=== PATIENT | male | born 1985 | race Caucasian/White ===

== ENCOUNTER 2016-06-29 20:44 | Emergency (ER) | payer OTHER ==
--- NOTE | 2016-06-29 20:53 | ER Document Report ---
ED Medical Screen (RME) - General Stated Complaint: URINARY ISSUE Time seen by provider: 20:50 Mode of Arrival: Wheelchair Information source: Patient Notes: 31-year-old male presents to ED for urinary retention since last night with severe pain to the left flank and suprapubic area. States that he feels like his his genitals are getting pulled out. He has a history of kidney stones but never pain like this. States has nausea cannot vomit due to a Minal. I have greeted and performed a rapid initial assessment of this patient. A comprehensive ED assessment and evaluation of the patient, analysis of test results and completion of medical decision making process will be conducted by an additional ED providers. TRAVEL OUTSIDE OF THE [place] IN LAST 30 DAYS: No - Related Data Allergies/Adverse Reactions: ciprofloxacin [From Cipro] Allergy (Severe, Verified 03/15/16 17:30) Shortness of Breath gadoteridol [From Prohance] Allergy (Severe, Verified 04/06/16 12:57) Shortness of Breath hyoscyamine sulfate [From Levsin] Allergy (Severe, Verified 03/15/16 17:30) Shortness of Breath metoclopramide HCl [From Reglan] Allergy (Severe, Verified 03/15/16 17:30) Shortness of Breath promethazine HCl [From Phenergan] Allergy (Severe, Verified 03/15/16 17:30) Shortness of Breath Past Medical History - Past Medical History Cardiac Medical History: Reports: Hx Coronary Artery Disease - CARDIAC CATH/ LOOP RECORDER/ ABLATION X 2, Hx Heart Attack - X 3 Pulmonary Medical History: Reports: Hx Pneumonia Neurological Medical History: Reports: Hx Seizures - 2012- COMA FOR ONE WEEK- MEDICATION INDUCED Renal/ Medical History: Reports: Hx Kidney Stones - 23 stones GI Medical History: Reports: Hx Hiatal Hernia Musculoskeltal Medical History: Reports Hx Arthritis, Reports Hx Musculoskeletal Deformity, Reports Hx Musculoskeletal Trauma Psychiatric Medical History: Reports: Hx Anxiety, Hx Post Traumatic Stress Disorder Past Surgical History: Reports: Hx Abdominal Surgery - hernia repair, Minal Fundoplication, Hx Appendectomy, Hx Cardiac Surgery - 2X ablation, Hx Inguinal Hernia - 2, Hx Orthopedic Surgery - R shoulder - Immunizations Immunizations up to date: Yes Hx Diphtheria, Pertussis, Tetanus Vaccination: Yes - 09/24/2015
[2016-06-29] MEDS ORDERED: IBUPROFEN 600 MG TABLET PO ONE (20:57)
[2016-06-29] MEDS ORDERED: ONDANSETRON ODT 4 MG TAB (6 TAB/DSPK) PO PRN (20:57)
[2016-06-29] MEDS ORDERED: MORPHINE SULFATE 10 MG/ML INJ IV ONE (22:58)
[2016-06-29] MEDS ORDERED: NORMAL SALINE 1000 ML 1,000 ML IV ONE (22:59)
--- NOTE | 2016-06-29 23:01 | ER Document Report ---
ED GI/ - General Chief Complaint: Urinary Problem Stated Complaint: URINARY ISSUE Time seen by provider: 22:55 Mode of Arrival: Wheelchair Notes: Patient is a 31-year-old male that comes emergency department for chief complaint of inability to urinate today, states that he felt nauseated, felt sharp pain in his left lower abdomen and sharp pain in his flank worse on the left side. Patient states he felt like he was getting chills earlier. Patient has a known history of kidney stones and a left-sided hemorrhagic cyst, states he is seen [facility] urology and they are pending a scan for monitoring. TRAVEL OUTSIDE OF THE [place] IN LAST 30 DAYS: No - Related Data Allergies/Adverse Reactions: ciprofloxacin [From Cipro] Allergy (Severe, Verified 03/15/16 17:30) Shortness of Breath gadoteridol [From Prohance] Allergy (Severe, Verified 04/06/16 12:57) Shortness of Breath hyoscyamine sulfate [From Levsin] Allergy (Severe, Verified 03/15/16 17:30) Shortness of Breath metoclopramide HCl [From Reglan] Allergy (Severe, Verified 03/15/16 17:30) Shortness of Breath promethazine HCl [From Phenergan] Allergy (Severe, Verified 03/15/16 17:30) Shortness of Breath Past Medical History - General Information source: Patient - Social History Smoking Status: Never Smoker Chew tobacco use (# tins/day): Yes Frequency of alcohol use: Rare Drug Abuse: None Lives with: Family Family History: Reviewed & Not Pertinent, Arthritis, CAD, CVA, DM, Hyperlipidemia, Hypertension, Malignancy, Thyroid Disfunction Patient has suicidal ideation: No Patient has homicidal ideation: No - Past Medical History Cardiac Medical History: Reports: Hx Coronary Artery Disease - CARDIAC CATH/ LOOP RECORDER/ ABLATION X 2, Hx Heart Attack - X 3 Pulmonary Medical History: Reports: Hx Pneumonia Neurological Medical History: Reports: Hx Seizures - 2012- COMA FOR ONE WEEK- MEDICATION INDUCED Renal/ Medical History: Reports: Hx Kidney Stones - 23 stones. Denies: Hx Peritoneal Dialysis GI Medical History: Reports: Hx Hiatal Hernia Musculoskeltal Medical History: Reports Hx Arthritis, Reports Hx Musculoskeletal Deformity, Reports Hx Musculoskeletal Trauma Psychiatric Medical History: Reports: Hx Anxiety, Hx Post Traumatic Stress Disorder Past Surgical History: Reports: Hx Abdominal Surgery - hernia repair, Minal Fundoplication, Hx Appendectomy, Hx Cardiac Surgery - 2X ablation, Hx Inguinal Hernia - 2, Hx Orthopedic Surgery - R shoulder - Immunizations Immunizations up to date: Yes Hx Diphtheria, Pertussis, Tetanus Vaccination: Yes - 09/24/2015 Hx Pneumococcal Vaccination: 06/03/13 Review of Systems - Review of Systems Constitutional: No symptoms reported EENT: No symptoms reported Cardiovascular: No symptoms reported Respiratory: No symptoms reported Gastrointestinal: No symptoms reported Genitourinary: See HPI Male Genitourinary: No symptoms reported Musculoskeletal: No symptoms reported Skin: No symptoms reported Hematologic/Lymphatic: No symptoms reported Neurological/Psychological: No symptoms reported Physical Exam - Vital signs Vitals: Temp Pulse Resp BP Pulse Ox 98 F 118 H 20 129/86 H 100 06/29/16 20:50 06/29/16 20:50 06/29/16 20:50 06/29/16 20:50 06/29/16 20:50 Interpretation: Normal - General General appearance: Anxious In distress: Moderate - Patient appears to be in pain, pacing - HEENT Head: Normocephalic, Atraumatic Eyes: Normal Conjunctiva: Normal Extraocular movements intact: Yes Eyelashes: Normal Pupils: PERRL Sinus: Normal Nasal: Normal Mouth/Lips: Normal Mucous membranes: Normal Pharynx: Normal Neck: Normal - Respiratory Respiratory status: No respiratory distress Chest status: Nontender Breath sounds: Normal. No: Decreased air movement, Wheezing Chest palpation: Normal - Cardiovascular Rhythm: Regular Heart sounds: Normal auscultation Murmur: No - Abdominal Inspection: Normal Distension: No distension Bowel sounds: Normal Tenderness: Tender - Tender generally in the left lower abdomen Organomegaly: No organomegaly - Genitourinary Inspection: Normal Tenderness: Nontender Cremasteric reflex: Normal. No: Right reflex absent, Left reflex absent Scrotum: Normal - Back Back: Normal, Nontender. No: Tender, CVA tenderness - Extremities General upper extremity: Normal inspection, Nontender, Normal strength, Normal temperature General lower extremity: Normal inspection, Nontender, Normal strength, Normal temperature - Neurological Neuro grossly intact: Yes Cognition: Normal Orientation: AAOx4 [place] Coma Scale Eye Opening: Spontaneous [place] Coma Scale Verbal: Oriented [place] Coma Scale Motor: Obeys Commands [place] Coma Scale Total: 15 Speech: Normal Motor strength normal: LUE, RUE, LLE, RLE Sensory: Normal - Psychological Associated symptoms: Anxious - Skin Skin Temperature: Warm Skin Moisture: Dry Skin Color: Normal Course - Re-evaluation Re-evalutation: Patient had a Ramirez catheter placed before I saw the patient, he states that he felt somewhat better afterwards, less than 400 mL of urine output, abdomen is gig tender on the left side. Unremarkable genital exam, nonspecific back exam. Afebrile, not hypotensive. Tachycardia initially. Ultrasound shows no abnormality, laboratory workup was unremarkable, patient needed additional rounds of medication but afterwards became asymptomatic. Ramirez catheter was removed. After this patient states he feels much better, prepared to follow-up with his urologist for likely passing a kidney stone, requesting to leave. Discussed return precautions including fever, severe pain , etc. Patient states understanding and agreement. - Vital Signs Vital signs: Temp Pulse Resp BP Pulse Ox 97.5 F 88 20 92/66 L 95 06/30/16 03:32 06/30/16 03:32 06/30/16 03:32 06/30/16 03:32 06/30/16 03:32 - Laboratory Result Diagrams: 06/30/16 00:08 06/30/16 00:08 Laboratory results interpreted by me: 06/29/16 06/30/16 06/30/16 21:46 00:08 00:08 RBC 4.34 L Hgb 12.6 L Hct 36.3 L RDW 14.5 H Potassium 3.2 L Glucose 148 H Urine Glucose (UA) 50 H Urine Ketones TRACE H Discharge - Discharge Clinical Impression: Flank pain Abdominal pain Qualifiers: Abdominal location: lower abdomen, unspecified Qualified Code(s): R10.30 - Lower abdominal pain, unspecified Condition: Stable Disposition: HOME, SELF-CARE Additional Instructions: Your ultrasound does not show infection or swelling, your lab and urine workup is unremarkable. It is likely you are passing a stone. Take pain medication as prescribed, take nausea medicine if needed, follow-up with your urologist for additional management. Return to the emergency department for any concerning worsening symptoms including fever, severe pain, etc. Prescriptions: Ondansetron [Zofran Odt 4 mg Tablet] 1 - 2 tab PO Q4H PRN #15 tab.rapdis PRN Reason: For Nausea/Vomiting Oxycodone HCl/Acetaminophen [Percocet 5-325 mg Tablet] 1 - 2 tab PO Q4H PRN #20 tablet PRN Reason: Referrals: ARNIE MORENO PA-C [Primary Care Provider] - Follow up as needed
[2016-06-30] MEDS ORDERED: DIPHENHYDRAMINE HCL 50 MG/ML VIAL IV ONE ×2 (00:10→02:05)
[2016-06-30 00:17] LABS: ABSOLUTE BASOPHILS # (AUTO) 0.1 10^3/uL (0.0-0.2); ABSOLUTE EOSINOPHILS # (AUTO) 0.1 10^3/uL (0.0-0.6); ABSOLUTE LYMPHOCYTES (AUTO) 2.3 10^3/uL (0.5-4.7); ABSOLUTE MONOCYTES (AUTO) 0.5 10^3/uL (0.1-1.4); ABSOLUTE NEUT (AUTO) 5.3 10^3/uL (1.7-8.2); BASOPHILS % (AUTO) 0.9 % (0-2); EOSINOPHILS % (AUTO) 0.8 % (0-6); HEMATOCRIT 36.3 % (37.9-51.0); HEMOGLOBIN 12.6 g/dL (13.5-17.0); HGB HCT DIFFERENCE 1.5; LYMPHOCYTES % (AUTO) 28.4 % (13-45); MEAN CORPUSCULAR HGB CONC 34.6 g/dL (32.0-36.0); MEAN CORPUSCULAR VOLUME 84 fl (80-97); MONOCYTES % (AUTO) 5.9 % (3-13); RED BLOOD COUNT 4.34 10^6/uL (4.35-5.55); RED CELL DISTRIBUTION WIDTH 14.5 % (11.5-14.0); WHITE BLOOD COUNT 8.3 10^3/uL (4.0-10.5)
[2016-06-30] MEDS ORDERED: HYDROMORPHONE HCL INJ/PF 2 MG/ML AMPULE IV ONE ×2 (00:28→01:50)
[2016-06-30 01:09] LABS: ANION GAP 16 (5-19)
[2016-06-30 01:18] LABS: BLOOD UREA NITROGEN 12 mg/dL (7-20); CARBON DIOXIDE 24 mmol/L (22-30); CHLORIDE 103 mmol/L (98-107); GLUCOSE 148 mg/dL (75-110); POTASSIUM 3.2 mmol/L (3.6-5.0); SODIUM 142.6 mmol/L (137-145)
[2016-06-30] MEDS ORDERED: KETOROLAC TROMETHAMINE INJ/PF 30 MG/1 ML SDV IV ONE (01:50)
[2016-06-30 01:51] LABS: AMORPHOUS SEDIMENT,URINE TRACE /HPF; APPEARANCE,URINE TURBID; BILIRUBIN,URINE NEGATIVE (NEGATIVE); CALCIUM OXALATE CRYSTALS,URINE FEW /HPF; GLUCOSE, URINE 50 mg/dL (NEGATIVE); KETONES,URINE TRACE mg/dL (NEGATIVE); LEUKOCYTE ESTERASE,URINE NEGATIVE (NEGATIVE); NITRITE,URINE NEGATIVE (NEGATIVE); PROTEIN,URINE NEGATIVE (NEGATIVE); URINE SPECIFIC GRAVITY 1.024; UROBILINOGEN,URINE NEGATIVE mg/dL (<2.0)
[2016-06-30 04:55] VITALS: BP 92/66
== END 2016-06-30 03:32 | disposition home or self-care (01) ==
LOC: ER 20:44
DX: R10.30 Lower abdominal pain, unspecified (principal); R33.9 Retention of urine, unspecified; R11.0 Nausea; I25.10 Atherosclerotic heart disease of native coronary artery without angina pectoris; Z88.3 Allergy status to other anti-infective agents; Z87.442 Personal history of urinary calculi; I25.2 Old myocardial infarction
CPT/HCPCS: 96376; 99284; 96361; 51702; 96374; 96375; 36415; 85025; 80048; 81001; 76775; J1200; J1885; J2270; J1170; J7030

== ENCOUNTER 2016-07-03 19:16 | Emergency (ER) | payer OTHER ==
[2016-07-03] MEDS ORDERED: ASPIRIN 81 MG TABLET, CHEWABLE PO ONE (20:06)
--- NOTE | 2016-07-03 20:06 | ER Document Report ---
ED Medical Screen (RME) - General Stated Complaint: URINARY PROBLEM Time seen by provider: 20:04 Mode of Arrival: Ambulatory Information source: Patient TRAVEL OUTSIDE OF THE [place] IN LAST 30 DAYS: No - HPI Patient complains to provider of: CAN'T PEE, HEART RACING, HEADACHE Onset: Other - URINE PROB 1 1/2 WEEKS, HEART RACING TODAY. Onset/Duration: Sudden Context: SEEN SATURDAY FOR SAME ON URINE Quality of pain: Pressure Severity: Severe Pain Level: 5 Associated Symptoms: Chest pain, Dysuria, Headache. denies: Fever, Nausea, Vomiting Exacerbated by: Denies Relieved by: Denies Similar symptoms previously: Yes - SATURDAY IN ER Recently seen / treated by doctor: No - Related Data Smoking: Non-smoker Frequency of alcohol use: None Drug Abuse: None Pertinent History: I have greeted and performed a rapid initial assessment of this patient. A comprehensive ED assessment and evaluation of the patient, analysis of test results and completion of the medical decision making process will be conducted by additional ED providers. Allergies/Adverse Reactions: ciprofloxacin [From Cipro] Allergy (Severe, Verified 07/03/16 20:00) Shortness of Breath gadoteridol [From Prohance] Allergy (Severe, Verified 07/03/16 20:00) Shortness of Breath hyoscyamine sulfate [From Levsin] Allergy (Severe, Verified 07/03/16 20:00) Shortness of Breath metoclopramide HCl [From Reglan] Allergy (Severe, Verified 07/03/16 20:00) Shortness of Breath promethazine HCl [From Phenergan] Allergy (Severe, Verified 07/03/16 20:00) Shortness of Breath Past Medical History - Past Medical History Cardiac Medical History: Reports: Hx Coronary Artery Disease - CARDIAC CATH/ LOOP RECORDER/ ABLATION X 2, Hx Heart Attack - X 3 Pulmonary Medical History: Reports: Hx Pneumonia Neurological Medical History: Reports: Hx Seizures - 2012- COMA FOR ONE WEEK- MEDICATION INDUCED Renal/ Medical History: Reports: Hx Kidney Stones - 23 stones. Denies: Hx Peritoneal Dialysis GI Medical History: Reports: Hx Hiatal Hernia Musculoskeltal Medical History: Reports Hx Arthritis, Reports Hx Musculoskeletal Deformity, Reports Hx Musculoskeletal Trauma Psychiatric Medical History: Reports: Hx Anxiety, Hx Post Traumatic Stress Disorder Past Surgical History: Reports: Hx Abdominal Surgery - hernia repair, Minal Fundoplication, Hx Appendectomy, Hx Cardiac Surgery - 2X ablation, Hx Inguinal Hernia - 2, Hx Orthopedic Surgery - R shoulder - Immunizations Immunizations up to date: Yes Hx Diphtheria, Pertussis, Tetanus Vaccination: Yes - 09/24/2015 Physical Exam - Vital signs Vitals: Temp Pulse Resp BP Pulse Ox 98.7 F 132 H 20 143/99 H 98 07/03/16 19:26 07/03/16 19:26 07/03/16 19:26 07/03/16 19:26 07/03/16 19:26 Course - Vital Signs Vital signs: Temp Pulse Resp BP Pulse Ox 98.4 F 94 16 138/92 H 99 07/03/16 22:20 07/03/16 22:20 07/03/16 22:20 07/03/16 22:20 07/03/16 22:20 - Laboratory Result Diagrams: 07/03/16 20:10 07/03/16 20:10 Laboratory results interpreted by me: 07/03/16 07/03/16 20:10 20:10 Hgb 13.3 L RDW 14.6 H Sodium 146.0 H Potassium 3.4 L Glucose 72 L Creatine Kinase 196 H Doctor's Discharge - Discharge Clinical Impression: Pain with urination, Urinary hesitancy, Impetigo Condition: Good Disposition: HOME, SELF-CARE Additional Instructions: Please follow-up with your urologist as scheduled. Take the oxybutynin as prescribed. Return if you develop fever greater than 101F, persistent vomiting , pass out or have any other symptoms that are concerning to you. Please treat the area of rash on your face with the mupirocin as prescribed for the next 10 days. Return if you develop worsening of the rash, increased pain, fever greater than 1F, pus draining from the area, or have any other symptoms that are concerning to you. Prescriptions: Mupirocin 22 gm TP TID #22 oint..gm. Oxybutynin Chloride 5 mg PO TID PRN #30 tablet PRN Reason: Referrals: ARNIE MORENO PA-C [Primary Care Provider] - Follow up as needed
[2016-07-03 20:22] LABS: ABSOLUTE EOSINOPHILS # (AUTO) 0.1 10^3/uL (0.0-0.6); ABSOLUTE LYMPHOCYTES (AUTO) 1.9 10^3/uL (0.5-4.7); ABSOLUTE MONOCYTES (AUTO) 0.8 10^3/uL (0.1-1.4); ABSOLUTE NEUT (AUTO) 5.5 10^3/uL (1.7-8.2); BASOPHILS % (AUTO) 0.5 % (0-2); EOSINOPHILS % (AUTO) 1.6 % (0-6); HEMATOCRIT 38.7 % (37.9-51.0); HEMOGLOBIN 13.3 g/dL (13.5-17.0); HGB HCT DIFFERENCE 1.2; LYMPHOCYTES % (AUTO) 22.8 % (13-45); MEAN CORPUSCULAR HEMOGLOBIN 29.2 pg (27.0-33.4); MEAN CORPUSCULAR HGB CONC 34.4 g/dL (32.0-36.0); MEAN CORPUSCULAR VOLUME 85 fl (80-97); MONOCYTES % (AUTO) 9.4 % (3-13); RED BLOOD COUNT 4.56 10^6/uL (4.35-5.55); RED CELL DISTRIBUTION WIDTH 14.6 % (11.5-14.0); SEGMENTED NEUTROPHILS % (AUTO) 65.7 % (42-78); WHITE BLOOD COUNT 8.4 10^3/uL (4.0-10.5)
[2016-07-03 20:41] LABS: ALANINE AMINOTRANSFERASE 23 U/L (21-72); ALBUMIN 4.4 g/dL (3.5-5.0); ALKALINE PHOSPHATASE 56 U/L (38-126); ANION GAP 15 (5-19); ASPARTATE AMINO TRANSFERASE 19 U/L (17-59); BILIRUBIN,TOTAL 0.5 mg/dL (0.2-1.3); BLOOD UREA NITROGEN 10 mg/dL (7-20); CALCIUM 10.1 mg/dL (8.4-10.2); CARBON DIOXIDE 30 mmol/L (22-30); CHLORIDE 101 mmol/L (98-107); CREATINE KINASE 196 U/L (55-170); GLUCOSE 72 mg/dL (75-110); POTASSIUM 3.4 mmol/L (3.6-5.0); TOTAL PROTEIN 7.9 g/dL (6.3-8.2)
[2016-07-03 20:53] LABS: CREATINE KINASE MB 0.51 ng/mL (<4.55)
[2016-07-03 20:54] LABS: TROPONIN I < 0.012 ng/mL
--- NOTE | 2016-07-03 22:16 | ER Document Report ---
ED General - General Chief Complaint: Urinary Problem Stated Complaint: URINARY PROBLEM Mode of Arrival: Ambulatory Notes: Patient is a 31-year-old male with past medical history of SVT and frequent nephrolithiasis who presents for the second time in several days with concerns of incomplete urination. At time of assessment, patient is extremely anxious, tremulous and admits to being highly anxious about his ability to urinate and start a stream. States that he has been trying to get all of his urologist unsuccessfully. He has not tried anything to relieve his symptoms. Nothing worsens the symptoms. Admits to history of similar symptoms in the past. On chart review, patient had a normal renal and bladder ultrasound several days ago as well as a normal laboratory assessment. Patient is also complaining of self-inflicted abrasions over the lip when he was "tried to pick as it". He describes these areas is being moderately painful, constant in no discomfort, and burning in nature. Nothing improves or worsens this discomfort. He has not had any associated constitutional symptoms. TRAVEL OUTSIDE OF THE [place] IN LAST 30 DAYS: No - Related Data Allergies/Adverse Reactions: ciprofloxacin [From Cipro] Allergy (Severe, Verified 07/03/16 20:00) Shortness of Breath gadoteridol [From Prohance] Allergy (Severe, Verified 07/03/16 20:00) Shortness of Breath hyoscyamine sulfate [From Levsin] Allergy (Severe, Verified 07/03/16 20:00) Shortness of Breath metoclopramide HCl [From Reglan] Allergy (Severe, Verified 07/03/16 20:00) Shortness of Breath promethazine HCl [From Phenergan] Allergy (Severe, Verified 07/03/16 20:00) Shortness of Breath Past Medical History - General Information source: Patient - Social History Smoking Status: Never Smoker Chew tobacco use (# tins/day): Yes Frequency of alcohol use: None Drug Abuse: None Lives with: Spouse/Significant other Family History: Reviewed & Not Pertinent, Arthritis, CAD, CVA, DM, Hyperlipidemia, Hypertension, Malignancy, Thyroid Disfunction Patient has suicidal ideation: No Patient has homicidal ideation: No - Past Medical History Cardiac Medical History: Reports: Hx Coronary Artery Disease - CARDIAC CATH/ LOOP RECORDER/ ABLATION X 2, Hx Heart Attack - X 3 Pulmonary Medical History: Reports: Hx Pneumonia Neurological Medical History: Reports: Hx Seizures - [facility] 2013- COMA FOR ONE WEEK- MEDICATION INDUCED Renal/ Medical History: Reports: Hx Kidney Stones - 23 stones. Denies: Hx Peritoneal Dialysis GI Medical History: Reports: Hx Hiatal Hernia Musculoskeltal Medical History: Reports Hx Arthritis, Reports Hx Musculoskeletal Deformity, Reports Hx Musculoskeletal Trauma Psychiatric Medical History: Reports: Hx Anxiety, Hx Post Traumatic Stress Disorder Past Surgical History: Reports: Hx Abdominal Surgery - hernia repair, Minal Fundoplication, Hx Appendectomy, Hx Cardiac Surgery - 2X ablation, Hx Inguinal Hernia - 2, Hx Orthopedic Surgery - R shoulder - Immunizations Immunizations up to date: Yes Hx Diphtheria, Pertussis, Tetanus Vaccination: Yes - 09/24/2015 Hx Pneumococcal Vaccination: 06/03/13 Review of Systems - Review of Systems Notes: Constitutional: Negative for fever. HENT: Negative for sore throat. Eyes: Negative for visual changes. Cardiovascular: Negative for chest pain. Positive for palpitations Respiratory: Negative for shortness of breath. Gastrointestinal: Negative for abdominal pain, vomiting or diarrhea. Genitourinary: Positive for urinary hesitancy and dysuria Musculoskeletal: Negative for back pain. Skin: Positive for rash. Neurological: Negative for headaches, weakness or numbness. 10 point ROS negative except as marked above and in HPI. Physical Exam - Vital signs Vitals: Temp Pulse Resp BP Pulse Ox 98.7 F 132 H 20 143/99 H 98 07/03/16 19:26 07/03/16 19:26 07/03/16 19:26 07/03/16 19:26 07/03/16 19:26 Interpretation: Tachycardic Notes: PHYSICAL EXAMINATION: GENERAL: Anxious and tremulous but in no acute distress HEAD: Atraumatic, normocephalic. EYES: Pupils equal round and reactive to light, extraocular movements intact, sclera anicteric, conjunctiva are normal. ENT: nares patent, oropharynx clear without exudates. Moist mucous membranes. NECK: Normal range of motion, supple without lymphadenopathy LUNGS: Breath sounds clear to auscultation bilaterally and equal. No wheezes rales or rhonchi. HEART: Regular rate and rhythm without murmurs ABDOMEN: Soft, nontender, normoactive bowel sounds. No guarding, no rebound. No masses appreciated. EXTREMITIES: Normal range of motion, no pitting or edema. No cyanosis. NEUROLOGICAL: No focal neurological deficits. Moves all extremities spontaneously and on command. PSYCH: Normal mood, normal affect. SKIN: Warm, Dry, normal turgor, no rashes or lesions noted. Course - Re-evaluation Re-evalutation: 07/04/16 03:08 Patient presents with concerns of urinary retention although there is no evidence of this on history or exam is patient is able to urinate here in the emergency department without any difficulty. Bedside ultrasound shows relatively empty bladder and no evidence of hydronephrosis. Likewise patient's creatinine and Bielen a completely normal. Patient did arrive severely tachycardic and I suspect that this is related to his anxiety as of the time of my assessment patient's heart rate has normalized and he admits to feeling much more calm at this time. His EKG shows sinus tachycardia but is otherwise unremarkable and unchanged from prior. Will start on oxybutynin for consideration of possible bladder spasms and recommend outpatient urology follow -up. Regarding the rash on his lip: Consistent with impetigo. He'll be started on mupirocin. No constitutional or systemic symptoms to suggest bacteremia or need for admission.At this time will discharge with return precautions and follow-up recommendations. Verbal discharge instructions given a the bedside and opportunity for questions given. Medication warnings reviewed. Patient is in agreement with this plan and has verbalized understanding of return precautions and the need for primary care follow-up in the next 24-72 hours. - Vital Signs Vital signs: Temp Pulse Resp BP Pulse Ox 98.4 F 94 16 138/92 H 99 07/03/16 22:20 07/03/16 22:20 07/03/16 22:20 07/03/16 22:20 07/03/16 22:20 - Laboratory Result Diagrams: 07/03/16 20:10 07/03/16 20:10 Laboratory results interpreted by me: 07/03/16 07/03/16 20:10 20:10 Hgb 13.3 L RDW 14.6 H Sodium 146.0 H Potassium 3.4 L Glucose 72 L Creatine Kinase 196 H Discharge - Discharge Clinical Impression: Pain with urination, Urinary hesitancy, Impetigo Condition: Good Disposition: HOME, SELF-CARE Additional Instructions: Please follow-up with your urologist as scheduled. Take the oxybutynin as prescribed. Return if you develop fever greater than 101F, persistent vomiting , pass out or have any other symptoms that are concerning to you. Please treat the area of rash on your face with the mupirocin as prescribed for the next 10 days. Return if you develop worsening of the rash, increased pain, fever greater than 1F, pus draining from the area, or have any other symptoms that are concerning to you. Prescriptions: Mupirocin 22 gm TP TID #22 oint..gm. Oxybutynin Chloride 5 mg PO TID PRN #30 tablet PRN Reason: Referrals: ARNIE MORENO PA-C [Primary Care Provider] - Follow up as needed
[2016-07-03 22:39] VITALS: BP 138/92
--- NOTE | 2016-07-04 09:24 | EKG REPORT ---
SEVERITY:- ABNORMAL ECG - SINUS TACHYCARDIA PROBABLE LEFT ATRIAL ABNORMALITY LVH WITH SECONDARY REPOLARIZATION ABNORMALITY BORDERLINE PROLONGED QT INTERVAL : Confirmed by: Tommy Thomas 04-Jul-2016 09:23:01
== END 2016-07-03 22:25 | disposition home or self-care (01) ==
LOC: ER 19:16
DX: R39.11 Hesitancy of micturition (principal); R30.0 Dysuria; L01.00 Impetigo, unspecified; F41.9 Anxiety disorder, unspecified; R00.2 Palpitations; R00.0 Tachycardia, unspecified; R25.1 Tremor, unspecified; I25.10 Atherosclerotic heart disease of native coronary artery without angina pectoris; I25.2 Old myocardial infarction; Z87.442 Personal history of urinary calculi; Z88.1 Allergy status to other antibiotic agents; Z88.8 Allergy status to other drugs, medicaments and biological substances
CPT/HCPCS: 36415; 71010; 80053; 82550; 82553; 84484; 85025; 93005; 93010; 99284

== ENCOUNTER 2016-09-27 18:41 | Emergency (ER) | payer OTHER ==
[2016-09-27] MEDS ORDERED: ASPIRIN 81 MG TABLET, CHEWABLE PO ONE (19:25)
--- NOTE | 2016-09-27 19:29 | ER Document Report ---
ED Cardiac - General Stated Complaint: CHEST PAIN Time seen by provider: 19:20 Notes: Patient is a 31-year-old male with a history of SVT that comes emergency department for chief complaint of 3 days of intermittent symptoms of left-sided chest discomfort, sensation of heart racing, and intermittent shortness of breath. 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 He denies injury, fever, cough, but he does admit to continuous long distance travel for his job, just got back from [facility]. He denies lower extremity swelling, history of blood clot, he does not smoke but he dips. He reports current chest pain over the left side, denies current shortness of breath or sensation of rapid heart rate. TRAVEL OUTSIDE OF THE [place] IN LAST 30 DAYS: No - Related Data Allergies/Adverse Reactions: ciprofloxacin [From Cipro] Allergy (Severe, Verified 07/03/16 20:00) Shortness of Breath gadoteridol [From Prohance] Allergy (Severe, Verified 07/03/16 20:00) Shortness of Breath hyoscyamine sulfate [From Levsin] Allergy (Severe, Verified 07/03/16 20:00) Shortness of Breath metoclopramide HCl [From Reglan] Allergy (Severe, Verified 07/03/16 20:00) Shortness of Breath promethazine HCl [From Phenergan] Allergy (Severe, Verified 07/03/16 20:00) Shortness of Breath Past Medical History - General Information source: Patient - Social History Smoking Status: Never Smoker Frequency of alcohol use: None Drug Abuse: None Lives with: Family Family History: Reviewed & Not Pertinent, Arthritis, CAD, CVA, DM, Hyperlipidemia, Hypertension, Malignancy, Thyroid Disfunction - Past Medical History Cardiac Medical History: Reports: Hx Coronary Artery Disease - CARDIAC CATH/ LOOP RECORDER/ ABLATION X 2 Pulmonary Medical History: Reports: Hx Pneumonia Neurological Medical History: Reports: Hx Seizures - 2012- COMA FOR ONE WEEK- MEDICATION INDUCED Renal/ Medical History: Reports: Hx Kidney Stones - 23 stones. Denies: Hx Peritoneal Dialysis GI Medical History: Reports: Hx Hiatal Hernia Musculoskeltal Medical History: Reports Hx Arthritis, Reports Hx Musculoskeletal Deformity, Reports Hx Musculoskeletal Trauma Psychiatric Medical History: Reports: Hx Anxiety, Hx Post Traumatic Stress Disorder Past Surgical History: Reports: Hx Abdominal Surgery - hernia repair, Minal Fundoplication, Hx Appendectomy, Hx Cardiac Surgery - 2X ablation, Hx Inguinal Hernia - 2, Hx Orthopedic Surgery - R shoulder - Immunizations Immunizations up to date: Yes Hx Diphtheria, Pertussis, Tetanus Vaccination: Yes - 09/24/2015 Hx Pneumococcal Vaccination: 06/03/13 Review of Systems - Review of Systems Constitutional: No symptoms reported EENT: No symptoms reported Cardiovascular: See HPI Respiratory: No symptoms reported Gastrointestinal: No symptoms reported Genitourinary: No symptoms reported Male Genitourinary: No symptoms reported Musculoskeletal: No symptoms reported Skin: No symptoms reported Hematologic/Lymphatic: No symptoms reported Neurological/Psychological: No symptoms reported Physical Exam - Vital signs Vitals: Resp Pulse Ox 12 98 09/27/16 19:37 09/27/16 19:37 Interpretation: Normal - General General appearance: Appears well, Alert In distress: None - HEENT Head: Normocephalic, Atraumatic Eyes: Normal Conjunctiva: Normal Extraocular movements intact: Yes Eyelashes: Normal Pupils: PERRL Sinus: Normal Nasal: Normal Mouth/Lips: Normal Mucous membranes: Normal Pharynx: Normal Neck: Normal - Respiratory Respiratory status: No respiratory distress Chest status: Tender - There is some tenderness over the left chest wall extending from the fifth intercostal space already up to the clavicle, no ecchymosis, erythema, or abnormalities noted visually palpation Breath sounds: Normal. No: Decreased air movement, Wheezing Chest palpation: Normal - Cardiovascular Rhythm: Regular. No: Tachycardia Heart sounds: Normal auscultation, S1 appreciated, S2 appreciated Murmur: No - Abdominal Inspection: Normal Distension: No distension Bowel sounds: Normal Tenderness: Nontender. No: Tender - Back Back: Normal, Nontender. No: Tender - Extremities General upper extremity: Normal inspection, Nontender, Normal ROM, Normal strength General lower extremity: Normal inspection, Nontender, Normal ROM, Normal strength - Neurological Neuro grossly intact: Yes Cognition: Normal Orientation: AAOx4 Shena Coma Scale Eye Opening: Spontaneous Shena Coma Scale Verbal: Oriented Shena Coma Scale Motor: Obeys Commands Shena Coma Scale Total: 15 Speech: Normal Motor strength normal: LUE, RUE, LLE, RLE Sensory: Normal - Psychological Associated symptoms: Normal affect, Normal mood - Skin Skin Temperature: Warm Skin Moisture: Dry Skin Color: Normal Course - Re-evaluation Re-evalutation: During patient's monitoring his heart rate and rhythm were normal, no other abnormal vital signs noted. EKG shows some artifact, sinus rhythm, no T-wave or ST segment acute findings, no other abnormality noted. Chest x-ray unremarkable. D-dimer is negative. Chemistry shows mild hypokalemia, normal magnesium. Patient given potassium supplement. On reevaluation patient is calm, smiling, relaxed, states he feels great and he wants to go home. This is unchanged from patient initially appearing nervous. No evidence of concerning life-threatening abnormality, ACS, PE, patient asymptomatic, compliant with Cardizem reportedly, has close cardiac follow-up. Patient has some chest wall tenderness on examination, slightly elevated CK, this was discussed with patient as well. Discussed return precautions, patient will be discharged with these, patient states understanding and agreement. - Vital Signs Vital signs: Temp Pulse Resp BP Pulse Ox 98.1 F 74 16 130/76 H 98 09/27/16 21:00 09/27/16 21:00 09/27/16 21:00 09/27/16 21:00 09/27/16 21:00 - Laboratory Result Diagrams: 09/27/16 19:42 09/27/16 19:42 Laboratory results interpreted by me: 09/27/16 09/27/16 19:42 19:42 RBC 4.30 L Hgb 12.6 L Hct 36.5 L Sodium 146.8 H Potassium 3.4 L Creatine Kinase 304 H Discharge - Discharge Clinical Impression: Rapid heart rate Condition: Stable Disposition: HOME, SELF-CARE Additional Instructions: Your potassium is low, however the workup otherwise shows no acute abnormalities. Increase potassium in diet or take occasional supplement, follow-up with cardiology as planned. Return to the emergency department for any concerning or worsening symptoms - fast heart rate that will not resolve, passing out, chest pain, or any other concerning symptoms.
[2016-09-27 20:09] LABS: ABSOLUTE BASOPHILS # (AUTO) 0.1 10^3/uL (0.0-0.2); ABSOLUTE EOSINOPHILS # (AUTO) 0.1 10^3/uL (0.0-0.6); ABSOLUTE LYMPHOCYTES (AUTO) 2.1 10^3/uL (0.5-4.7); ABSOLUTE MONOCYTES (AUTO) 0.6 10^3/uL (0.1-1.4); ABSOLUTE NEUT (AUTO) 4.7 10^3/uL (1.7-8.2); BASOPHILS % (AUTO) 0.7 % (0-2); EOSINOPHILS % (AUTO) 1.3 % (0-6); HEMATOCRIT 36.5 % (37.9-51.0); HEMOGLOBIN 12.6 g/dL (13.5-17.0); HGB HCT DIFFERENCE 1.3; LYMPHOCYTES % (AUTO) 27.8 % (13-45); MEAN CORPUSCULAR HEMOGLOBIN 29.4 pg (27.0-33.4); MEAN CORPUSCULAR HGB CONC 34.6 g/dL (32.0-36.0); MEAN CORPUSCULAR VOLUME 85 fl (80-97); MONOCYTES % (AUTO) 7.9 % (3-13); RED CELL DISTRIBUTION WIDTH 13.4 % (11.5-14.0); SEGMENTED NEUTROPHILS % (AUTO) 62.3 % (42-78); WHITE BLOOD COUNT 7.6 10^3/uL (4.0-10.5)
[2016-09-27 20:29] LABS: ALANINE AMINOTRANSFERASE 22 U/L (21-72); ALBUMIN 4.4 g/dL (3.5-5.0); ALKALINE PHOSPHATASE 51 U/L (38-126); ANION GAP 17 (5-19); ASPARTATE AMINO TRANSFERASE 17 U/L (17-59); BILIRUBIN,DIRECT 0.3 mg/dL (0.0-0.4); BILIRUBIN,TOTAL 0.9 mg/dL (0.2-1.3); BLOOD UREA NITROGEN 12 mg/dL (7-20); CARBON DIOXIDE 26 mmol/L (22-30); CHLORIDE 104 mmol/L (98-107); CREATINE KINASE 304 U/L (55-170); CREATININE RESULT 1.11 mg/dL (0.52-1.25); GLUCOSE 88 mg/dL (75-110); POTASSIUM 3.4 mmol/L (3.6-5.0); SODIUM 146.8 mmol/L (137-145); TOTAL PROTEIN 7.4 g/dL (6.3-8.2)
[2016-09-27 20:38] LABS: CREATINE KINASE MB 0.74 ng/mL (<4.55)
[2016-09-27 20:39] LABS: TROPONIN I < 0.012 ng/mL
[2016-09-27] MEDS ORDERED: POTASSIUM CHLORIDE 10 MEQ TABLET.SA PO ONE (20:55)
[2016-09-27 21:26] VITALS: BP 130/76
--- NOTE | 2016-09-28 09:40 | EKG REPORT ---
SEVERITY:- BORDERLINE ECG - SINUS RHYTHM BORDERLINE T ABNORMALITIES, INFERIOR LEADS : Confirmed by: Tommy Thomas 28-Sep-2016 09:39:10
== END 2016-09-27 21:00 | disposition home or self-care (01) ==
LOC: ER 18:41
DX: R00.2 Palpitations (principal); R07.9 Chest pain, unspecified
CPT/HCPCS: 36415; 71010; 80053; 82550; 82553; 83735; 84484; 85025; 85379; 93005; 93010; 99285

== ENCOUNTER 2016-11-22 21:24 | Emergency (ER) | payer OTHER ==
[2016-11-22] MEDS ORDERED: SULFAMETHOXAZOLE/TRIMETHOPRIM 800-160 MG TABLET PO ONE (23:25)
[2016-11-22] MEDS ORDERED: CEPHALEXIN 500 MG CAPSULE PO ONE (23:25)
[2016-11-22] MEDS ORDERED: OXYCODONE-ACETAMINOPHEN 5-325 MG TABLET PO ONE (23:26)
--- NOTE | 2016-11-22 23:28 | ER Document Report ---
HPI - HPI Patient complains to provider of: skin abnormality Pain Level: 3 Context: Patient is a 31-year-old male who comes emergency department for chief complaint of a red area in his left lower back where he had a spinal stimulator taken out last year, he states that the area had an infection once before, he states the area has become more tender and warm for the past couple of days. He denies vomiting, fever, diabetes. - REPRODUCTIVE Reproductive: DENIES: : - DERM Skin Color: Normal Past Medical History - General Information source: Patient - Social History Smoking Status: Never Smoker Drug Abuse: None Lives with: Family Family History: Reviewed & Not Pertinent, Arthritis, CAD, CVA, DM, Hyperlipidemia, Hypertension, Malignancy, Thyroid Disfunction Patient has suicidal ideation: No Patient has homicidal ideation: No - Past Medical History Cardiac Medical History: Reports: Other - SVT: CARDIAC CATH/ LOOP RECORDER/ ABLATION X 2 Pulmonary Medical History: Reports: Hx Pneumonia Neurological Medical History: Reports: Hx Seizures - 2012- COMA FOR ONE WEEK- MEDICATION INDUCED Renal/ Medical History: Reports: Hx Kidney Stones - 23 stones. Denies: Hx Peritoneal Dialysis GI Medical History: Reports: Hx Hiatal Hernia Musculoskeltal Medical History: Reports Hx Arthritis, Reports Hx Musculoskeletal Deformity, Reports Hx Musculoskeletal Trauma Psychiatric Medical History: Reports: Hx Anxiety, Hx Post Traumatic Stress Disorder Past Surgical History: Reports: Hx Abdominal Surgery - hernia repair, Minal Fundoplication, Hx Appendectomy, Hx Cardiac Surgery - 2X ablation, Hx Inguinal Hernia - 2, Hx Orthopedic Surgery - R shoulder - Immunizations Immunizations up to date: Yes Hx Diphtheria, Pertussis, Tetanus Vaccination: Yes - 09/24/2015 Hx Pneumococcal Vaccination: 06/03/13 Vertical Provider Document - CONSTITUTIONAL General Appearance: No Apparent Distress, Thin - INFECTION CONTROL TRAVEL OUTSIDE OF THE [place] IN LAST 30 DAYS: No - HEENT HEENT: Atraumatic, Normocephalic - NECK Neck: Normal Inspection - RESPIRATORY Respiratory: Breath Sounds Normal, No Respiratory Distress O2 Sat by Pulse Oximetry: 100 - CARDIOVASCULAR Cardiovascular: Regular Rate, Regular Rhythm - GI/ABDOMEN Gastrointestinal: Abdomen Soft, Abdomen Non-Tender - MUSCULOSKELETAL/EXTREMETIES Musculoskeletal/Extremeties: MAEW, FROM, Non-Tender - NEURO Level of Consciousness: Awake, Alert, Appropriate - DERM Integumentary: Warm, Dry, No Rash Adult Front & Back Diagram: 1 - There is an abrasion over the lateral aspect of a linear horizontal surgical scar, surrounding this abrasion there is warmth, erythema, and mild tenderness. No induration, fluctuance, abnormal discharge, streaking away from the area, lymphadenopathy near the area, or other abnormality noted Course - Re-evaluation Re-evalutation: Area has a small skin abrasion over the site, appears to be from his belt, has surrounding erythema and warmth with some tenderness, no induration or fluctuance, no evidence of abscess, appears to be cellulitis. Patient will be covered for staph and strep with Bactrim and Keflex, discussed care of the abrasion, discussed monitoring, discussed follow-up, I commended follow-up within the next 1-2 days for recheck, recommended he return immediately if this worsens in any way. Patient states understanding and agreement. - Vital Signs Vital signs: Temp Pulse Resp BP Pulse Ox 98.2 F 101 H 18 115/92 H 100 11/22/16 21:47 11/22/16 21:47 11/22/16 21:47 11/22/16 21:47 11/22/16 21:47 Discharge - Discharge Clinical Impression: Skin infection Condition: Stable Disposition: HOME, SELF-CARE Additional Instructions: There is a skin abrasion over the site and exam is also consistent with cellulitis infection. Take the antibiotics as directed, keep clean dressing over the site, clean gently with soap/water, observe for any worsening symptoms. Return immediately for any worsening symptoms - spreading redness, discolored discharge, swelling of the area, fever, etc. Prescriptions: Cephalexin Monohydrate [Keflex 500 mg Capsule] 500 mg PO QID #28 capsule Sulfamethoxazole/Trimethoprim [Bactrim Ds Tablet] 1 each PO BID #14 tablet Forms: Return to Work
[2016-11-22 23:43] VITALS: BP 118/90
== END 2016-11-22 23:30 | disposition home or self-care (01) ==
LOC: ER 21:24
DX: S30.810A Abrasion of lower back and pelvis, initial encounter (principal); L08.9 Local infection of the skin and subcutaneous tissue, unspecified; X58.XXXA Exposure to other specified factors, initial encounter; Z98.890 Other specified postprocedural states
CPT/HCPCS: 99283

== ENCOUNTER 2016-11-28 13:58 | Emergency (ER) | payer OTHER ==
[2016-11-28] MEDS ORDERED: HYDROCODONE/ACETAMINOPHEN 5-325 MG TABLET PO ONE (14:58)
[2016-11-28] MEDS ORDERED: ONDANSETRON 4 MG TAB.RAPDIS PO ONE (14:58)
--- NOTE | 2016-11-28 15:03 | ER Document Report ---
ED Medical Screen (RME) - General Chief Complaint: Groin Pain Stated Complaint: GROIN PAIN Time Seen by Provider: 11/28/16 14:54 Notes: Patient is a 31-year-old male, past medical history left inguinal hernia repair ~5 years ago, presents with increasing left inguinal pain after he lifted heavy furniture yesterday. He felt a pop and bulge. He is having pain when he bears down when he presses on the area. He had a bowel movement earlier today. Also having nausea. Denies testicular pain, penile discharge, dysuria, vomiting or rash. PE: Left inguinal hernia, unable to reduce in Triage, no penile discharge I have greeted and performed a rapid initial assessment of this patient. A comprehensive ED assessment and evaluation of the patient, analysis of test results and completion of the medical decision making process will be conducted by additional ED providers. TRAVEL OUTSIDE OF THE [place] IN LAST 30 DAYS: No - Related Data Allergies/Adverse Reactions: ciprofloxacin [From Cipro] Allergy (Severe, Verified 11/28/16 14:50) Shortness of Breath gadoteridol [From Prohance] Allergy (Severe, Verified 11/28/16 14:50) Shortness of Breath hyoscyamine sulfate [From Levsin] Allergy (Severe, Verified 11/28/16 14:50) Shortness of Breath metoclopramide HCl [From Reglan] Allergy (Severe, Verified 11/28/16 14:50) Shortness of Breath promethazine HCl [From Phenergan] Allergy (Severe, Verified 11/28/16 14:50) Shortness of Breath Past Medical History - Past Medical History Cardiac Medical History: Reports: Hx Coronary Artery Disease - CARDIAC CATH/ LOOP RECORDER/ ABLATION X 2, Hx Heart Attack - X 3 Pulmonary Medical History: Reports: Hx Pneumonia Neurological Medical History: Reports: Hx Seizures - 2012- COMA FOR ONE WEEK- MEDICATION INDUCED Renal/ Medical History: Reports: Hx Kidney Stones - 23 stones. Denies: Hx Peritoneal Dialysis GI Medical History: Reports: Hx Hiatal Hernia Musculoskeltal Medical History: Reports Hx Arthritis, Reports Hx Musculoskeletal Deformity, Reports Hx Musculoskeletal Trauma Psychiatric Medical History: Reports: Hx Anxiety, Hx Post Traumatic Stress Disorder Past Surgical History: Reports: Hx Abdominal Surgery - hernia repair, Minal Fundoplication, Hx Appendectomy, Hx Cardiac Surgery - 2X ablation, Hx Inguinal Hernia - 2, Hx Orthopedic Surgery - R shoulder - Immunizations Immunizations up to date: Yes Hx Diphtheria, Pertussis, Tetanus Vaccination: Yes - 09/24/2015 Physical Exam - Vital signs Vitals: Temp Pulse Resp BP Pulse Ox 98.2 F 112 H 20 114/90 H 100 11/28/16 14:10 11/28/16 14:10 11/28/16 14:10 11/28/16 14:10 11/28/16 14:10 Course - Vital Signs Vital signs: Temp Pulse Resp BP Pulse Ox 98.2 F 112 H 20 114/90 H 100 11/28/16 14:10 11/28/16 14:10 11/28/16 14:10 11/28/16 14:10 11/28/16 14:10
[2016-11-28 15:17] LABS: APPEARANCE,URINE CLEAR; BILIRUBIN,URINE NEGATIVE (NEGATIVE); GLUCOSE, URINE NEGATIVE (NEGATIVE); KETONES,URINE NEGATIVE (NEGATIVE); LEUKOCYTE ESTERASE,URINE NEGATIVE (NEGATIVE); NITRITE,URINE NEGATIVE (NEGATIVE); PROTEIN,URINE NEGATIVE (NEGATIVE); URINE SPECIFIC GRAVITY 1.014; UROBILINOGEN,URINE NEGATIVE mg/dL (<2.0)
--- NOTE | 2016-11-28 15:18 | ER Document Report ---
ED GI/ - General Chief Complaint: Groin Pain Stated Complaint: GROIN PAIN Time Seen by Provider: 11/28/16 14:54 Mode of Arrival: Ambulatory Information source: Patient Notes: Patient is a 31-year-old male who presents to the ER today for left lower groin pain that began yesterday after he lifted a heavy piece of furniture at approximately 4 PM. Patient states that he has a significant history of inguinal hernias including left and right open repairs. He states that he felt a pop when he lifted the piece of furniture yesterday. He states he has been in constant pain since. He admits to some swelling in the groin as well. he admits to some nausea. Denies any dysuria, hematuria, Vomiting, diarrhea. TRAVEL OUTSIDE OF THE [place] IN LAST 30 DAYS: No - Related Data Allergies/Adverse Reactions: ciprofloxacin [From Cipro] Allergy (Severe, Verified 11/28/16 14:50) Shortness of Breath gadoteridol [From Prohance] Allergy (Severe, Verified 11/28/16 14:50) Shortness of Breath hyoscyamine sulfate [From Levsin] Allergy (Severe, Verified 11/28/16 14:50) Shortness of Breath Iodinated Contrast- Oral and IV Dye Allergy (Severe, Verified 11/28/16 15:47) metoclopramide HCl [From Reglan] Allergy (Severe, Verified 11/28/16 14:50) Shortness of Breath promethazine HCl [From Phenergan] Allergy (Severe, Verified 11/28/16 14:50) Shortness of Breath Past Medical History - General Information source: Patient - Social History Smoking Status: Current Every Day Smoker Family History: Reviewed & Not Pertinent, Arthritis, CAD, CVA, DM, Hyperlipidemia, Hypertension, Malignancy, Thyroid Disfunction Patient has suicidal ideation: No Patient has homicidal ideation: No - Past Medical History Cardiac Medical History: Reports: Hx Coronary Artery Disease - CARDIAC CATH/ LOOP RECORDER/ ABLATION X 2, Hx Heart Attack - X 3 Pulmonary Medical History: Reports: Hx Pneumonia Neurological Medical History: Reports: Hx Seizures - [place]2012- COMA FOR ONE WEEK- MEDICATION INDUCED Renal/ Medical History: Reports: Hx Kidney Stones - 23 stones. Denies: Hx Peritoneal Dialysis GI Medical History: Reports: Hx Hiatal Hernia Musculoskeltal Medical History: Reports Hx Arthritis, Reports Hx Musculoskeletal Deformity, Reports Hx Musculoskeletal Trauma Psychiatric Medical History: Reports: Hx Anxiety, Hx Post Traumatic Stress Disorder Past Surgical History: Reports: Hx Abdominal Surgery - hernia repair, Minal Fundoplication, Hx Appendectomy, Hx Cardiac Surgery - 2X ablation, Hx Inguinal Hernia - 2, Hx Orthopedic Surgery - R shoulder - Immunizations Immunizations up to date: Yes Hx Diphtheria, Pertussis, Tetanus Vaccination: Yes - 09/24/2015 Hx Pneumococcal Vaccination: 06/03/13 Review of Systems - Review of Systems Constitutional: No symptoms reported EENT: No symptoms reported Cardiovascular: No symptoms reported Respiratory: No symptoms reported Gastrointestinal: See HPI Genitourinary: No symptoms reported Male Genitourinary: See HPI Musculoskeletal: No symptoms reported Skin: No symptoms reported Hematologic/Lymphatic: No symptoms reported Neurological/Psychological: No symptoms reported Physical Exam - Vital signs Vitals: Temp Pulse Resp BP Pulse Ox 98.2 F 112 H 20 114/90 H 100 11/28/16 14:10 11/28/16 14:10 11/28/16 14:10 11/28/16 14:10 11/28/16 14:10 - Notes Notes: PHYSICAL EXAMINATION: GENERAL: uncomfortable, but in no acute distress. HEAD: Atraumatic, normocephalic. EYES: Pupils equal round and reactive to light, extraocular movements intact, sclera anicteric, conjunctiva are normal. NECK: Normal range of motion, supple without lymphadenopathy LUNGS: CTAB and equal. No wheezes rales or rhonchi. HEART: Regular rate and rhythm without murmurs ABDOMEN: Soft, left lower quadrant tenderness in inguinal area, no obvious hernia noted. No guarding, no rebound BACK: no vertebral tenderness, normal ROM GI/: no obvious hernia noted to inguinal canal, no CVA tenderness EXTREMITIES: Normal range of motion, no pitting edema. No cyanosis. NEUROLOGICAL: Cranial nerves grossly intact. Normal sensory/motor exams. PSYCH: Normal mood, normal affect. SKIN: Warm, Dry, normal turgor, no rashes or lesions noted Course - Re-evaluation Re-evalutation: 11/28/16 17:41 Dr. Scott did evaluate the patient with me, he advised CT scan. CT reports no hernia, incarcerated or not. Pt still complaining of pain. At this point it may be skeletal or nerve related. I will send patient home with some muscle relaxers and something for pain and have him follow-up with general surgeon as he feels his hernia gets worse. There is no evidence to prove that he did not come in with a hernia that was reduced by 2 providers exams today before CAT scan. - Vital Signs Vital signs: Temp Pulse Resp BP Pulse Ox 98.2 F 112 H 20 114/90 H 100 11/28/16 14:10 11/28/16 14:10 11/28/16 14:10 11/28/16 14:10 11/28/16 14:10 Discharge - Discharge Clinical Impression: Left groin pain Condition: Stable Disposition: HOME, SELF-CARE Additional Instructions: Please take muscle relaxers and pain medication and if groin still hurts or gets worse make appt with Dr. Grande to have evaluated. Return immediately for any new or worsening symptoms. Follow up with primary care provider, call tomorrow to make followup appointment. Prescriptions: Cyclobenzaprine HCl [Flexeril 10 mg Tablet] 10 mg PO TIDP PRN #15 tab PRN Reason: Tramadol HCl 50 mg PO Q8 PRN #15 tablet PRN Reason: Referrals: ARNIE MORENO PA-C [Primary Care Provider] - Follow up as needed CARMEN GRANDE MD [ACTIVE STAFF] - Follow up as needed
[2016-11-28] MEDS ORDERED: NORMAL SALINE 1000 ML 1,000 ML IV ONE (15:32)
[2016-11-28] MEDS ORDERED: MORPHINE SULFATE 10 MG/ML INJ IV ONE ×2 (15:33→17:36)
[2016-11-28] MEDS ORDERED: FAMOTIDINE INJ/PF 20 MG/2 ML SDV IV ONE (15:56)
[2016-11-28] MEDS ORDERED: DIPHENHYDRAMINE HCL 50 MG/ML VIAL IV ONE (15:56)
--- NOTE | 2016-11-28 16:58 | RADIOLOGY REPORT (SQ) ---
EXAM DESCRIPTION: CT ABD/PELVIS WITH IV ONLY COMPLETED DATE/TIME: 11/28/2016 4:40 pm REASON FOR STUDY: poss incarcerated inguinal hernia left COMPARISON: None. TECHNIQUE: CT scan of the abdomen and pelvis performed using helical scanning technique with dynamic intravenous contrast injection. No oral contrast. Images reviewed with lung, soft tissue, and bone windows. Reconstructed coronal and sagittal MPR images reviewed. Delayed images for evaluation of the urinary system also acquired. All images stored on PACS. All CT scanners at this facility use dose modulation, iterative reconstruction, and/or weight based d osing when appropriate to reduce radiation dose to as low as reasonably achievable (ALARA). [facility]: Dose Right [facility]: CareDose [facility]: Dose Right [facility]: Teradose 4D [facility]: Cardo Medical CONTRAST TYPE AND DOSE: contrast/concentration: Isovue 370.00 mg/ml; Total Contrast Delivered: 70.0 ml; Total Saline Delivered: 66.0 ml RENAL FUNCTION: None required. The patient is less than 50 years old. RADIATION DOSE: Up-to-date CT equipment and radiation dose reduction techniques were employed. CTDIv ol: 5.2 - 6.4 mGy. DLP: 664 mGy-cm.. LIMITATIONS: None. FINDINGS: LOWER CHEST: No significant findings. No nodules or infiltrates. LIVER: Normal size. No masses. No dilated ducts. SPLEEN: Normal size. No focal lesions. PANCREAS: No masses. No significant calcifications. No adjacent inflammation or peripancreatic fluid collections. Pancreatic duct not dilated. GALLBLADDER: No identified stones by CT criteria. No inflammatory changes to suggest cholecystitis. ADRENAL GLANDS: No significant masses or asymmetry. RIGHT KIDNEY AND URETER: No solid masses. No significant calcifications. No hydronephrosis or hyd roureter. LEFT KIDNEY AND URETER: No solid masses. Small cortical cysts. No significant calcifications. No hydronephrosis or hydroureter. AORTA AND VESSELS: No aneurysm. No dissection. Renal arteries, SMA, celiac without stenosis. RETROPERITONEUM: No retroperitoneal adenopathy, hemorrhage or masses. BOWEL AND PERITONEAL CAVITY: There is focal area of soft tissue thickening seen in the region of the left inguinal canal measuring 1.8 x 2.8 cm. Could represent an area of postoperative fluid/scar tiss ue. This does not appear to be loop of bowel. There is no evidence of inguinal hernia. No bowel ob struction. No bowel mass lesions. No adenopathy. APPENDIX: Surgically absent. PELVIS: No mass or free fluid. Normal bladder. Clips noted adjacent the testicles. ABDOMINAL WALL: Postsurgical changes from left inguinal hernia repair. No mass lesions. No other he rnias identified. BONES: No significant or acute findings. OTHER: No other significant finding. IMPRESSION: There is some soft tissue seen in the anterior abdominal wall of the sided left T inguin al canal which does not demonstrate enhancement. This could represent an area of scar tissue in her postoperative fluid from the hernia repair. There is no evidence of incarcerated or recurrent left i nguinal hernia. No evidence of bowel obstruction. No other hernias identified. No other significan t or acute abnormality identified in the abdomen pelvis. TECHNICAL DOCUMENTATION: JOB ID: [id number] Quality ID # [id number]: Final reports with documentation of one or more dose reduction techniques (e.g., Au tomated exposure control, adjustment of the mA and/or kV according to patient size, use of iterative reconstruction technique) 2010 [employer]- All Rights Reserved
[2016-11-28 18:13] VITALS: BP 123/78
== END 2016-11-28 18:12 | disposition home or self-care (01) ==
LOC: ER 13:58
DX: R10.32 Left lower quadrant pain (principal); R11.0 Nausea; F17.200 Nicotine dependence, unspecified, uncomplicated
CPT/HCPCS: 96376; 99284; 96374; 96375; 81001; 74177; J1200; S0119; J2270; J7030; S0028

== ENCOUNTER 2016-12-02 21:53 | Emergency (ER) | payer OTHER ==
[2016-12-03] MEDS ORDERED: MAGNESIUM CITRATE 296 ML BOTTLE PO ONE (01:54)
[2016-12-03] MEDS ORDERED: HYDROCODONE/ACETAMINOPHEN 5-325 MG 6 TAB/DSPK PO PRN (01:54)
--- NOTE | 2016-12-03 02:00 | ER Document Report ---
ED General - General Chief Complaint: Groin Pain Stated Complaint: ANAL PAIN Time Seen by Provider: 12/03/16 01:14 Mode of Arrival: Ambulatory Information source: Patient, Relative TRAVEL OUTSIDE OF THE [place] IN LAST 30 DAYS: No - HPI Notes: Patient is a 31-year-old male presents emergency department with report of pain to the left groin that he has had for the last 5 days that he has had since he lifted some heavy furniture and felt like something ripped in the area where his previous hernia repair occurred. The patient had a CT scan of the abdomen and pelvis on 11/28/16 which was negative for hernia recurrence, but there was a small amount of fluid noted versus postsurgical scarring in the left inguinal region. The patient reports that since then he has been taking tramadol and Flexeril, and now he has not had a bowel movement for 4 days, whereas he normally has a bowel movement twice per day. Patient reports no fever or chills but now states he has some pain to the left Lower quadrant notes intermittent. Patient had a negative urinalysis on 11/28/16. No numbness or paresthesia. No fever or chills. No testicular pain. - Related Data Allergies/Adverse Reactions: ciprofloxacin [From Cipro] Allergy (Severe, Verified 11/28/16 14:50) Shortness of Breath gadoteridol [From Prohance] Allergy (Severe, Verified 11/28/16 14:50) Shortness of Breath hyoscyamine sulfate [From Levsin] Allergy (Severe, Verified 11/28/16 14:50) Shortness of Breath Iodinated Contrast- Oral and IV Dye Allergy (Severe, Verified 11/28/16 15:47) metoclopramide HCl [From Reglan] Allergy (Severe, Verified 11/28/16 14:50) Shortness of Breath promethazine HCl [From Phenergan] Allergy (Severe, Verified 11/28/16 14:50) Shortness of Breath Past Medical History - General Information source: Patient - Social History Smoking Status: Never Smoker Frequency of alcohol use: None Drug Abuse: None Lives with: Family Family History: Reviewed & Not Pertinent, Arthritis, CAD, CVA, DM, Hyperlipidemia, Hypertension, Malignancy, Thyroid Disfunction Patient has suicidal ideation: No Patient has homicidal ideation: No - Past Medical History Cardiac Medical History: Reports: Hx Coronary Artery Disease - CARDIAC CATH/ LOOP RECORDER/ ABLATION X 2, Hx Heart Attack - X 3 Pulmonary Medical History: Reports: Hx Pneumonia Neurological Medical History: Reports: Hx Seizures - 2012- COMA FOR ONE WEEK- MEDICATION INDUCED Renal/ Medical History: Reports: Hx Kidney Stones - 23 stones. Denies: Hx Peritoneal Dialysis GI Medical History: Reports: Hx Hiatal Hernia Musculoskeltal Medical History: Reports Hx Arthritis, Reports Hx Musculoskeletal Deformity, Reports Hx Musculoskeletal Trauma Psychiatric Medical History: Reports: Hx Anxiety, Hx Post Traumatic Stress Disorder Past Surgical History: Reports: Hx Abdominal Surgery - hernia repair, Minal Fundoplication, Hx Appendectomy, Hx Cardiac Surgery - 2X ablation, Hx Inguinal Hernia - 2, Hx Orthopedic Surgery - R shoulder - Immunizations Immunizations up to date: Yes Hx Diphtheria, Pertussis, Tetanus Vaccination: Yes - 09/24/2015 Hx Pneumococcal Vaccination: 06/03/13 Review of Systems - Review of Systems Notes: REVIEW OF SYSTEMS: CONSTITUTIONAL : Denies fever, chills, or sweats. EENT: Denies eye, ear, throat, or mouth pain or symptoms. Denies nasal or sinus congestion or discharge. Denies throat, tongue, or mouth swelling or difficulty swallowing. CARDIOVASCULAR: Denies chest pain. Denies palpitations or racing or irregular heart beat. Denies ankle edema. RESPIRATORY: Denies cough, cold, or chest congestion. Denies shortness of breath, difficulty breathing, or wheezing. GASTROINTESTINAL: Denies nausea, vomiting, or diarrhea. Denies blood in vomitus, stools, or per rectum. Denies black, tarry stools. GENITOURINARY: Denies difficulty urinating, painful urination, burning, frequency, blood in urine, or discharge. MUSCULOSKELETAL: Denies back or neck pain or stiffness. Denies joint pain or swelling. SKIN: Denies rash, lesions or sores. HEMATOLOGIC : Denies easy bruising or bleeding. LYMPHATIC: Denies swollen, enlarged glands. NEUROLOGICAL: Denies confusion or altered mental status. Denies passing out or loss of consciousness. Denies dizziness or lightheadedness. Denies headache. Denies weakness or paralysis or loss of use of either side. Denies problems with gait or speech. Denies sensory loss, numbness, or tingling. Denies seizures. PSYCHIATRIC: Denies anxiety or stress. Denies depression, suicidal ideation, or homicidal ideation. ALL OTHER SYSTEMS REVIEWED AND NEGATIVE. Dictation was performed using [employer] voice recognition software Physical Exam - Vital signs Vitals: Temp Pulse Resp BP Pulse Ox 98 F 124 H 18 110/76 97 12/02/16 22:48 12/02/16 22:48 12/02/16 22:48 12/02/16 22:48 12/02/16 22:48 - Notes Notes: PHYSICAL EXAMINATION: GENERAL: Well-appearing, well-nourished and in no acute distress. HEAD: Atraumatic, normocephalic. EYES: Pupils equal round and reactive to light, extraocular movements intact, sclera anicteric, conjunctiva are normal. ENT: Nares patent, oropharynx clear without exudates. Moist mucous membranes. NECK: Normal range of motion, supple without lymphadenopathy LUNGS: Breath sounds clear to auscultation bilaterally and equal. No wheezes rales or rhonchi. HEART: Regular rate and rhythm without murmurs. Heart rate was 84 at the bedside. ABDOMEN: Soft, nondistended abdomen. No guarding, no rebound. No masses appreciated. Patient is mildly tender to the left lower quadrant region. No rebound or guarding. No pulsatile mass. Surgical scar from bilateral hernia repairs well-healed. Genitourinary exam: No evidence for inguinal hernia or epididymal pain or testicular torsion or mass on the testicle. Patient describes his pain as being above the inguinal ligament on the left. There is no evidence for femoral hernia. No penile discharge. Circumsized. Rectal exam. Heme-negative. No significant stool in the vault. No prostate tenderness or other abnormality noted. Musculoskeletal: Normal range of motion, no pitting or edema. No cyanosis. NEUROLOGICAL: Cranial nerves grossly intact. Normal speech, normal gait. Normal sensory, motor exams PSYCH: Normal mood, normal affect. SKIN: Warm, Dry, normal turgor, no rashes or lesions noted. Course - Re-evaluation Re-evalutation: 12/03/16 02:06 Old records will reviewed on the patient which showed multiple visits for various pain conditions. Patient has not yet followed up with surgery as he was previously instructed. Repeat pulse rate was 84. No clinical suggestion for bowel obstruction, and there was no diverticulitis or kidney stone or other abnormality noted on previous CT scan 5 days ago. I question if the pain is related to some scarring from previous hernia repair. - Vital Signs Vital signs: Temp Pulse Resp BP Pulse Ox 98 F 124 H 18 110/76 97 12/02/16 22:48 12/02/16 22:48 12/02/16 22:48 12/02/16 22:48 12/02/16 22:48 Discharge - Discharge Clinical Impression: Constipation by delayed colonic transit Abdominal pain Qualifiers: Abdominal location: left lower quadrant Qualified Code(s): R10.32 - Left lower quadrant pain Condition: Stable Disposition: HOME, SELF-CARE Instructions: Abdominal Pain ([facility]), Constipation ([facility]) Additional Instructions: Liquid diet until pain is resolved. No heavy lifting until pain is resolved. Drink plenty of fluids. Followup with Dr. Grande for continued pain. Prescriptions: Diclofenac Sodium [Voltaren 50 mg Tablet.] 50 mg PO Q8HP PRN #30 tablet.dr PRN Reason: Polyethylene Glycol 3350 [Miralax] 1 cap PO DAILY #527 powder
[2016-12-03 02:31] VITALS: BP 118/82
== END 2016-12-03 02:30 | disposition home or self-care (01) ==
LOC: ER 21:53
DX: K59.01 Slow transit constipation (principal); R10.32 Left lower quadrant pain; I25.10 Atherosclerotic heart disease of native coronary artery without angina pectoris; I25.2 Old myocardial infarction; Z87.442 Personal history of urinary calculi; Z98.890 Other specified postprocedural states; Z88.1 Allergy status to other antibiotic agents; Z88.8 Allergy status to other drugs, medicaments and biological substances; Z91.041 Radiographic dye allergy status; Z90.49 Acquired absence of other specified parts of digestive tract
CPT/HCPCS: 99283; J3490

== ENCOUNTER 2017-01-17 16:45 | Emergency (ER) | payer OTHER ==
[2017-01-17] MEDS ORDERED: ACETAMINOPHEN 325 MG TABLET PO ONE (19:32)
[2017-01-17 19:33] VITALS: BP 107/71
--- NOTE | 2017-01-17 21:24 | ER Document Report ---
ED Extremity Problem, Lower - General Chief Complaint: Foot Injury Stated Complaint: RIGHT FOOR INJURY Time Seen by Provider: 01/17/17 19:13 TRAVEL OUTSIDE OF THE [place] IN LAST 30 DAYS: No - HPI Patient complains to provider of: Injury - had a 5th wheel hitch fall on his right foot earlier today, has been able to walk with limp, no bruising, swelling Where: Home Context: Crush Recent injury: Yes Exacerbated by: Movement, Walking Relieved by: Elevation, Ice, Rest - Related Data Allergies/Adverse Reactions: ciprofloxacin [From Cipro] Allergy (Severe, Verified 01/17/17 16:50) Shortness of Breath gadoteridol [From Prohance] Allergy (Severe, Verified 01/17/17 16:50) Shortness of Breath hyoscyamine sulfate [From Levsin] Allergy (Severe, Verified 01/17/17 16:50) Shortness of Breath Iodinated Contrast- Oral and IV Dye Allergy (Severe, Verified 01/17/17 16:50) metoclopramide HCl [From Reglan] Allergy (Severe, Verified 01/17/17 16:50) Shortness of Breath promethazine HCl [From Phenergan] Allergy (Severe, Verified 01/17/17 16:50) Shortness of Breath Past Medical History - Social History Smoking Status: Never Smoker Chew tobacco use (# tins/day): No Frequency of alcohol use: Occasional Drug Abuse: None Family History: Reviewed & Not Pertinent, Arthritis, CAD, CVA, DM, Hyperlipidemia, Hypertension, Malignancy, Thyroid Disfunction Patient has suicidal ideation: No Patient has homicidal ideation: No - Past Medical History Cardiac Medical History: Reports: Hx Coronary Artery Disease - CARDIAC CATH/ LOOP RECORDER/ ABLATION X 2, Hx Heart Attack - X 3 Pulmonary Medical History: Reports: Hx Pneumonia Neurological Medical History: Reports: Hx Seizures - [place]2012- COMA FOR ONE WEEK- MEDICATION INDUCED Renal/ Medical History: Reports: Hx Kidney Stones - 23 stones. Denies: Hx Peritoneal Dialysis GI Medical History: Reports: Hx Hiatal Hernia Musculoskeltal Medical History: Reports Hx Arthritis, Reports Hx Musculoskeletal Deformity, Reports Hx Musculoskeletal Trauma Psychiatric Medical History: Reports: Hx Anxiety, Hx Post Traumatic Stress Disorder Past Surgical History: Reports: Hx Abdominal Surgery - hernia repair, Minal Fundoplication, Hx Appendectomy, Hx Cardiac Surgery - 2X ablation, Hx Inguinal Hernia - 2, Hx Orthopedic Surgery - R shoulder - Immunizations Immunizations up to date: Yes Hx Diphtheria, Pertussis, Tetanus Vaccination: Yes - 09/24/2015 Hx Pneumococcal Vaccination: 06/03/13 Review of Systems - Review of Systems Constitutional: No symptoms reported Musculoskeletal: See HPI Skin: No symptoms reported -: Yes All other systems reviewed and negative Physical Exam - Vital signs Vitals: Temp Pulse Resp BP Pulse Ox 98.4 F 106 H 16 137/87 H 100 01/17/17 16:49 01/17/17 16:49 01/17/17 16:49 01/17/17 16:49 01/17/17 16:49 - General General appearance: Appears well, Alert In distress: None - Cardiovascular Pulses: Normal: Dorsalis pedis Normal capillary refill: Yes - Extremities Knee: Normal, Nontender Ankle: Normal, Nontender Foot: Normal, Tender - over 1st metatarsal, Metatarsal compress. pain. No: Abrasion, Deformity, Ecchymosis, Edema, Laceration, Unable to bear weight - Skin Skin Temperature: Warm Skin Moisture: Dry Skin Color: Normal Skin Turgor: Elastic Course - Re-evaluation Re-evalutation: 01/17/17 22:46 Patient is a 31-year-old male presents with crush injury to right foot. No evidence of fracture dislocation noted on x-ray. Patient able to bear weight. Foot neurovascularly intact. Discharge home with crutches and pain medication and to follow-up with primary care as needed - Vital Signs Vital signs: Temp Pulse Resp BP Pulse Ox 98.9 F 74 16 107/71 100 01/17/17 19:32 01/17/17 19:32 01/17/17 19:32 01/17/17 19:32 01/17/17 19:32 Discharge - Discharge Clinical Impression: Foot injury Qualifiers: Encounter type: initial encounter Laterality: right Qualified Code(s): S99.921A - Unspecified injury of right foot, initial encounter Condition: Good Disposition: HOME, SELF-CARE Instructions: Contusion ([facility]), Use of Crutches ([facility]), Ice & Elevation ([facility]) Prescriptions: Ibuprofen [Motrin 800 mg Tablet] 800 mg PO Q8H PRN #30 tab PRN Reason: Forms: Special Work Note, Return to Work Referrals: ARNIE MORENO PA-C [Primary Care Provider] - Follow up as needed
[2017-01-17] MEDS ORDERED: HYDROCODONE/ACETAMINOPHEN 5-325 MG 6 TAB/DSPK PO PRN (21:25)
[2017-01-17] MEDS: OXYCODONE HCL IR 5 MG TABLET PO ONE (21:25)
--- NOTE | 2017-01-18 15:06 | RADIOLOGY REPORT (SQ) ---
EXAM DESCRIPTION: FOOT RIGHT COMPLETE COMPLETED DATE/TIME: 01/17/2017 7:55 pm REASON FOR STUDY: right foot pain COMPARISON: none NUMBER OF VIEWS: 3 TECHNIQUE: AP lateral and oblique views of the right foot LIMITATIONS: None FINDINGS: MINERALIZATION: Normal. BONES: No acute fracture. No dislocation. No worrisome bone lesion. SOFT TISSUES: No swelling. No radiopaque foreign bodies. OTHER: No other significant finding. IMPRESSION: No fracture. TECHNICAL DOCUMENTATION: JOB ID: [id number]
== END 2017-01-17 22:05 | disposition home or self-care (01) ==
LOC: ER 16:45
DX: S97.81XA Crushing injury of right foot, initial encounter (principal); W20.8XXA Other cause of strike by thrown, projected or falling object, initial encounter; Y92.009 Unspecified place in unspecified non-institutional (private) residence as the place of occurrence of the external cause; I25.10 Atherosclerotic heart disease of native coronary artery without angina pectoris; I25.2 Old myocardial infarction; Z88.1 Allergy status to other antibiotic agents; Z91.041 Radiographic dye allergy status; Z88.8 Allergy status to other drugs, medicaments and biological substances
CPT/HCPCS: 99283

== ENCOUNTER 2017-03-03 21:20 | Emergency (ER) | payer OTHER ==
[2017-03-03 21:36] VITALS: BP 126/79
[2017-03-03] MEDS ORDERED: HYDROCODONE/ACETAMINOPHEN 5-325 MG 6 TAB/DSPK PO PRN (22:02)
--- NOTE | 2017-03-03 22:05 | ER Document Report ---
HPI - HPI Patient complains to provider of: Wound recheck Onset: This evening Onset/Duration: Sudden Quality of pain: Achy Pain Level: 4 Context: Patient states that he had a laceration to his left thumb after getting cut with a snuff box finisher a week ago. Patient states he removed his sutures himself yesterday. Patient states he was walking and accidentally struck his hand on the counter and caused his laceration to open up. Patient concerned that wound needs to be reclosed. Associated Symptoms: Other - Open wound to left thumb Exacerbated by: Movement Relieved by: Denies Similar symptoms previously: Yes Recently seen / treated by doctor: Yes - ROS ROS below otherwise negative: Yes Systems Reviewed and Negative: Yes All other systems reviewed and negative - CONSTITUTIONAL Constitutional: DENIES: Fever - NEURO Neurology: DENIES: Weakness - CARDIOVASCULAR Cardiovascular: DENIES: Chest pain - REPRODUCTIVE Reproductive: DENIES: : - DERM Skin Color: Normal Skin Problems: Laceration Past Medical History - General Information source: Patient - Social History Smoking Status: Never Smoker Chew tobacco use (# tins/day): Yes Frequency of alcohol use: Occasional Drug Abuse: None Occupation: [employer] Lives with: Family Family History: Reviewed & Not Pertinent, Arthritis, CAD, CVA, DM, Hyperlipidemia, Hypertension, Malignancy, Thyroid Disfunction Patient has suicidal ideation: No Patient has homicidal ideation: No - Past Medical History Cardiac Medical History: Reports: Hx Coronary Artery Disease - CARDIAC CATH/ LOOP RECORDER/ ABLATION X 2, Hx Heart Attack - X 3 Pulmonary Medical History: Reports: Hx Pneumonia Neurological Medical History: Reports: Hx Seizures - 2012- COMA FOR ONE WEEK- MEDICATION INDUCED Renal/ Medical History: Reports: Hx Kidney Stones - 23 stones. Denies: Hx Peritoneal Dialysis GI Medical History: Reports: Hx Hiatal Hernia Musculoskeltal Medical History: Reports Hx Arthritis, Reports Hx Musculoskeletal Deformity, Reports Hx Musculoskeletal Trauma Psychiatric Medical History: Reports: Hx Anxiety, Hx Post Traumatic Stress Disorder Past Surgical History: Reports: Hx Abdominal Surgery - hernia repair, Minal Fundoplication, Hx Appendectomy, Hx Cardiac Surgery - 2X ablation, Hx Inguinal Hernia - 2, Hx Orthopedic Surgery - R shoulder - Immunizations Immunizations up to date: Yes Hx Diphtheria, Pertussis, Tetanus Vaccination: Yes - 09/24/2015 Hx Pneumococcal Vaccination: 06/03/13 Vertical Provider Document - CONSTITUTIONAL Agree With Documented VS: Yes Exam Limitations: No Limitations General Appearance: WD/WN, No Apparent Distress - INFECTION CONTROL TRAVEL OUTSIDE OF THE [place] IN LAST 30 DAYS: Yes - HEENT HEENT: Atraumatic - NECK Neck: Normal Inspection - RESPIRATORY Respiratory: No Respiratory Distress O2 Sat by Pulse Oximetry: 100 - CARDIOVASCULAR Pulses: Normal: Radial - MUSCULOSKELETAL/EXTREMETIES Musculoskeletal/Extremeties: MAEW, Tender - Tenderness over CMC joint of left thumb - NEURO Level of Consciousness: Awake, Alert, Appropriate Motor/Sensory: No Motor Deficit - DERM Integumentary: Warm, Laceration - 1.2 cm laceration overlying dorsal aspect of left CMC joint, no active bleeding Course - Vital Signs Vital signs: Temp Pulse Resp BP Pulse Ox 98.6 F 100 20 126/79 H 100 03/03/17 21:33 03/03/17 21:33 03/03/17 21:33 03/03/17 21:33 03/03/17 21:33 Procedures - Laceration/Wound Repair Left Thumb Wound length (cm): 1.2 Wound's Depth, Shape: Linear Wound explored: Clean Wound Repaired With: Steri-strips Layer Closure?: No Post-procedure wound care: Sterile dressing applied Post-procedure NV exam normal: Yes Complications: No Discharge - Discharge Clinical Impression: Visit for wound check, Wound dehiscence Condition: Stable Disposition: HOME, SELF-CARE Instructions: Acetaminophen, Use of Xlvp-Sda-Dfgbnom Ibuprofen ([facility]), Care of Steri-Strip Closure ([facility]) Additional Instructions: Return immediately for any new or worsening symptoms Followup with your primary care provider, call tomorrow to make a followup appointment Keep wound covered as it continues to heal Follow-up with the hand specialist for any continued pain or problems Referrals: RAMONA MORENO DO [ACTIVE STAFF] - Follow up tomorrow
== END 2017-03-03 22:18 | disposition home or self-care (01) ==
LOC: ER 21:20
DX: Z48.817 Encounter for surgical aftercare following surgery on the skin and subcutaneous tissue (principal); T81.30XA Disruption of wound, unspecified, initial encounter
CPT/HCPCS: 99282

== ENCOUNTER 2017-03-07 14:48 | Emergency (ER) | payer OTHER ==
[2017-03-07] MEDS ORDERED: LIDOCAINE 1% INJ-PF (10 MG/ML) 30 ML SDV INJ ONE (15:38)
--- NOTE | 2017-03-07 16:30 | RADIOLOGY REPORT (SQ) ---
EXAM DESCRIPTION: HAND LEFT 3 VIEWS COMPLETED DATE/TIME: 03/07/2017 4:05 pm REASON FOR STUDY: swelling/ hx of laceration and loss of function 3 COMPARISON: None. EXAM PARAMETERS: NUMBER OF VIEWS: Three views. TECHNIQUE: AP, lateral and oblique radiographic images acquired of the left hand. LIMITATIONS: [employer]el[employer]. FINDINGS: MINERALIZATION: Normal. BONES: No acute fracture or dislocation. No worrisome bone lesions. JOINTS: No effusions. SOFT TISSUES: No soft tissue swelling. No foreign body. OTHER: No other significant finding. IMPRESSION: NEGATIVE STUDY OF THE LEFT HAND. NO RADIOGRAPHIC EVIDENCE OF ACUTE INJURY. TECHNICAL DOCUMENTATION: JOB ID: [id number] [employer]- All Rights Reserved
--- NOTE | 2017-03-07 17:36 | ER Document Report ---
ED General - General Chief Complaint: Laceration Stated Complaint: LEFT HAND PAIN Time Seen by Provider: 03/07/17 15:21 Information source: Patient Notes: Patient comes t ER with a complaint of left thumb laceration. He tells me that he was out of town in [place] working and is swelf employed doing mechanical refrigeration. He cut the top of his left thumb and went to a local ER there he had sutures placed. He states this occured about 2 weeks ago. The sutures pulled open according to patient and he had the are glued. He is here today because he was returning home and went to lift his suitcase when the area pulled open again. It bleed for about 2 hours and he went to a local walk in clinic and he was sent to this ER. TRAVEL OUTSIDE OF THE [place] IN LAST 30 DAYS: Yes - HPI Onset: Other - about 2 weeks ago Onset/Duration: Sudden, Worse Quality of pain: Achy, Throbbing Severity: Moderate Pain Level: 3 Context: Reopening of wound on top left thumb Associated symptoms: Other - unable to flex or extend the left thumb Similar symptoms previously: Yes Recently seen / treated by doctor: Yes Notes: Has been to at least 2 or 3 facilities - Related Data Allergies/Adverse Reactions: ciprofloxacin [From Cipro] Allergy (Severe, Verified 03/21/17 12:13) Shortness of Breath gadoteridol [From Prohance] Allergy (Severe, Verified 03/21/17 12:13) Shortness of Breath hyoscyamine sulfate [From Levsin] Allergy (Severe, Verified 03/21/17 12:13) Shortness of Breath Iodinated Contrast- Oral and IV Dye Allergy (Severe, Verified 03/21/17 12:13) metoclopramide HCl [From Reglan] Allergy (Severe, Verified 03/21/17 12:13) Shortness of Breath promethazine HCl [From Phenergan] Allergy (Severe, Verified 03/21/17 12:13) Shortness of Breath piperacillin [From Zosyn] Adverse Reaction (Verified 03/21/17 22:49) tazobactam [From Zosyn] Adverse Reaction (Verified 03/21/17 22:49) Past Medical History - General Information source: Patient - Social History Smoking Status: Former Smoker Cigarette use (# per day): No Chew tobacco use (# tins/day): No Frequency of alcohol use: None Drug Abuse: None Lives with: Family, Spouse/Significant other Family History: Reviewed & Not Pertinent, Arthritis, CAD, CVA, DM, Hyperlipidemia, Hypertension, Malignancy, Thyroid Disfunction - Medical History Medical History: Other - See History - Past Medical History Cardiac Medical History: Reports: Hx Coronary Artery Disease - CARDIAC CATH/ LOOP RECORDER/ ABLATION X 2, Hx Heart Attack - X 3 Pulmonary Medical History: Reports: Hx Pneumonia Neurological Medical History: Reports: Hx Seizures - [facility]2012- COMA FOR ONE WEEK- MEDICATION INDUCED Renal/ Medical History: Reports: Hx Kidney Stones - 23 stones. Denies: Hx Peritoneal Dialysis GI Medical History: Reports: Hx Hiatal Hernia Musculoskeltal Medical History: Reports Hx Arthritis, Reports Hx Musculoskeletal Deformity, Reports Hx Musculoskeletal Trauma Psychiatric Medical History: Reports: Hx Anxiety, Hx Post Traumatic Stress Disorder Past Surgical History: Reports: Hx Abdominal Surgery - hernia repair, Minal Fundoplication, Hx Appendectomy, Hx Cardiac Surgery - 2X ablation, Hx Inguinal Hernia - 2, Hx Orthopedic Surgery - R shoulder - Immunizations Immunizations up to date: Yes Hx Diphtheria, Pertussis, Tetanus Vaccination: Yes - 09/24/2015 Hx Pneumococcal Vaccination: 06/03/13 Review of Systems - Review of Systems Constitutional: No symptoms reported EENT: No symptoms reported Cardiovascular: No symptoms reported Respiratory: No symptoms reported Gastrointestinal: No symptoms reported Genitourinary: No symptoms reported Male Genitourinary: No symptoms reported Musculoskeletal: Other - Difficulty moving left thumb Skin: Other - laceration to top left thumb Hematologic/Lymphatic: No symptoms reported Neurological/Psychological: No symptoms reported -: Yes All other systems reviewed and negative Physical Exam - Vital signs Vitals: Temp Pulse BP Pulse Ox 98.1 F 100 140/92 H 100 03/07/17 15:14 03/07/17 15:14 03/07/17 15:14 03/07/17 15:14 - Notes Notes: Examination shows that patient appears uncomfortable and is slightly anxious - General General appearance: Anxious In distress: None - HEENT Head: Normocephalic, Atraumatic - Respiratory Respiratory status: No respiratory distress Breath sounds: Normal - Cardiovascular Rhythm: Regular Heart sounds: Normal auscultation Murmur: No - Abdominal Inspection: Normal Distension: No distension - Extremities General upper extremity: Tender General lower extremity: Normal inspection Hand: Tender, Laceration, Tendon deficit, Other - Examination of the left thumb shows approx 1.8 cm linear laceration dorsum of the left thumb. Bleeding controlled. Dehesence of wound noted, Mild erythema also noted. Patient unable to extend thumb has some flexion. Good cap refill. difficulty with opposition. Unable to view tendon even in bloodless field secondary to moderate healing in the area, - Neurological Cognition: Normal Orientation: AAOx4 [place] Coma Scale Eye Opening: Spontaneous [place] Coma Scale Verbal: Oriented [place] Coma Scale Motor: Obeys Commands [place] Coma Scale Total: 15 - Skin Skin Moisture: Dry Skin Color: Erythema, Other - see hand above for full discription Course - Re-evaluation Re-evalutation: 03/28/17 14:[address] Guo take a look at patient and he agrees that I should losely close the wound and place a thumb spike in place. He also agrees that patient should and needs to follow up with a hand surgeon. Patient has lost movement in the left thumb and we suspect that he may have lacerated the extensor tendon. We have discussed this in depth with the patient and informed him if he does not follow up with the hand surgeon he may lose use of he left thumb. - Vital Signs Vital signs: Temp Pulse Resp BP Pulse Ox 98.1 F 86 18 125/94 H 99 03/07/17 17:44 03/07/17 17:44 03/07/17 17:44 03/07/17 17:44 03/07/17 17:44 - Diagnostic Test Radiology reviewed: Reports reviewed - No acute findings Procedures - Immobilization Left Thumb Immobilizer type: Thumb spica - This was applied by the emergency room tech was rechecked by ne emergency room PA to be in good position with good cap refill in the nailbeds of the left hand. Patient tolerated this with no problem. Performed by: PCT Post-Proc Neuro Vasc Exam: Normal Alignment checked and good: Yes - Laceration/Wound Repair Left Thumb Wound length (cm): 1.8 Wound's Depth, Shape: Linear Laceration pre-procedure: Sterile drapes applied, Shur-Clens applied Anesthetic type: 1% Lidocaine Volume Anesthetic (mLs): 3 Wound explored: Clean Irrigated w/ Saline (mLs): 1,000 Wound Repaired With: Sutures Suture Size/Type: 4:0, Prolene Number of Sutures: 2 Layer Closure?: No Post-procedure wound care: Sterile dressing applied, Splint applied Post-procedure NV exam normal: Yes Complications: No Discharge - Discharge Clinical Impression: Laceration of extensor muscle, fascia and tendon of left thumb at wrist and hand level, initial encounter Laceration of left thumb Qualifiers: Encounter type: initial encounter Damage to nail status: without damage Foreign body presence: without foreign body Qualified Code(s): S61.012A - Laceration without foreign body of left thumb without damage to nail, initial encounter Condition: Stable Disposition: HOME, SELF-CARE Additional Instructions: Hand Laceration A laceration on the hand can present special problems. It may be difficult to keep the wound dry. Motion of the fingers can disturb the healing edges. Your work may involve exposure to damaging chemicals or water. Keep the wound clean and dry. If you can't keep the cut dry, undisturbed, and free of chemical exposure, please discuss this with the doctor. If any water or chemical gets onto the dressing, remove it, blot the wound dry, then apply a fresh bandage. Dressings should be changed every day. If you feel the stitches pulling as you move the hand, a splint or other form of protection is needed. If any signs of infection occur (swelling, redness, increasing tenderness, red streaks, tender lumps in the armpit, or fever), see the doctor immediately. You have been instructed to follow up with a hand specialist. I have provided you with the one personnel generalist manager. Contact his office as soon as possible as we discussed you may have a tendon that has been cut and you may lose the use of the thumb if not taken care of. Return to ER any concerns. Forms: Smoking Cessation Education Referrals: ARNIE MORENO PA-C [Primary Care Provider] - Follow up as needed BEN MORENO MD [ASSOCIATE] - Follow up as needed
[2017-03-07 17:47] VITALS: BP 125/94
== END 2017-03-07 17:47 | disposition home or self-care (01) ==
LOC: ER 14:48
PROC: 0HQGXZZ Repair Left Hand Skin, External Approach (ICD-10-PCS; principal; 2017-03-07)
DX: S61.012A Laceration without foreign body of left thumb without damage to nail, initial encounter (principal); W26.8XXA Contact with other sharp object(s), not elsewhere classified, initial encounter; I25.10 Atherosclerotic heart disease of native coronary artery without angina pectoris; Z88.3 Allergy status to other anti-infective agents; Z87.891 Personal history of nicotine dependence; I25.2 Old myocardial infarction; Z87.442 Personal history of urinary calculi
CPT/HCPCS: 99283; 73130; 12001; J3490

== ENCOUNTER 2017-03-13 13:46 | Emergency (ER) | payer OTHER ==
--- NOTE | 2017-03-13 14:44 | ER Document Report ---
ED General - General Chief Complaint: Chest Pain Stated Complaint: CHEST PAIN,SHORTNESS OF BREATH Time Seen by Provider: 03/13/17 14:39 Mode of Arrival: Ambulatory Information source: Patient Notes: Patient presents with palpitations. He states he has a history of SVT. He has had several ablations. He did recently have a medication change by his gastroenterologist. He states her since the medication change, that was about 2 weeks ago, he has palpitations most days. He states that he does drink Coke and Sweet tea. He denies any other type of caffeine use or stimulant use. Patient also has a history of 3 cardiac arrest requiring defibrillation. Patient states that otherwise he has not had any recent vomiting diarrhea or other significant symptoms. Patient states that his EKG looks okay he does not wish to stay in the emergency department and have any tests. TRAVEL OUTSIDE OF THE [place] IN LAST 30 DAYS: No - Related Data Allergies/Adverse Reactions: ciprofloxacin [From Cipro] Allergy (Severe, Verified 03/13/17 13:53) Shortness of Breath gadoteridol [From Prohance] Allergy (Severe, Verified 03/13/17 13:53) Shortness of Breath hyoscyamine sulfate [From Levsin] Allergy (Severe, Verified 03/13/17 13:53) Shortness of Breath Iodinated Contrast- Oral and IV Dye Allergy (Severe, Verified 03/13/17 13:53) metoclopramide HCl [From Reglan] Allergy (Severe, Verified 03/13/17 13:53) Shortness of Breath promethazine HCl [From Phenergan] Allergy (Severe, Verified 03/13/17 13:53) Shortness of Breath Past Medical History - Social History Smoking Status: Never Smoker Chew tobacco use (# tins/day): Yes Frequency of alcohol use: None Drug Abuse: Other - caffeine-pt counseled of need to stop this in light of hx of svt/cardiac arrest. Lives with: Family Family History: Reviewed & Not Pertinent, Arthritis, CAD, CVA, DM, Hyperlipidemia, Hypertension, Malignancy, Thyroid Disfunction - Past Medical History Cardiac Medical History: Reports: Hx Coronary Artery Disease - CARDIAC CATH/ LOOP RECORDER/ ABLATION X 2, Hx Heart Attack - X 3 Pulmonary Medical History: Reports: Hx Pneumonia Neurological Medical History: Reports: Hx Seizures - 2012- COMA FOR ONE WEEK- MEDICATION INDUCED Renal/ Medical History: Reports: Hx Kidney Stones - 23 stones. Denies: Hx Peritoneal Dialysis GI Medical History: Reports: Hx Hiatal Hernia Musculoskeltal Medical History: Reports Hx Arthritis, Reports Hx Musculoskeletal Deformity, Reports Hx Musculoskeletal Trauma Psychiatric Medical History: Reports: Hx Anxiety, Hx Post Traumatic Stress Disorder Past Surgical History: Reports: Hx Abdominal Surgery - hernia repair, Minal Fundoplication, Hx Appendectomy, Hx Cardiac Surgery - 2X ablation, Hx Inguinal Hernia - 2, Hx Orthopedic Surgery - R shoulder - Immunizations Immunizations up to date: Yes Hx Diphtheria, Pertussis, Tetanus Vaccination: Yes - 09/24/2015 Hx Pneumococcal Vaccination: 06/03/13 Review of Systems - Review of Systems Constitutional: denies: Chills, Fever Cardiovascular: Palpitations Respiratory: denies: Cough, Short of breath Gastrointestinal: denies: Diarrhea, Vomiting -: Yes All other systems reviewed and negative Physical Exam - Vital signs Vitals: Temp Pulse Resp BP Pulse Ox 97.5 F 87 20 116/76 100 03/13/17 13:49 03/13/17 13:49 03/13/17 13:49 03/13/17 13:49 03/13/17 13:49 Interpretation: Normal - General General appearance: Appears well, Alert - HEENT Head: Normocephalic, Atraumatic Eyes: Normal Pupils: PERRL - Respiratory Respiratory status: No respiratory distress Chest status: Nontender Breath sounds: Normal Chest palpation: Normal - Cardiovascular Rhythm: Regular Heart sounds: Normal auscultation Murmur: No - Abdominal Inspection: Normal Distension: No distension Bowel sounds: Normal Tenderness: Nontender Organomegaly: No organomegaly - Back Back: Normal, Nontender - Extremities General upper extremity: Normal inspection, Nontender, Normal color, Normal ROM , Normal temperature General lower extremity: Normal inspection, Nontender, Normal color, Normal ROM , Normal temperature, Normal weight bearing. No: Danuta's sign - Neurological Neuro grossly intact: Yes Cognition: Normal Orientation: AAOx4 [place] Coma Scale Eye Opening: Spontaneous [place] Coma Scale Verbal: Oriented [place] Coma Scale Motor: Obeys Commands [place] Coma Scale Total: 15 Speech: Normal Motor strength normal: LUE, RUE, LLE, RLE Sensory: Normal - Psychological Associated symptoms: Normal affect, Normal mood - Skin Skin Temperature: Warm Skin Moisture: Dry Skin Color: Normal Course - Vital Signs Vital signs: Temp Pulse Resp BP Pulse Ox 97.5 F 87 20 116/76 100 03/13/17 13:49 03/13/17 13:49 03/13/17 13:49 03/13/17 13:49 03/13/17 13:49 - Diagnostic Test Radiology reviewed: Image reviewed, Reports reviewed - EKG Interpretation by Me EKG shows normal: Sinus rhythm Rate: Normal Rhythm: NSR Lamont/QRS: No: Right axis deviation, Left axis deviation Discharge - Discharge Clinical Impression: Palpitations Condition: Stable Disposition: HOME, SELF-CARE Instructions: Paroxysmal Supraventricular Tachycardia ([facility]) Additional Instructions: Please follow-up with her gastroenterologist as soon as possible Forms: Return to Work
[2017-03-13 14:49] VITALS: BP 115/70
--- NOTE | 2017-03-13 18:57 | EKG REPORT ---
SEVERITY:- NORMAL ECG - SINUS RHYTHM : Confirmed by: Emiliano Lopez MD 13-Mar-2017 18:56:47
== END 2017-03-13 14:45 | disposition home or self-care (01) ==
LOC: ER 13:46
DX: R00.2 Palpitations (principal); R07.9 Chest pain, unspecified; R06.02 Shortness of breath; I47.1 Supraventricular tachycardia
CPT/HCPCS: 93005; 93010; 99285

== ENCOUNTER 2017-03-17 17:28 | Emergency (ER) | payer OTHER ==
[2017-03-17 17:54] VITALS: BP 128/84
[2017-03-17] MEDS ORDERED: SULFAMETHOXAZOLE/TRIMETHOPRIM 800-160 MG TABLET PO ONE (19:28)
[2017-03-17] MEDS ORDERED: ONDANSETRON 4 MG TAB.RAPDIS PO ONE (19:28)
[2017-03-17] MEDS ORDERED: CEPHALEXIN 500 MG CAPSULE PO ONE (19:28)
--- NOTE | 2017-03-17 19:36 | ER Document Report ---
ED Extremity Problem, Upper - General Chief Complaint: Wound Recheck Stated Complaint: LEFT THUMB INJURY Time Seen by Provider: 03/17/17 19:15 Mode of Arrival: Ambulatory Information source: Patient Notes: 31-year-old male presents to ED for complaint of wound dehiscence to the left thumb that he had sutures in 3 weeks ago. He was also seen on 1011 for chest pain. He states that the provider at that time put into "box sutures ". He complains of pain and redness to the area. There is no fever to the area there is mild redness. The wound is open but no drainage noted TRAVEL OUTSIDE OF THE [place] IN LAST 30 DAYS: No - HPI Patient complains to provider of: Pain, Left, Hand Onset: Other - 03/07/17 Recent injury: Yes Quality of pain: Burning - States it open to begin 10 burning Severity of pain: Moderate Pain Level: 4 Context: Other - Redness to lacerations. Patient states he cannot flex his thumb the laceration is to the dorsal surface of the thumb Associated symptoms: Other - Erythema Exacerbated by: Movement Relieved by: Nothing Similar symptoms previously: Yes Recently seen / treated by doctor: Yes - Related Data Allergies/Adverse Reactions: ciprofloxacin [From Cipro] Allergy (Severe, Verified 03/17/17 17:51) Shortness of Breath gadoteridol [From Prohance] Allergy (Severe, Verified 03/17/17 17:51) Shortness of Breath hyoscyamine sulfate [From Levsin] Allergy (Severe, Verified 03/17/17 17:51) Shortness of Breath Iodinated Contrast- Oral and IV Dye Allergy (Severe, Verified 03/17/17 17:51) metoclopramide HCl [From Reglan] Allergy (Severe, Verified 03/17/17 17:51) Shortness of Breath promethazine HCl [From Phenergan] Allergy (Severe, Verified 03/17/17 17:51) Shortness of Breath Past Medical History - General Information source: Patient - Social History Smoking Status: Never Smoker Cigarette use (# per day): No Chew tobacco use (# tins/day): Yes Smoking Education Provided: No Frequency of alcohol use: None Drug Abuse: None Lives with: Family Family History: Arthritis, CAD, CVA, DM, Hyperlipidemia, Hypertension, Malignancy, Thyroid Disfunction Patient has suicidal ideation: No Patient has homicidal ideation: No - Past Medical History Cardiac Medical History: Reports: Hx Coronary Artery Disease - CARDIAC CATH/ LOOP RECORDER/ ABLATION X 2, Hx Heart Attack - X 3 Pulmonary Medical History: Reports: Hx Pneumonia Neurological Medical History: Reports: Hx Seizures - [facility]2012- COMA FOR ONE WEEK- MEDICATION INDUCED Endocrine Medical History: Reports: None Renal/ Medical History: Reports: Hx Kidney Stones - 23 stones Malignancy Medical History: Reports None GI Medical History: Reports: Hx Gastritis, Hx Gastroesophageal Reflux Disease, Hx Hiatal Hernia, Hx Endoscopy, Other - Rajan's esophagitis Musculoskeltal Medical History: Reports Hx Arthritis, Reports Hx Musculoskeletal Deformity, Reports Hx Musculoskeletal Trauma Skin Medical History: Reports Hx Cellulitis Psychiatric Medical History: Reports: Hx Anxiety, Hx Post Traumatic Stress Disorder Infectious Medical History: Reports: None Past Surgical History: Reports: Hx Abdominal Surgery - hernia repair, Minal Fundoplication, partial esophagectomy, Hx Appendectomy, Hx Cardiac Surgery - 2X ablation, Hx Inguinal Hernia - 2, Hx Orthopedic Surgery - R shoulder, Other - Immunizations Immunizations up to date: Yes Hx Diphtheria, Pertussis, Tetanus Vaccination: Yes - 09/24/2015 Hx Pneumococcal Vaccination: 06/03/13 Review of Systems - Review of Systems Constitutional: No symptoms reported EENT: No symptoms reported Cardiovascular: No symptoms reported Respiratory: No symptoms reported Gastrointestinal: No symptoms reported Genitourinary: No symptoms reported Male Genitourinary: No symptoms reported Musculoskeletal: No symptoms reported Skin: Change in color - Mild pinkness to area surrounding the laceration to his left dorsal thumb Hematologic/Lymphatic: No symptoms reported Neurological/Psychological: No symptoms reported -: Yes All other systems reviewed and negative Physical Exam - Vital signs Vitals: Temp Pulse Resp BP Pulse Ox 98.7 F 85 12 128/84 H 97 03/17/17 17:51 03/17/17 17:51 03/17/17 17:51 03/17/17 17:51 03/17/17 17:51 Interpretation: Normal - General General appearance: Appears well, Alert - HEENT Head: Normocephalic, Atraumatic Eyes: Normal Pupils: PERRL - Respiratory Respiratory status: No respiratory distress Chest status: Nontender Breath sounds: Normal Chest palpation: Normal - Cardiovascular Rhythm: Regular Heart sounds: Normal auscultation Murmur: No - Abdominal Inspection: Normal Distension: No distension Bowel sounds: Normal Tenderness: Nontender Organomegaly: No organomegaly - Back Back: Normal, Nontender - Extremities General upper extremity: Normal temperature General lower extremity: Normal inspection, Nontender, Normal color, Normal ROM , Normal temperature, Normal weight bearing. No: Danuta's sign Hand: Tender, No evidence of human bite, No evidence of FB, Swelling, Other - Mild pinkness surrounding the laceration to the dorsal aspect of the left thumb. Patient states he cannot flex his thumb but is able to push against me when I flex his thumb. No: Abrasion, Deformity, Dislocation, Ecchymosis, Instability, Laceration - Neurological Neuro grossly intact: Yes Cognition: Normal Orientation: AAOx4 Monroe Coma Scale Eye Opening: Spontaneous Monroe Coma Scale Verbal: Oriented Shena Coma Scale Motor: Obeys Commands Shena Coma Scale Total: 15 Speech: Normal Motor strength normal: LUE, RUE, LLE, RLE Sensory: Normal - Psychological Associated symptoms: Normal affect, Normal mood - Skin Skin Temperature: Warm Skin Moisture: Dry Skin Color: Normal Skin irregularity: Erythema - Mild pinkness surrounding the laceration, Laceration - Sensation to left dorsal thumb healing by second intention with mild weakness surrounding the laceration Irregularity with: Tenderness. negative: Warmth Course - Re-evaluation Re-evalutation: 03/17/17 21:06 Patient was treated with Keflex and Septra and Zofran for his mild cellulitis surrounding the healing laceration to his left dorsal thumb. Patient states he is not able to flex his thumb but he is able to push against my finger when I try to flex his thumb. Patient has an appointment with Dr. Birmingham at 8:30 in the morning he was encouraged to please keep this appointment. Prescription was written for Septra and Keflex. - Vital Signs Vital signs: Temp Pulse Resp BP Pulse Ox 98.7 F 85 12 128/84 H 97 03/17/17 17:51 03/17/17 17:51 03/17/17 17:51 03/17/17 17:51 03/17/17 17:51 Discharge - Discharge Clinical Impression: Recheck left hand wound, Cellulitis left hand wound Condition: Stable Disposition: HOME, SELF-CARE Additional Instructions: You were seen today for recheck of the laceration to your left thumb. CELLULITIS: You have an infection of your skin and underlying soft tissues called cellulitis. This is due to bacteria, which can enter through any break in the skin, or even through an irritated hair follicle. Untreated, cellulitis will usually worsen. Antibiotics are required. Usually, warm packs or warm soaks, and elevation of the infected area are recommended. You should start getting better within 24 to 36 hours. Most infections respond quickly to the right medication. Follow-up care is important, however, to check for abscess (boil) formation, unsuspected foreign body, or resistant infection. If you develop fever, chills, or if the area of infection is becoming rapidly more swollen or painful, call the doctor at once TRIMETHOPRIM-SULFA: You have been given a prescription for trimethoprim-sulfa (TMS, Septra, Bactrim). This is a combination antibiotic of the sulfa class, often used for urinary tract infections, middle ear infections, bronchitis, shigella intestinal infection, and Pneumocystis pneumonia. TMS is usually well-tolerated. Occasional side effects include nausea and decreased appetite. Septra is not recommended for infants less than two months of age. Do not take this medication if you have experienced severe side effects or allergy to sulfa medicine. You should stop this medicine at once and contact your physician if you develop any rash, joint pain, shortness of breath, bruising, or jaundice ( yellow color in the skin), or if you develop any other new or unusual symptoms. Cephalexin The antibiotic you've been prescribed is a member of the cephalosporin class. This type of antibiotic covers a wide variety of infections, including those of the skin, lungs, and urinary tract. It's useful for staph infections. This antibiotic is slightly similar to the penicillin family. In rare cases , a person who is allergic to penicillin will also be allergic to this medication. If you have had a severe allergic reaction to penicillin, and have not taken this antibiotic since that time, notify your doctor. Antibiotics which cover many germs ("broad spectrum" antibiotics) are more likely to cause diarrhea or "yeast" infections. Women prone to vaginal yeast problems may suffer an attack after taking this antibiotic. In infants, oral thrush (white spots "stuck" on the cheek) or yeast diaper rash may result. See your doctor if these problems occur. Call at once if you develop itching, hives , shortness of breath, or lightheadedness. Antibiotic Ointment Protection Your wounds are such that dressing them is not practical or optional. After cleansing, you should apply a thin coating of antibiotic ointment ( Bacitracin, not Neosporin) to the wounds at least three times daily. This lessens infection risk, and may decrease the amount of scarring. Use a q-tip or dull butter knife, not your finger, to apply this ointment. Any debris or ooze which builds up in the ointment should be gently rubbed off with a sterile gauze pad. Harder crusting may need to be gently scrubbed off with a clean wash cloth with soap and warm water, perhaps applying a warm, wet wash cloth to the wound for ten minutes first. Development of redness, severe itching, or blistering may mean allergy to the ointment. See the doctor. Antinausea Medication You have been given a medication to suppress nausea and vomiting. This type of medication can be given as a shot, pill, or suppository. It will usually last for many hours. Pills and shots usually last six to eight hours, suppositories last about 12 hours. For the typical illness, only one or two doses of the medication may be necessary. Mild lightheadedness may occur. This type of medicine can cause drowsiness. Do not drive or operate dangerous machinery while under its influence. Do not mix with alcohol. See your doctor at once if you have muscle spasms or tightness, or uncontrollable motions (particularly of the neck, mouth, or jaw). Persistent vomiting or severe lightheadedness should also be evaluated by the physician. FOLLOW-UP CARE: If you have been referred to a physician for follow-up care, call the physician s office for an appointment as you were instructed or within the next two days. If you experience worsening or a significant change in your symptoms, notify the physician immediately or return to the Emergency Department at any time for re-evaluation. Be sure to keep your appointment with Dr. Birmingham at 830 tomorrow morning. is the hand surgeon he is the best person for treating this hand injury. At this time he states you cannot bend your thumb. The injury is to the dorsal surface of the thumb which should not affect flexion of your thumb. Have him reassess this when you see him in the morning. Prescriptions: Cephalexin Monohydrate [Keflex 500 mg Capsule] 500 mg PO Q6H 5 Days capsule Sulfamethoxazole/Trimethoprim [Septra-Ds 800-160 mg Tablet] 1 tab PO BID #14 tablet Forms: Smoking Cessation Education, Elevated Blood Pressure Referrals: ARNIE MORENO PA-C [Primary Care Provider] - Follow up as needed
== END 2017-03-17 19:59 | disposition home or self-care (01) ==
LOC: ER 17:28
DX: L03.012 Cellulitis of left finger (principal); I25.10 Atherosclerotic heart disease of native coronary artery without angina pectoris; I25.2 Old myocardial infarction; Z87.442 Personal history of urinary calculi
CPT/HCPCS: 99282; S0119

== ENCOUNTER 2017-03-21 12:07 | Inpatient (IN) | payer OTHER ==
--- NOTE | 2017-03-21 12:54 | ER Document Report ---
ED Medical Screen (RME) - General Chief Complaint: Skin Problem Stated Complaint: SKIN PROBLEM Time Seen by Provider: 03/21/17 12:52 TRAVEL OUTSIDE OF THE [place] IN LAST 30 DAYS: No - HPI Notes: 03/21/17 12:53 Worsening infection on clindamycin follows up with Dr. Birmingham - Related Data Allergies/Adverse Reactions: ciprofloxacin [From Cipro] Allergy (Severe, Verified 03/21/17 12:13) Shortness of Breath gadoteridol [From Prohance] Allergy (Severe, Verified 03/21/17 12:13) Shortness of Breath hyoscyamine sulfate [From Levsin] Allergy (Severe, Verified 03/21/17 12:13) Shortness of Breath Iodinated Contrast- Oral and IV Dye Allergy (Severe, Verified 03/21/17 12:13) metoclopramide HCl [From Reglan] Allergy (Severe, Verified 03/21/17 12:13) Shortness of Breath promethazine HCl [From Phenergan] Allergy (Severe, Verified 03/21/17 12:13) Shortness of Breath Past Medical History - Past Medical History Cardiac Medical History: Reports: Hx Coronary Artery Disease - CARDIAC CATH/ LOOP RECORDER/ ABLATION X 2, Hx Heart Attack - X 3 Pulmonary Medical History: Reports: Hx Pneumonia Neurological Medical History: Reports: Hx Seizures - 2012- COMA FOR ONE WEEK- MEDICATION INDUCED Renal/ Medical History: Reports: Hx Kidney Stones - 23 stones. Denies: Hx Peritoneal Dialysis GI Medical History: Reports: Hx Gastritis, Hx Gastroesophageal Reflux Disease, Hx Hiatal Hernia, Hx Endoscopy Musculoskeltal Medical History: Reports Hx Arthritis, Reports Hx Musculoskeletal Deformity, Reports Hx Musculoskeletal Trauma Skin Medical History: Reports Hx Cellulitis Psychiatric Medical History: Reports: Hx Anxiety, Hx Post Traumatic Stress Disorder Past Surgical History: Reports: Hx Abdominal Surgery - hernia repair, Minal Fundoplication, partial esophagectomy, Hx Appendectomy, Hx Cardiac Surgery - 2X ablation, Hx Inguinal Hernia - 2, Hx Orthopedic Surgery - R shoulder, Other - Immunizations Immunizations up to date: Yes Hx Diphtheria, Pertussis, Tetanus Vaccination: Yes - 09/24/2015 History of Influenza Vaccine for 03/2017 - 08/2017 Season: No Review of Systems - Review of Systems Skin: Other - Cellulitis Physical Exam - Vital signs Vitals: Temp Pulse BP Pulse Ox 98.6 F 128 H 131/95 H 100 03/21/17 12:12 03/21/17 12:12 03/21/17 12:12 03/21/17 12:12 - Extremities General upper extremity: Normal inspection - Redness erythema on the dorsum of the hand wound to the left thumb. Blisters along the wound edges. Course - Re-evaluation Re-evalutation: 03/21/17 12:53 Worsening hand infection patient states he is Dr. Birmingham. - Vital Signs Vital signs: Temp Pulse Resp BP Pulse Ox 98.6 F 128 H 131/95 H 100 03/21/17 12:12 03/21/17 12:12 03/21/17 12:12 03/21/17 12:12
[2017-03-21] MEDS: NORMAL SALINE 1000 ML 1,000 ML IV PRN ×2 (13:17→13:18)
[2017-03-21] MEDS ORDERED: VANCOMYCIN HCL INJ 1000 MG VIAL IV ONE (13:39)
[2017-03-21] MEDS ORDERED: PIPERACILLIN/TAZOBACTAM 3.375 GM VIAL IV ONE (13:39)
[2017-03-21 13:48] LABS: ABSOLUTE BASOPHILS # (AUTO) 0.1 10^3/uL (0.0-0.2); ABSOLUTE EOSINOPHILS # (AUTO) 0.1 10^3/uL (0.0-0.6); ABSOLUTE LYMPHOCYTES (AUTO) 1.4 10^3/uL (0.5-4.7); ABSOLUTE MONOCYTES (AUTO) 0.4 10^3/uL (0.1-1.4); ABSOLUTE NEUT (AUTO) 5.5 10^3/uL (1.7-8.2); BASOPHILS % (AUTO) 0.9 % (0-2); EOSINOPHILS % (AUTO) 1.2 % (0-6); HEMATOCRIT 40.5 % (37.9-51.0); HEMOGLOBIN 14.4 g/dL (13.5-17.0); HGB HCT DIFFERENCE 2.7; LYMPHOCYTES % (AUTO) 19.2 % (13-45); MEAN CORPUSCULAR HEMOGLOBIN 30.4 pg (27.0-33.4); MEAN CORPUSCULAR HGB CONC 35.5 g/dL (32.0-36.0); MEAN CORPUSCULAR VOLUME 86 fl (80-97); MONOCYTES % (AUTO) 5.4 % (3-13); RED BLOOD COUNT 4.74 10^6/uL (4.35-5.55); RED CELL DISTRIBUTION WIDTH 13.5 % (11.5-14.0); SEGMENTED NEUTROPHILS % (AUTO) 73.3 % (42-78); WHITE BLOOD COUNT 7.5 10^3/uL (4.0-10.5)
[2017-03-21] MEDS ORDERED: MORPHINE SULFATE 10 MG/ML INJ IV ONE (13:50)
[2017-03-21 14:07] LABS: ANION GAP 15 (5-19); BLOOD UREA NITROGEN 11 mg/dL (7-20); CALCIUM 9.8 mg/dL (8.4-10.2); CARBON DIOXIDE 29 mmol/L (22-30); CHLORIDE 101 mmol/L (98-107); CREATINE KINASE 92 U/L (55-170); CREATININE RESULT 1.08 mg/dL (0.52-1.25); GLUCOSE 84 mg/dL (75-110); POTASSIUM 4.4 mmol/L (3.6-5.0); SODIUM 144.6 mmol/L (137-145)
--- NOTE | 2017-03-21 14:31 | ER Document Report ---
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 Patient had sutures placed for thumb injury notes since then the area has gotten worse. Patient had been seen by Dr. phillips a few days prior and only had one blister at that time, was told to see a structural steel ironworker but did not follow-up. Patient's hand is now erythematous and furthering blisters TRAVEL OUTSIDE OF THE [place] IN LAST 30 DAYS: No - HPI Onset: Other Onset/Duration: Persistent, Worse Quality of pain: Sharp Severity: Mild Pain Level: 2 Associated symptoms: Other Exacerbated by: Movement Relieved by: Denies Similar symptoms previously: Yes Recently seen / treated by doctor: Yes - Related Data Allergies/Adverse Reactions: ciprofloxacin [From Cipro] Allergy (Severe, Verified 03/21/17 12:13) Shortness of Breath gadoteridol [From Prohance] Allergy (Severe, Verified 03/21/17 12:13) Shortness of Breath hyoscyamine sulfate [From Levsin] Allergy (Severe, Verified 03/21/17 12:13) Shortness of Breath Iodinated Contrast- Oral and IV Dye Allergy (Severe, Verified 03/21/17 12:13) metoclopramide HCl [From Reglan] Allergy (Severe, Verified 03/21/17 12:13) Shortness of Breath promethazine HCl [From Phenergan] Allergy (Severe, Verified 03/21/17 12:13) Shortness of Breath Past Medical History - Social History Smoking Status: Never Smoker Cigarette use (# per day): No Chew tobacco use (# tins/day): Yes - 1 tin/day Smoking Education Provided: No Frequency of alcohol use: Occasional Drug Abuse: None Family History: Arthritis, CAD, CVA, DM, Hyperlipidemia, Hypertension, Malignancy, Thyroid Disfunction - Past Medical History Cardiac Medical History: Reports: Hx Coronary Artery Disease - CARDIAC CATH/ LOOP RECORDER/ ABLATION X 2, Hx Heart Attack - X 3 Pulmonary Medical History: Reports: Hx Pneumonia Neurological Medical History: Reports: Hx Seizures - 2012- COMA FOR ONE WEEK- MEDICATION INDUCED Renal/ Medical History: Reports: Hx Kidney Stones - 23 stones. Denies: Hx Peritoneal Dialysis GI Medical History: Reports: Hx Gastritis, Hx Gastroesophageal Reflux Disease, Hx Hiatal Hernia, Hx Endoscopy Musculoskeltal Medical History: Reports Hx Arthritis, Reports Hx Musculoskeletal Deformity, Reports Hx Musculoskeletal Trauma Skin Medical History: Reports Hx Cellulitis Psychiatric Medical History: Reports: Hx Anxiety, Hx Post Traumatic Stress Disorder Past Surgical History: Reports: Hx Abdominal Surgery - hernia repair, Minal Fundoplication, partial esophagectomy, Hx Appendectomy, Hx Cardiac Surgery - 2X ablation, Hx Inguinal Hernia - 2, Hx Orthopedic Surgery - R shoulder, Other - Immunizations Immunizations up to date: Yes Hx Diphtheria, Pertussis, Tetanus Vaccination: Yes - 09/24/2015 Hx Pneumococcal Vaccination: 06/03/13 Review of Systems - Review of Systems Notes: REVIEW OF SYSTEMS: CONSTITUTIONAL : Denies fever, chills, or sweats. Denies recent illness. EENT: Denies eye, ear, throat, or mouth pain or symptoms. Denies nasal or sinus congestion or discharge. Denies throat, tongue, or mouth swelling or difficulty swallowing. CARDIOVASCULAR: Denies chest pain. Denies palpitations or racing or irregular heart beat. Denies ankle edema. RESPIRATORY: Denies cough, cold, or chest congestion. Denies shortness of breath, difficulty breathing, or wheezing. GASTROINTESTINAL: Denies abdominal pain or distention. Denies nausea, vomiting , or diarrhea. Denies blood in vomitus, stools, or per rectum. Denies black, tarry stools. Denies constipation. GENITOURINARY: Denies difficulty urinating, painful urination, burning, frequency, blood in urine, or discharge. MUSCULOSKELETAL: Denies back or neck pain or stiffness. Denies joint pain or swelling. SKIN: Left hand redness blistering HEMATOLOGIC : Denies easy bruising or bleeding. LYMPHATIC: Denies swollen, enlarged glands. NEUROLOGICAL: Denies confusion or altered mental status. Denies passing out or loss of consciousness. Denies dizziness or lightheadedness. Denies headache. Denies weakness or paralysis or loss of use of either side. Denies problems with gait or speech. Denies sensory loss, numbness, or tingling. Denies seizures. PSYCHIATRIC: Denies anxiety or stress. Denies depression, suicidal ideation, or homicidal ideation. ALL OTHER SYSTEMS REVIEWED AND NEGATIVE. Dictation was performed using Dragon voice recognition software PHYSICAL EXAMINATION: GENERAL: Well-appearing, well-nourished and in no acute distress. HEAD: Atraumatic, normocephalic. EYES: Pupils equal round and reactive to light, extraocular movements intact, sclera anicteric, conjunctiva are normal. ENT: Nares patent, oropharynx clear without exudates. Moist mucous membranes. NECK: Normal range of motion, supple without lymphadenopathy LUNGS: Breath sounds clear to auscultation bilaterally and equal. No wheezes rales or rhonchi. HEART: Regular rate and rhythm without murmurs ABDOMEN: Soft, nontender, nondistended abdomen. No guarding, no rebound. No masses appreciated. Musculoskeletal: Normal range of motion, no pitting or edema. No cyanosis. NEUROLOGICAL: Cranial nerves grossly intact. Normal speech, normal gait. Normal sensory, motor exams PSYCH: Normal mood, normal affect. SKIN: Laceration has dehisced somewhat, there is cellulitis of the left hand with blistering Physical Exam - Vital signs Vitals: Temp Pulse BP Pulse Ox 98.6 F 128 H 131/95 H 100 03/21/17 12:12 03/21/17 12:12 03/21/17 12:12 03/21/17 12:12 Course - Re-evaluation Re-evalutation: 03/21/17 14:46 Patient's presentation is consistent with cellulitis with blistering as well. This may be secondary to pemphigus vulgaris, but I believe the cellulitis is of more concern. Patient is noted to be tachycardic on arrival no white count elevation is noted. I did speak with Dr. givens who requests hospitalist admission 03/21/17 14:47 Patient will be admitted given that oral clindamycin has not improved his symptoms - Vital Signs Vital signs: Temp Pulse Resp BP Pulse Ox 98.6 F 128 H 131/95 H 100 03/21/17 12:12 03/21/17 12:12 03/21/17 12:12 03/21/17 12:12 - Laboratory Result Diagrams: 03/21/17 13:20 03/21/17 13:20 Discharge - Discharge Clinical Impression: Cellulitis of left hand Condition: Stable Admitting Provider: Hospitalist Unit Admitted: Medical Floor Referrals: ARNIE MORENO PA-C [Primary Care Provider] - Follow up as needed
[2017-03-21 14:52] LABS: APPEARANCE,URINE CLEAR; BILIRUBIN,URINE NEGATIVE (NEGATIVE); GLUCOSE, URINE NEGATIVE (NEGATIVE); KETONES,URINE NEGATIVE (NEGATIVE); LEUKOCYTE ESTERASE,URINE NEGATIVE (NEGATIVE); NITRITE,URINE NEGATIVE (NEGATIVE); PROTEIN,URINE NEGATIVE (NEGATIVE); URINE SPECIFIC GRAVITY 1.006; UROBILINOGEN,URINE NEGATIVE mg/dL (<2.0)
[2017-03-21 15:05] LABS: URINE BARBITURATES SCREEN NEGATIVE; URINE METHADONE SCREEN NEGATIVE; URINE OPIATES LOW NEGATIVE; URINE PHENCYCLIDINE SCREEN NEGATIVE
[2017-03-21] MEDS ORDERED: VANCOMYCIN HCL 0 MG in DEXTROSE 5%-WATER 250 ML IV NR (15:45)
[2017-03-21] MEDS ORDERED: METHYLPREDNISOLONE SOD SUCC 500 MG in DEXTROSE 5%-WATER 50 ML IV SCH (15:45)
[2017-03-21] MEDS ORDERED: HYDROMORPHONE HCL INJ/PF 2 MG/ML AMPULE IV ONE (16:17)
[2017-03-21] MEDS ORDERED: METHYLPREDNISOLONE SOD SUCC 500 MG in NORMAL SALINE 50 ML IV ONE (17:30)
[2017-03-21] MEDS ORDERED: PIPERACILLIN SODIUM/TAZOBACTAM 3.375 GM in NORMAL SALINE 100 ML IV SCH (18:00)
--- NOTE | 2017-03-21 18:35 | PDOC H&P ---
History of Present Illness Admission Date/PCP: ARNIE MORENO PA-C History of Present Illness: COREY LEYVA is a 31 year old white male with a past medical history of pemphigus vulgaris who presents to the service with complaints of left hand swelling and blistering. The patient his thumb on a box stamper at the end of February. He came into the emergency room and laceration was sutured. He been coming back and forth to the emergency room for wound checks. I believe he was being followed as an outpatient by orthopedics for this. At the time that he last saw Dr. phillips he only had one blister at that time. Over the last few days the redness in his hand has gotten worse and he is had increased number of blisters develop. The patient moved here from [place] and was seeing a parachute inspector there. He is not established with a parachute inspector here in [place]. The patient states that his hand is exquisitely painful and that it is difficult for him to even make a fist. He states that he has had a couple of other flares of his pemphigus in the past but that there is never been this severe. He had one flare on his lower extremity after a recluse spider bite and a flare on his arm after the same. It seems as though he can get minor nicks and scrapes without inciting of flareup. However, whenever something deeper happens this seems to cause his pemphigus flare. In the past he thinks he may have been on steroids but mostly he recalls being treated with antibiotics. Down in the emergency room the patient was given a dose of vancomycin and Zosyn. White blood count was normal at 7.5. The medicine service was asked to admit the patient and treat his hand cellulitis. The ER did reach out to orthopedics but they declined admission. Past Medical History Cardiac Medical History: Reports: Coronary Artery Disease - CARDIAC CATH/ LOOP RECORDER/ ABLATION X 2, Other - SVT status post ablation multiple times. Pulmonary Medical History: Reports: Pneumonia Neurological Medical History: Reports: Seizures - 2012- COMA FOR ONE WEEK - MEDICATION INDUCED GI Medical History: Reports: Gastroesophageal Reflux Disease, Hiatal Hernia Musculoskeltal Medical History: Reports: Arthritis Psychiatric Medical History: Reports: Post Traumatic Stress Disorder Hematology: Reports: Anemia Past Surgical History Past Surgical History: Insertion and removal of the spinal stimulator. Bilateral inguinal hernia repairs. Appendectomy. Ablation for SVT. Past Surgical History: Reports: Appendectomy, Orthopedic Surgery - R shoulder, Other - Minal's fundoplication with esophagectomy. Social History Information Source: Patient Lives with: Spouse/Significant other Smoking Status: Never Smoker Frequency of Alcohol Use: Rare - A couple of beers twice a month Hx Recreational Drug Use: No Drugs: None Hx Prescription Drug Abuse: No Family History Family History: Arthritis, CAD, CVA, DM, Hyperlipidemia, Hypertension, Malignancy, Thyroid Disfunction Parental Family History Reviewed: Yes Children Family History Reviewed: Yes Sibling(s) Family History Reviewed.: Yes Medication/Allergy Home Medications: Pindolol 20 mg PO QPM 03/21/17 Allergies/Adverse Reactions: ciprofloxacin [From Cipro] Allergy (Severe, Verified 03/21/17 12:13) Shortness of Breath gadoteridol [From Prohance] Allergy (Severe, Verified 03/21/17 12:13) Shortness of Breath hyoscyamine sulfate [From Levsin] Allergy (Severe, Verified 03/21/17 12:13) Shortness of Breath Iodinated Contrast- Oral and IV Dye Allergy (Severe, Verified 03/21/17 12:13) metoclopramide HCl [From Reglan] Allergy (Severe, Verified 03/21/17 12:13) Shortness of Breath promethazine HCl [From Phenergan] Allergy (Severe, Verified 03/21/17 12:13) Shortness of Breath Review of Systems Review of Systems: As per HPI. In addition, the patient denies any chest pain, shortness of breath , nausea, vomiting, blood in the stool, blood in the urine, coughing up blood or throwing up blood, diarrhea constipation, decreased appetite, weight changes , endocrine issues such as thyroid dysfunction, arthritic changes. He does however admit to having chills over the last couple days. Physical Exam Vital Signs: Temp Pulse Resp BP Pulse Ox 98.6 F 128 H 131/95 H 100 03/21/17 12:12 03/21/17 12:12 03/21/17 12:12 03/21/17 12:12 Intake & Output 03/20/17 03/21/17 03/22/17 06:59 06:59 06:59 Weight 66 kg GENERAL: This is a well-developed well-nourished appearing white male. I do note that he has a very low BMI of 15 recorded in the chart. The patient does not look this small. HEENT: Normocephalic atraumatic. Trachea is midline. No scleral icterus. Poor dentition with multiple rotten teeth. Moist mucous membranes. HEART: [Regular rate and rhythm. No murmurs, rubs or gallops.] LUNGS: [Clear to auscultation bilaterally with equal rise and fall of the chest. ] ABDOMEN: [Soft, nontender, nondistended with normoactive bowel sounds] EXTREMETIES: [No clubbing, cyanosis or edema with the exception of the left hand which is swollen. 2+ peripheral pulses bilaterally. Strength is 5 out of 5 in the lower extremities bilaterally and in the right upper extremity. Strength testing was deferred on the left side secondary to pain.] NEURO: [Awake, alert and oriented 3. Cranial nerves II through XII are specifically intact. Speech is fluent. Skin: The patient's left hand appears erythematous with multiple blisters across the dorsum of the hand his left thumb has healed wound. There is no purulence or drainage from the site] Results Laboratory Results: 03/21/17 13:20 03/21/17 13:20 03/21/17 03/21/17 03/21/17 13:20 13:20 14:15 WBC 7.5 RBC 4.74 Hgb 14.4 Hct 40.5 MCV 86 MCH 30.4 MCHC 35.5 RDW 13.5 Plt Count 304 Seg Neutrophils % 73.3 Lymphocytes % 19.2 Monocytes % 5.4 Eosinophils % 1.2 Basophils % 0.9 Absolute Neutrophils 5.5 Absolute Lymphocytes 1.4 Absolute Monocytes 0.4 Absolute Eosinophils 0.1 Absolute Basophils 0.1 Sodium 144.6 Potassium 4.4 Chloride 101 Carbon Dioxide 29 Anion Gap 15 BUN 11 Creatinine 1.08 Est GFR ( Amer) > 60 Est GFR (Non-Af Amer) > 60 Glucose 84 Calcium 9.8 Urine Color STRAW Urine Appearance CLEAR Urine pH 6.0 Ur Specific [place] 1.006 Urine Protein NEGATIVE Urine Glucose (UA) NEGATIVE Urine Ketones NEGATIVE Urine Blood NEGATIVE Urine Nitrite NEGATIVE Ur Leukocyte Esterase NEGATIVE Urine WBC (Auto) 0 03/21/17 13:20 Creatine Kinase 92 Assessment & Plan - Diagnosis (1) Pemphigus vulgaris Plan: I suspect the patient's is having this flare secondary to the wound on his thumb. For certain his hand is red however I think this is a direct result of the flare and not necessarily cellulitis. The patient's white blood cell count is normal and he is not been on antibiotics recently. I am going to treat him with 500 mg of Solu-Medrol daily for the next 3 days. Hopefully this will settle things down. He received a dose of vancomycin and Zosyn down in the emergency room. I am going to leave that in place for now in case there is a true cellulitis that we are overlooking. I will reevaluate this again tomorrow. Pain control will be offered with as needed oxycodone and Dilaudid as needed. The patient was encouraged to establish with a parachute inspector here in town. Once we have completed a 3 days of Solu-Medrol he will need a prednisone taper most likely. (2) SVT (supraventricular tachycardia) Plan: Continue beta-chyna from home. (3) Acute pain Plan: Management as above. (4) Cellulitis of left hand Plan: Management as per #1. - Time Time Spent: 30 to 50 Minutes Anticipated discharge: Home Within: within 36 hours
[2017-03-21] MEDS: OXYCODONE HCL IR 5 MG TABLET PO PRN (19:53)
[2017-03-21] MEDS ORDERED: DIPHENHYDRAMINE HCL 25 MG CAPSULE PO PRN ×2 (20:46→21:06)
[2017-03-21] MEDS ORDERED: DIPHENHYDRAMINE HCL 25 MG/10 ML UDC PO PRN (21:04)
[2017-03-21] MEDS: ONDANSETRON HCL INJ/PF 4 MG/2 ML SDV IV PRN (21:20)
[2017-03-21] MEDS ORDERED: DIPHENHYDRAMINE HCL 50 MG/ML VIAL ONE (21:24)
[2017-03-21] MEDS ORDERED: FAMOTIDINE INJ/PF 20 MG/2 ML SDV IV ONE ×2 (21:29→21:33)
[2017-03-21] MEDS ORDERED: EPINEPHRINE INJ/PF 1 MG/1 ML AMPULE IM ONE (21:32)
[2017-03-21] MEDS ORDERED: DIPHENHYDRAMINE HCL 50 MG/ML VIAL IV ONE (21:33)
[2017-03-21] MEDS ORDERED: METHYLPREDNISOLONE INJ 125 MG/2 ML SDV IV ONE (21:43)
[2017-03-21] MEDS ORDERED: LORAZEPAM INJ 2 MG/1 ML VIAL IV ONE (21:56)
[2017-03-21] MEDS: FAMOTIDINE INJ/PF 20 MG/2 ML SDV IV SCH (22:00)
--- NOTE | 2017-03-21 22:03 | PDOC PROGRESS REPORT ---
Subjective Progress Note for:: 03/21/17 Subjective:: Patient began having difficulty breathing, localized itching, and neck redness with the initial infusion of Zosyn. Infusion was stopped. Patient was given Benadryl. Patient currently reports difficulty breathing. Physical Exam Vital Signs: Temp Pulse Resp BP Pulse Ox 97.4 F 88 15 96/74 L 100 03/21/17 19:22 03/21/17 19:22 03/21/17 19:22 03/21/17 19:22 03/21/17 19:22 Intake & Output 03/20/17 03/21/17 03/22/17 06:59 06:59 06:59 Weight 71.5 kg Exam: General: Moderate to severe respiratory distress, flushed, HEENT: AT/NC, PERRL, EOMI, oropharynx is moist, pink, no scleral icterus, no conjunctival injection, poor dentition Neck: No JVD, trachea midline, no stridor Chest: Difficulty moving air, no overt wheezing CV: Tachycardic, regular rate and rhythm, normal S1 and S2, no murmur, rub, or gallop Abdomen: Soft, nontender to palpation, nondistended, active bowel sounds; no rebound, rigidity, or guarding Extremities: No cyanosis, clubbing or edema Neuro: Cranial nerves II through XII are grossly intact without focal deficits; awake alert and oriented x3 Psych: Anxious Assessment & Plan - Diagnosis (1) Anaphylaxis Qualifiers: Encounter type: initial encounter Qualified Code(s): T78.2XXA - Anaphylactic shock, unspecified, initial encounter Is this a current diagnosis for this admission?: Yes Plan: Patient with anaphylactoid reaction to penicillin. Zosyn was stopped. Patient given IM epinephrine 2. Given Pepcid 20 mg IV every 12, and additional 125 mg of IV Solu-Medrol. Patient still not showing much improvement and transferred to ICU for ongoing care and possible epinephrine drip. (2) Pemphigus vulgaris Is this a current diagnosis for this admission?: Yes Plan: Continue scheduled Solu-Medrol per primary. Agree with primary that there appears to be no infection of his pemphigus, and will not start antibiotics at this time (3) SVT (supraventricular tachycardia) Is this a current diagnosis for this admission?: Yes Plan: Patient normally takes pindolol for SVT. We will monitor patient on telemetry. - Plan Summary Plan Summary: Total time spent with patient including patient education, physical examination, and formulation of plan was 35 minutes of critical care time.
[2017-03-21] MEDS: HYDROMORPHONE HCL INJ/PF 2 MG/ML AMPULE IV PRN (22:35)
[2017-03-21] MEDS: VANCOMYCIN HCL 1,000 MG in DEXTROSE 5%-WATER 250 ML IV SCH (22:36)
[2017-03-22 04:12] LABS: ABSOLUTE LYMPHOCYTES (AUTO) 0.4 10^3/uL (0.5-4.7); ABSOLUTE NEUT (AUTO) 7.9 10^3/uL (1.7-8.2); BASOPHILS % (AUTO) 0.2 % (0-2); EOSINOPHILS % (AUTO) 0.1 % (0-6); HEMATOCRIT 35.7 % (37.9-51.0); HEMOGLOBIN 12.5 g/dL (13.5-17.0); HGB HCT DIFFERENCE 1.8; LYMPHOCYTES % (AUTO) 5.2 % (13-45); MEAN CORPUSCULAR HEMOGLOBIN 29.8 pg (27.0-33.4); MEAN CORPUSCULAR HGB CONC 35.1 g/dL (32.0-36.0); MEAN CORPUSCULAR VOLUME 85 fl (80-97); MONOCYTES % (AUTO) 0.4 % (3-13); RED BLOOD COUNT 4.19 10^6/uL (4.35-5.55); RED CELL DISTRIBUTION WIDTH 13.4 % (11.5-14.0); SEGMENTED NEUTROPHILS % (AUTO) 94.1 % (42-78); WHITE BLOOD COUNT 8.4 10^3/uL (4.0-10.5)
[2017-03-22 04:25] LABS: ANION GAP 13 (5-19); BLOOD UREA NITROGEN 13 mg/dL (7-20); CALCIUM 9.5 mg/dL (8.4-10.2); CARBON DIOXIDE 23 mmol/L (22-30); CHLORIDE 107 mmol/L (98-107); CREATININE RESULT 0.96 mg/dL (0.52-1.25); GLUCOSE 124 mg/dL (75-110); MAGNESIUM 2.2 mg/dL (1.6-2.3); POTASSIUM 5.2 mmol/L (3.6-5.0); SODIUM 142.8 mmol/L (137-145)
[2017-03-22] MEDS: HYDROMORPHONE HCL INJ/PF 2 MG/ML AMPULE IV PRN ×3 (04:41→17:28)
[2017-03-22] MEDS: OXYCODONE HCL IR 5 MG TABLET PO PRN ×2 (07:52→11:45)
[2017-03-22] MEDS ORDERED: ENOXAPARIN SODIUM INJ 40 MG/0.4 ML DISP.SYRIN SUBCUT SCH (10:00)
[2017-03-22] MEDS ORDERED: METHYLPREDNISOLONE SOD SUCC 500 MG in NORMAL SALINE 50 ML IV SCH (10:00)
[2017-03-22] MEDS: FAMOTIDINE INJ/PF 20 MG/2 ML SDV IV SCH (10:08)
[2017-03-22] MEDS: ONDANSETRON HCL INJ/PF 4 MG/2 ML SDV IV PRN (11:36)
[2017-03-22] MEDS: VANCOMYCIN HCL 1,000 MG in DEXTROSE 5%-WATER 250 ML IV SCH (11:36)
[2017-03-22] MEDS ORDERED: METOCLOPRAMIDE HCL INJ/PF 10 MG/2 ML SDV ONE (13:42)
[2017-03-22] MEDS ORDERED: LANSOPRAZOLE 30 MG TAB.RAP.DR PO ONE (14:30)
[2017-03-22 17:56] VITALS: BP 98/80
[2017-03-22] MEDS ORDERED: PINDOLOL PO SCH (18:00)
== END 2017-03-22 18:31 | disposition home or self-care (01) | DRG 603 ==
LOC: ER 12:07 → EH 15:34 → UNDOADMIN 15:37 → 4S 16:55 → ICU 22:00 → 4S 03-22 08:29
PROVIDERS: ADMIT Hospitalist; ATTEND Hospitalist
DX: L03.114 Cellulitis of left upper limb (principal); L10.0 Pemphigus vulgaris; I47.1 Supraventricular tachycardia; T88.6XXA Anaphylactic reaction due to adverse effect of correct drug or medicament properly administered, initial encounter; S61.012D Laceration without foreign body of left thumb without damage to nail, subsequent encounter; F43.10 Post-traumatic stress disorder, unspecified; T36.0X5A Adverse effect of penicillins, initial encounter; Y92.239 Unspecified place in hospital as the place of occurrence of the external cause; F17.210 Nicotine dependence, cigarettes, uncomplicated; F41.9 Anxiety disorder, unspecified; I25.10 Atherosclerotic heart disease of native coronary artery without angina pectoris; K21.9 Gastro-esophageal reflux disease without esophagitis; Z88.1 Allergy status to other antibiotic agents; Z88.8 Allergy status to other drugs, medicaments and biological substances; Z83.3 Family history of diabetes mellitus; Z82.3 Family history of stroke; Z90.49 Acquired absence of other specified parts of digestive tract; Z87.442 Personal history of urinary calculi; Z79.899 Other long term (current) drug therapy
CPT/HCPCS: 36415; 80048; 80307; 81001; 82550; 83735; 85025; 87040; 96361; 96365; 96367; 96375; 99284; J0171; J1170; J1200; J1650; J2060; J2270; J2405; J2543; J2920; J2930; J3370; J3490; J7030; J7060; S0028

== ENCOUNTER 2017-04-16 17:09 | Emergency (ER) | payer OTHER ==
[2017-04-16] MEDS ORDERED: OXYCODONE-ACETAMINOPHEN 5-325 MG TABLET PO ONE (18:06)
[2017-04-16] MEDS ORDERED: BUPIVACAINE HCL 0.5 % INJ/PF 30 ML SDV INJ ONE (18:18)
--- NOTE | 2017-04-16 18:41 | ER Document Report ---
ED General - General Chief Complaint: Toothache Stated Complaint: MOUTH PAIN Time Seen by Provider: 04/16/17 18:06 Mode of Arrival: Ambulatory Information source: Patient Notes: Patient states she had a dental procedure performed today of the dental office. He states they could not completely get him under so they have been in the procedure and discharge him home. He states he is now having severe tooth pain. This pain is constant and severe. Nothing makes it better or worse. It radiates into his right face. It is a sharp pain. TRAVEL OUTSIDE OF THE [place] IN LAST 30 DAYS: No - Related Data Allergies/Adverse Reactions: ciprofloxacin [From Cipro] Allergy (Severe, Verified 04/16/17 17:28) Shortness of Breath gadoteridol [From Prohance] Allergy (Severe, Verified 04/16/17 17:28) Shortness of Breath hyoscyamine sulfate [From Levsin] Allergy (Severe, Verified 04/16/17 17:28) Shortness of Breath Iodinated Contrast- Oral and IV Dye Allergy (Severe, Verified 04/16/17 17:28) metoclopramide HCl [From Reglan] Allergy (Severe, Verified 04/16/17 17:28) Shortness of Breath promethazine HCl [From Phenergan] Allergy (Severe, Verified 04/16/17 17:28) Shortness of Breath piperacillin [From Zosyn] Adverse Reaction (Verified 04/16/17 17:28) tazobactam [From Zosyn] Adverse Reaction (Verified 04/16/17 17:28) Past Medical History - Social History Smoking Status: Unknown if Ever Smoked Chew tobacco use (# tins/day): Yes - 1/day Frequency of alcohol use: Occasional Drug Abuse: None Family History: Arthritis, CAD, CVA, DM, Hyperlipidemia, Hypertension, Malignancy, Thyroid Disfunction Patient has suicidal ideation: No Patient has homicidal ideation: No - Past Medical History Cardiac Medical History: Reports: Hx Coronary Artery Disease - CARDIAC CATH/ LOOP RECORDER/ ABLATION X 2, Hx Heart Attack - X 3 Pulmonary Medical History: Reports: Hx Pneumonia Neurological Medical History: Reports: Hx Seizures - [facility]2012- COMA FOR ONE WEEK- MEDICATION INDUCED Renal/ Medical History: Reports: Hx Kidney Stones - 23 stones. Denies: Hx Peritoneal Dialysis GI Medical History: Reports: Hx Gastritis, Hx Gastroesophageal Reflux Disease, Hx Hiatal Hernia, Hx Endoscopy Musculoskeltal Medical History: Reports Hx Arthritis, Reports Hx Musculoskeletal Deformity, Reports Hx Musculoskeletal Trauma Skin Medical History: Reports Hx Cellulitis Psychiatric Medical History: Reports: Hx Anxiety, Hx Post Traumatic Stress Disorder Past Surgical History: Reports: Hx Abdominal Surgery - hernia repair, Minal Fundoplication, partial esophagectomy, Hx Appendectomy, Hx Cardiac Surgery - 2X ablation, Hx Inguinal Hernia - 2, Hx Orthopedic Surgery - R shoulder, Other - Minal's fundoplication with esophagectomy. - Immunizations Immunizations up to date: Yes Hx Diphtheria, Pertussis, Tetanus Vaccination: Yes - 09/24/2015 Hx Pneumococcal Vaccination: 06/03/13 Review of Systems - Review of Systems Constitutional: denies: Chills, Fever Cardiovascular: denies: Chest pain, Palpitations Respiratory: denies: Cough, Short of breath Physical Exam - Vital signs Vitals: Temp Pulse Resp BP Pulse Ox 98.8 F 116 H 18 143/91 H 98 04/16/17 17:29 04/16/17 17:29 04/16/17 17:29 04/16/17 17:29 04/16/17 17:29 Interpretation: Hypertensive, Tachycardic - General General appearance: Appears well, Alert In distress: None - HEENT Teeth diagram: 1 - Area of necrotic tooth and pain Pharynx: Normal Neck: Normal - Respiratory Respiratory status: No respiratory distress Chest status: Nontender Breath sounds: Normal Chest palpation: Normal - Cardiovascular Rhythm: Tachycardia Heart sounds: Normal auscultation Murmur: No - Psychological Associated symptoms: Normal affect, Anxious - Skin Skin Temperature: Warm Skin Moisture: Dry Skin Color: Normal Course - Vital Signs Vital signs: Temp Pulse Resp BP Pulse Ox 98.8 F 116 H 18 143/91 H 98 04/16/17 17:29 04/16/17 17:29 04/16/17 17:29 04/16/17 17:29 04/16/17 17:29 04/16/17 18:38 A right mental nerve block was performed with 3 cc of 0.5% Marcaine. Patient tolerated the procedure well and there was relief of pain. Discharge - Discharge Clinical Impression: Pain, dental Condition: Stable Disposition: HOME, SELF-CARE Instructions: Oral Narcotic Medication ([facility]), Toothache ([facility]), Penicillin V K ( [facility]), [facility] Additional Instructions: Please find a dentist as soon as possible to further evaluate your dental situation Your blood pressure is mildly elevated. Please have this checked within 1 week by your doctor. Prescriptions: Cephalexin Monohydrate [Keflex 500 mg Capsule] 500 mg PO Q6H 7 Days capsule Oxycodone HCl/Acetaminophen [Percocet 5-325 mg Tablet] 1 - 2 tab PO Q4H PRN #15 tablet PRN Reason: Forms: Elevated Blood Pressure, Return to Work Referrals: LUZ MARIA HANNA MD [[facility] STAFF] - Follow up as needed
[2017-04-16 18:48] VITALS: BP 129/78
[2017-04-16] MEDS ORDERED: ONDANSETRON 4 MG TAB.RAPDIS PO ONE (18:51)
== END 2017-04-16 18:54 | disposition home or self-care (01) ==
LOC: ER 17:09
PROC: 3E0T3BZ Introduction of Anesthetic Agent into Peripheral Nerves and Plexi, Percutaneous Approach (ICD-10-PCS; principal; 2017-04-16)
DX: K08.89 Other specified disorders of teeth and supporting structures (principal); I25.2 Old myocardial infarction; I25.10 Atherosclerotic heart disease of native coronary artery without angina pectoris
CPT/HCPCS: 99282; 64400; S0119

== ENCOUNTER 2017-05-31 17:20 | Emergency (ER) | payer OTHER ==
[2017-05-31 17:26] VITALS: BP 131/89
[2017-05-31] MEDS ORDERED: ACETAMINOPHEN 325 MG TABLET PO ONE (17:54)
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
== END 2017-05-31 18:28 | disposition home or self-care (01) ==
LOC: ER 17:20
DX: S60.012A Contusion of left thumb without damage to nail, initial encounter (principal); W22.8XXA Striking against or struck by other objects, initial encounter; Y93.89 Activity, other specified; I10 Essential (primary) hypertension; I25.10 Atherosclerotic heart disease of native coronary artery without angina pectoris; I25.2 Old myocardial infarction; Z88.1 Allergy status to other antibiotic agents; Z91.041 Radiographic dye allergy status; Z88.8 Allergy status to other drugs, medicaments and biological substances; Z72.0 Tobacco use
CPT/HCPCS: 99283

== ENCOUNTER 2017-06-01 15:20 | Emergency (ER) | payer OTHER ==
[2017-06-01 15:26] VITALS: BP 133/97
[2017-06-01] MEDS ORDERED: METHYLPREDNISOLONE INJ 125 MG/2 ML SDV IV ONE (18:12)
[2017-06-01] MEDS ORDERED: HYDROCODONE/ACETAMINOPHEN 5-325 MG TABLET PO ONE (18:12)
--- NOTE | 2017-06-01 18:22 | ER Document Report ---
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 He has a large rash with 2 large water blisters to the area. He states that last time he had this he had to come into the emergency room get IV Solu-Medrol for several days. He has been admitted for the same. He states he has dressings at home for when the water blisters pop. TRAVEL OUTSIDE OF THE [place] IN LAST 30 DAYS: No - HPI Patient complains to provider of: Other - pemphigus vulgarius flare Onset: This morning Onset/Duration: Gradual Quality of pain: Burning, Sharp Severity: Moderate Pain Level: 4 Skin Character: Other - pemphigus vulgarius flare Quality of rash: Painful Identify cause: Yes Exacerbated by: Movement, Other - palpation Relieved by: Denies Similar symptoms previously: Yes Recently seen / treated by doctor: Yes - Related Data Allergies/Adverse Reactions: ciprofloxacin [From Cipro] Allergy (Severe, Verified 06/01/17 15:22) Shortness of Breath gadoteridol [From Prohance] Allergy (Severe, Verified 06/01/17 15:22) Shortness of Breath hyoscyamine sulfate [From Levsin] Allergy (Severe, Verified 06/01/17 15:22) Shortness of Breath Iodinated Contrast- Oral and IV Dye Allergy (Severe, Verified 06/01/17 15:22) metoclopramide HCl [From Reglan] Allergy (Severe, Verified 06/01/17 15:22) Shortness of Breath promethazine HCl [From Phenergan] Allergy (Severe, Verified 06/01/17 15:22) Shortness of Breath piperacillin [From Zosyn] Adverse Reaction (Verified 06/01/17 15:22) tazobactam [From Zosyn] Adverse Reaction (Verified 06/01/17 15:22) Past Medical History - General Information source: Patient - Social History Smoking Status: Never Smoker Chew tobacco use (# tins/day): Yes Frequency of alcohol use: None Drug Abuse: None Family History: Arthritis, CAD, CVA, DM, Hyperlipidemia, Hypertension, Malignancy, Thyroid Disfunction Patient has suicidal ideation: No Patient has homicidal ideation: No - Past Medical History Cardiac Medical History: Reports: Hx Coronary Artery Disease - CARDIAC CATH/ LOOP RECORDER/ ABLATION X 2, Hx Heart Attack - X 3 Pulmonary Medical History: Reports: Hx Pneumonia Neurological Medical History: Reports: Hx Seizures - 2012- COMA FOR ONE WEEK- MEDICATION INDUCED Endocrine Medical History: Reports: None Renal/ Medical History: Reports: Hx Kidney Stones - 23 stones Malignancy Medical History: Reports None GI Medical History: Reports: None, Hx Gastritis, Hx Gastroesophageal Reflux Disease, Hx Hiatal Hernia, Hx Endoscopy Musculoskeltal Medical History: Reports Hx Arthritis, Reports Hx Musculoskeletal Deformity, Reports Hx Musculoskeletal Trauma Skin Medical History: Reports Hx Cellulitis, Reports Other - pemphigus vulgarius Psychiatric Medical History: Reports: Hx Anxiety, Hx Post Traumatic Stress Disorder Traumatic Medical History: Reports: None Infectious Medical History: Reports: None Past Surgical History: Reports: Hx Abdominal Surgery - hernia repair, Minal Fundoplication, partial esophagectomy, Hx Appendectomy, Hx Cardiac Surgery - 2X ablation, Hx Inguinal Hernia - 2, Hx Orthopedic Surgery - R shoulder, Other - Minal's fundoplication with esophagectomy. - Immunizations Immunizations up to date: Yes Hx Diphtheria, Pertussis, Tetanus Vaccination: Yes - 09/24/2015 Hx Pneumococcal Vaccination: 06/03/13 Review of Systems - Review of Systems Constitutional: No symptoms reported EENT: No symptoms reported Cardiovascular: No symptoms reported Respiratory: No symptoms reported Gastrointestinal: No symptoms reported Genitourinary: No symptoms reported Male Genitourinary: No symptoms reported Musculoskeletal: No symptoms reported Skin: Rash - With large water blisters to his upper left arm. He states this is the area he usually gets his pemphigus vulgarius flares and this is how they develop. He states the pain is severe, Other - His left hand is still bruised and swollen he was seen yesterday that with a negative x-ray and instructed to follow-up with orthopedics. Hematologic/Lymphatic: No symptoms reported Neurological/Psychological: No symptoms reported Physical Exam - Vital signs Vitals: Temp Pulse Resp BP Pulse Ox 98.7 F 112 H 20 133/97 H 100 06/01/17 15:25 06/01/17 15:25 06/01/17 15:25 06/01/17 15:25 06/01/17 15:25 Interpretation: Normal - General General appearance: Appears well, Alert - HEENT Head: Normocephalic, Atraumatic Eyes: Normal Pupils: PERRL - Respiratory Respiratory status: No respiratory distress Chest status: Nontender Breath sounds: Normal Chest palpation: Normal - Cardiovascular Rhythm: Regular Heart sounds: Normal auscultation Murmur: No - Abdominal Inspection: Normal Distension: No distension Bowel sounds: Normal Tenderness: Nontender Organomegaly: No organomegaly - Back Back: Normal, Nontender - Extremities General upper extremity: Normal color, Normal ROM, Normal temperature General lower extremity: Normal inspection, Nontender, Normal color, Normal ROM , Normal temperature, Normal weight bearing. No: Danuta's sign Arm: Tender, Other - pemphigus vulgarius flare ,rash, with large water blisters Hand: Tender, Ecchymosis, No evidence of human bite, No evidence of FB, Swelling - minimal - Neurological Neuro grossly intact: Yes Cognition: Normal Orientation: AAOx4 [place] Coma Scale Eye Opening: Spontaneous [place] Coma Scale Verbal: Oriented [place] Coma Scale Motor: Obeys Commands [place] Coma Scale Total: 15 Speech: Normal Motor strength normal: LUE, RUE, LLE, RLE Sensory: Normal - Psychological Associated symptoms: Normal affect, Normal mood - Skin Skin Temperature: Warm Skin Moisture: Dry Skin Color: Normal Course - Re-evaluation Re-evalutation: 06/01/17 19:[address] Figueroa who came and examined the arm. He recommended calling [place] or [facility] for consult with a weathercaster. [facility] stated they did not have any weathercaster hospital nurse liaison to consult with. I spoke with a Dr. Chris Reese at [facility]. He stated that he will call the patient on Saturday and schedule a follow-up appointment. He states he would put him on steroids until he follows up with them as he really needs a dermatology to be monitoring his care. - Vital Signs Vital signs: Temp Pulse Resp BP Pulse Ox 98.7 F 112 H 20 133/97 H 100 06/01/17 15:25 06/01/17 15:25 06/01/17 15:25 06/01/17 15:25 06/01/17 15:25 - Laboratory Result Diagrams: 06/01/17 19:59 06/01/17 19:59 Laboratory results interpreted by me: 06/01/17 19:59 ALT 18 L Discharge - Discharge Clinical Impression: Pemphigus vulgaris HTN (hypertension) Qualifiers: Hypertension type: unspecified Qualified Code(s): I10 - Essential (primary) hypertension Condition: Stable Disposition: HOME, SELF-CARE Additional Instructions: I have spoken with a weathercaster Dr. Chris Reese at [facility] in [place]. He states he will call you on Saturday at the phone number that she said was your proper phone number of [phone]. He stated that she gave the steroids until you follow-up with him. He suggested prednisone 2 mg/kg slowly tapering. STEROID MEDICATION: You have been given an injection of medicine of the cortisone/steroid class. This medication is used to control inflammation or allergy. It is often continued as a pill for a short period of time, until the acute process subsides. There are usually no side effects from short-term use of cortisone-like medications. Some persons feel an increased sense of well-being and are not sleepy at bedtime. Long-term use of cortisone medications is best avoided, unless required for a severe condition. If your condition does not remit, or relapses after the course of corticosteroid medication, you should consult your physician. STEROID MEDICATION: You have been given a medicine of the cortisone/steroid class. This medication is used to control inflammation or allergy. It is usually only given for a short period of time, until the acute process subsides. There are usually no side effects from short-term use of cortisone-like medications. Some persons feel an increased sense of well-being and are not sleepy at bedtime. Long-term use of cortisone medications is best avoided, unless required for a severe condition. If your condition does not remit, or relapses after the course of corticosteroid medication, you should consult your physician. Oral Narcotic Medication You have been given a Vale disp pack for pain control. This medication is a narcotic. It's best taken with food, as nausea can result if taken on an empty stomach. Don't operate machinery or drive within six hours of taking this medication. Do not combine this medicine with alcohol, or with any medication which can cause sedation (such as cold tablets or sleeping pills) unless you get permission from the physician. Narcotics tend to cause constipation. If possible, drink plenty of fluids and eat a diet high in fiber and fruits. Prescriptions: Prednisone 10 mg PO ASDIR PRN #78 tablet PRN Reason: Forms: Elevated Blood Pressure
--- NOTE | 2017-06-01 19:06 | ER Document Report ---
Doctor's Note Notes: 06/01/17 19:05 I was asked to see this patient in consultation. 32-year-old male with a history of pemphigus vulgaris who presents with blistering to his left lateral arm yesterday. He denies any fevers or vomiting. He denies any mouth or oral mucosal lesions. Patient denies any recent visits to a [employer] team member. Patient states he had a [employer] team member previously been moved out of the area. He has no current [employer] team member present. Patient had a similar breakout a month or so previously. He was treated with high-dose steroids. On examination the patient has a blistering lesion to the left mid lateral humerus. No fluctuance or induration. No extension past the humerus. It is not circumferential. No intraoral lesions present. Given the above history and physical examination without a [employer] team member, we will consult a [employer] team member hand stoner and 1 of the major centers for recommendations and to help expedite follow-up. Provide a dose of steroids here.
[2017-06-01] MEDS ORDERED: HYDROCODONE/ACETAMINOPHEN 5-325 MG (6 TAB/ER DISP) PO PRN (19:59)
[2017-06-01 20:10] LABS: ABSOLUTE BASOPHILS # (AUTO) 0.1 10^3/uL (0.0-0.2); ABSOLUTE EOSINOPHILS # (AUTO) 0.2 10^3/uL (0.0-0.6); ABSOLUTE LYMPHOCYTES (AUTO) 2.3 10^3/uL (0.5-4.7); ABSOLUTE MONOCYTES (AUTO) 0.6 10^3/uL (0.1-1.4); ABSOLUTE NEUT (AUTO) 5.5 10^3/uL (1.7-8.2); EOSINOPHILS % (AUTO) 1.8 % (0-6); HEMATOCRIT 40.1 % (37.9-51.0); HEMOGLOBIN 13.9 g/dL (13.5-17.0); LYMPHOCYTES % (AUTO) 26.9 % (13-45); MEAN CORPUSCULAR HEMOGLOBIN 29.7 pg (27.0-33.4); MEAN CORPUSCULAR HGB CONC 34.6 g/dL (32.0-36.0); MEAN CORPUSCULAR VOLUME 86 fl (80-97); MONOCYTES % (AUTO) 6.9 % (3-13); PLATELET COUNT 295 10^3/uL (150-450); RED BLOOD COUNT 4.67 10^6/uL (4.35-5.55); RED CELL DISTRIBUTION WIDTH 13.7 % (11.5-14.0); SEGMENTED NEUTROPHILS % (AUTO) 63.4 % (42-78); TOTAL CELLS COUNTED % (AUTO) 100 %; WHITE BLOOD COUNT 8.7 10^3/uL (4.0-10.5)
[2017-06-01 20:53] LABS: ALANINE AMINOTRANSFERASE 18 U/L (21-72); ALBUMIN 4.5 g/dL (3.5-5.0); ALKALINE PHOSPHATASE 40 U/L (38-126); ANION GAP 11 (5-19); ASPARTATE AMINO TRANSFERASE 23 U/L (17-59); BILIRUBIN,DIRECT 0.4 mg/dL (0.0-0.4); BILIRUBIN,TOTAL 0.6 mg/dL (0.2-1.3); BLOOD UREA NITROGEN 10 mg/dL (7-20); CALCIUM 10.1 mg/dL (8.4-10.2); CARBON DIOXIDE 27 mmol/L (22-30); CHLORIDE 104 mmol/L (98-107); GLUCOSE 90 mg/dL (75-110); POTASSIUM 4.4 mmol/L (3.6-5.0); SODIUM 141.7 mmol/L (137-145); TOTAL PROTEIN 7.3 g/dL (6.3-8.2)
== END 2017-06-01 21:06 | disposition home or self-care (01) ==
LOC: ER 15:20
DX: L10.0 Pemphigus vulgaris (principal); I10 Essential (primary) hypertension; I25.10 Atherosclerotic heart disease of native coronary artery without angina pectoris; I25.2 Old myocardial infarction; Z88.1 Allergy status to other antibiotic agents; Z88.8 Allergy status to other drugs, medicaments and biological substances; Z91.040 Latex allergy status
CPT/HCPCS: 99283; 96374; 36415; 85025; 80053; J2930

== ENCOUNTER 2017-06-03 13:03 | Emergency (ER) | payer OTHER ==
[2017-06-03 13:08] VITALS: BP 128/99
[2017-06-03] MEDS ORDERED: METHYLPREDNISOLONE INJ 1000 MG VIAL IV ONE (14:02)
[2017-06-03] MEDS ORDERED: KETOROLAC TROMETHAMINE INJ/PF 30 MG/1 ML SDV IV ONE (14:03)
--- NOTE | 2017-06-03 14:09 | ER Document Report ---
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 He was seen here on 06/01/2017 for the same. He was started on prednisone 10 mg tablets 12 on day 1 and one less each day until gone. He did receive Solu-Medrol 125 mg IV on that visit. The nurse practitioner did consult with his doctor at [facility] who recommended steroid dosing and was going to call the patient on Saturday, tomorrow, to schedule a follow-up appointment. The patient has follow that regimen. He returns today because the area is growing and getting worse. There is now a large red swelling area developing lateral to the original blister. He states the area hein quite a bit. TRAVEL OUTSIDE OF THE [place] IN LAST 30 DAYS: No - Related Data Allergies/Adverse Reactions: ciprofloxacin [From Cipro] Allergy (Severe, Verified 06/03/17 13:04) Shortness of Breath gadoteridol [From Prohance] Allergy (Severe, Verified 06/03/17 13:04) Shortness of Breath hyoscyamine sulfate [From Levsin] Allergy (Severe, Verified 06/03/17 13:04) Shortness of Breath Iodinated Contrast- Oral and IV Dye Allergy (Severe, Verified 06/03/17 13:04) metoclopramide HCl [From Reglan] Allergy (Severe, Verified 06/03/17 13:04) Shortness of Breath promethazine HCl [From Phenergan] Allergy (Severe, Verified 06/03/17 13:04) Shortness of Breath piperacillin [From Zosyn] Adverse Reaction (Verified 06/03/17 13:04) tazobactam [From Zosyn] Adverse Reaction (Verified 06/03/17 13:04) Home Medications: Current Home Medications Hydrocodone/Acetaminophen [[place] 5-325 mg Tablet] 1 tab PO Q6H 06/03/17 [History ] Past Medical History - General Information source: Patient, [facility] Records - Social History Smoking Status: Never Smoker Cigarette use (# per day): No Chew tobacco use (# tins/day): Yes Smoking Education Provided: No Frequency of alcohol use: Occasional Drug Abuse: None Occupation: Self-employed Lives with: Family, Spouse/Significant other Family History: Arthritis, CAD, CVA, DM, Hyperlipidemia, Hypertension, Malignancy, Thyroid Disfunction Patient has suicidal ideation: No Patient has homicidal ideation: No - Past Medical History Cardiac Medical History: Reports: Hx Coronary Artery Disease - CARDIAC CATH/ LOOP RECORDER/ ABLATION X 2, Hx Heart Attack - X 3 Pulmonary Medical History: Reports: Hx Pneumonia Neurological Medical History: Reports: Hx Seizures - 2012- COMA FOR ONE WEEK- MEDICATION INDUCED Endocrine Medical History: Reports: None Renal/ Medical History: Reports: Hx Kidney Stones - 23 stones GI Medical History: Reports: Hx Gastritis, Hx Gastroesophageal Reflux Disease, Hx Hiatal Hernia, Hx Endoscopy Musculoskeltal Medical History: Reports Hx Arthritis, Reports Hx Musculoskeletal Deformity, Reports Hx Musculoskeletal Trauma Skin Medical History: Reports Hx Cellulitis, Reports Other - Pemphigus vulgaris Psychiatric Medical History: Reports: Hx Anxiety, Hx Post Traumatic Stress Disorder Past Surgical History: Reports: Hx Abdominal Surgery - hernia repair, Minal Fundoplication, partial esophagectomy, Hx Appendectomy, Hx Cardiac Surgery - 2X ablation, Hx Inguinal Hernia - 2, Hx Orthopedic Surgery - R shoulder, Other - Minal's fundoplication with esophagectomy. - Immunizations Immunizations up to date: Yes Hx Diphtheria, Pertussis, Tetanus Vaccination: Yes - 09/24/2015 Hx Pneumococcal Vaccination: 06/03/13 Review of Systems - Review of Systems Constitutional: No symptoms reported EENT: No symptoms reported Cardiovascular: No symptoms reported Gastrointestinal: No symptoms reported Genitourinary: No symptoms reported Musculoskeletal: No symptoms reported Skin: See HPI Hematologic/Lymphatic: No symptoms reported Neurological/Psychological: No symptoms reported Physical Exam - Vital signs Vitals: Temp Pulse Resp BP Pulse Ox 98.6 F 119 H 14 128/99 H 100 06/03/17 13:07 06/03/17 13:07 06/03/17 13:07 06/03/17 13:07 06/03/17 13:07 Interpretation: Tachycardic - General General appearance: Appears well, Alert In distress: None - HEENT Head: Normocephalic, Atraumatic Eyes: Normal Pupils: PERRL Neck: Normal - Respiratory Respiratory status: No respiratory distress Breath sounds: Normal - Cardiovascular Rhythm: Regular Heart sounds: Normal auscultation Murmur: No - Abdominal Inspection: Normal - Back Back: Normal - Extremities General upper extremity: Other - Upper lateral left arm there is a large blister that remains intact. There is some skin proximal to that where the blister skin had come off. Lateral to the large blister is a large area of erythema and swelling in the skin representing progression of the pemphigus vulgaris reaction. General lower extremity: Normal inspection - Neurological Neuro grossly intact: Yes - Psychological Associated symptoms: Normal affect, Normal mood Course - Vital Signs Vital signs: Temp Pulse Resp BP Pulse Ox 98.6 F 119 H 14 128/99 H 100 06/03/17 13:07 06/03/17 13:07 06/03/17 13:07 06/03/17 13:07 06/03/17 13:07 Discharge - Discharge Clinical Impression: Pemphigus vulgaris Condition: Stable Disposition: HOME, SELF-CARE Additional Instructions: Hold the prednisone dose for today. Hold the prednisone dose for tomorrow until you speak with your doctor from [place]. Keep the left upper arm dressing clean and intact for a few days. Then remove the dressing and clean and redress the excoriated area. RETURN TO THE EMERGENCY ROOM IF ANY NEW OR WORSENING SYMPTOMS.
[2017-06-03] MEDS ORDERED: HYDROMORPHONE HCL INJ/PF 2 MG/ML AMPULE IV ONE (14:51)
[2017-06-03] MEDS ORDERED: LIDOCAINE 4% TRANSPARENT DRESSING 5 GM KIT TP ONE (15:47)
[2017-06-03] MEDS: HYDROCODONE/ACETAMINOPHEN 5-325 MG (6 TAB/ER DISP) PO PRN ×2 (15:56→15:57)
== END 2017-06-03 16:05 | disposition home or self-care (01) ==
LOC: ER 13:03
DX: L10.0 Pemphigus vulgaris (principal); I25.10 Atherosclerotic heart disease of native coronary artery without angina pectoris; I25.2 Old myocardial infarction; Z88.1 Allergy status to other antibiotic agents; Z91.041 Radiographic dye allergy status; Z88.8 Allergy status to other drugs, medicaments and biological substances
CPT/HCPCS: 99283; 96374; 96375; J2930; J1885; J1170; J3490

== ENCOUNTER 2017-06-09 18:15 | Emergency (ER) | payer OTHER ==
[2017-06-10 03:53] LABS: ABSOLUTE EOSINOPHILS # (AUTO) 0.1 10^3/uL (0.0-0.6); ABSOLUTE LYMPHOCYTES (AUTO) 2.2 10^3/uL (0.5-4.7); ABSOLUTE MONOCYTES (AUTO) 0.6 10^3/uL (0.1-1.4); ABSOLUTE NEUT (AUTO) 7.6 10^3/uL (1.7-8.2); BASOPHILS % (AUTO) 0.5 % (0-2); EOSINOPHILS % (AUTO) 1.3 % (0-6); HEMATOCRIT 39.7 % (37.9-51.0); HEMOGLOBIN 13.5 g/dL (13.5-17.0); LYMPHOCYTES % (AUTO) 20.5 % (13-45); MEAN CORPUSCULAR HEMOGLOBIN 29.3 pg (27.0-33.4); MEAN CORPUSCULAR HGB CONC 33.9 g/dL (32.0-36.0); MEAN CORPUSCULAR VOLUME 86 fl (80-97); MONOCYTES % (AUTO) 5.8 % (3-13); PLATELET COUNT 325 10^3/uL (150-450); RED BLOOD COUNT 4.59 10^6/uL (4.35-5.55); RED CELL DISTRIBUTION WIDTH 13.5 % (11.5-14.0); SEGMENTED NEUTROPHILS % (AUTO) 71.9 % (42-78); TOTAL CELLS COUNTED % (AUTO) 100 %; WHITE BLOOD COUNT 10.5 10^3/uL (4.0-10.5)
[2017-06-10 12:23] LABS: ANION GAP 11 (5-19); BLOOD UREA NITROGEN 10 mg/dL (7-20); CALCIUM 9.5 mg/dL (8.4-10.2); CARBON DIOXIDE 32 mmol/L (22-30); CHLORIDE 100 mmol/L (98-107); GLUCOSE 85 mg/dL (75-110); POTASSIUM 3.3 mmol/L (3.6-5.0); SODIUM 142.8 mmol/L (137-145)
== END 2017-06-09 22:51 | disposition home or self-care (01) ==
LOC: ER 18:15
DX: R23.8 Other skin changes (principal); M79.602 Pain in left arm; R11.0 Nausea; E11.9 Type 2 diabetes mellitus without complications; I47.1 Supraventricular tachycardia; Z79.899 Other long term (current) drug therapy; F17.200 Nicotine dependence, unspecified, uncomplicated
CPT/HCPCS: 36415; 80048; 85025; 96365; 96372; 96375; 99283

== ENCOUNTER 2017-06-11 14:38 | Emergency (ER) | payer SELFPAY ==
[2017-06-11 14:46] VITALS: BP 124/81
--- NOTE | 2017-06-11 15:51 | ER Document Report ---
ED Medical Screen (RME) - General Chief Complaint: Skin Problem Stated Complaint: LEFT ARM BLISTERS Time Seen by Provider: 06/11/17 15:37 Notes: This 32-year-old male patient comes emergency room for pain to his left upper arm. He has a very comp gated history involving erythema and blistering and neuropathic pain coming from the skin of his left upper extremity for some time now he is followed [facility]. He was seen here not long ago with large blisters over the left lateral upper arm and spreading erythema and edema while he was sitting here being observed. He did go back to [facility] where they cleaned off the blisters, biopsied the tissue and put him on fluorinated steroid creams and oral prednisone. He was also put on clindamycin at that time. 2 days ago he was in here with worsening symptoms, the previously blistered area was cleaned up and actually looked like old healing hein, however there is no itching, and there is severe pain. The PA who saw him that evening consulted with [facility] dermatology and they recommended adding Keflex to his regimen. He is back today with worsening symptoms, and now the erythema and pain is spreading down the volar forearm and the ulnar forearm on the left. There is also some developing into his axilla. The pathology report is not back according to the patient. The lack of any improvement with the steroid management would suggest that autoimmune process is not in play. Observing this tissue now 3 times personally, it does not look like an infectious process. The [employer] electronic record system was nonfunctioning 2 nights ago when he was here, so there are no records that I can access at this point to see if there is any other details that may have been missed. I have advised the patient to ask the treating provider in the back to inquire about starting antidepressants and gabapentin when they consult with his doctors at [facility] today. I have greeted and performed a rapid initial assessment of this patient. A comprehensive ED assessment and evaluation of the patient, analysis of test results and completion of the medical decision making process will be conducted by additional ED providers. TRAVEL OUTSIDE OF THE [place] IN LAST 30 DAYS: No - Related Data Allergies/Adverse Reactions: ciprofloxacin [From Cipro] Allergy (Severe, Verified 06/03/17 13:04) Shortness of Breath gadoteridol [From Prohance] Allergy (Severe, Verified 06/03/17 13:04) Shortness of Breath hyoscyamine sulfate [From Levsin] Allergy (Severe, Verified 06/03/17 13:04) Shortness of Breath Iodinated Contrast- Oral and IV Dye Allergy (Severe, Verified 06/03/17 13:04) metoclopramide HCl [From Reglan] Allergy (Severe, Verified 06/03/17 13:04) Shortness of Breath promethazine HCl [From Phenergan] Allergy (Severe, Verified 06/03/17 13:04) Shortness of Breath Penicillins Allergy (Verified 06/11/17 14:40) piperacillin [From Zosyn] Adverse Reaction (Verified 06/03/17 13:04) tazobactam [From Zosyn] Adverse Reaction (Verified 06/03/17 13:04) Home Medications: Current Home Medications Cephalexin Monohydrate [Keflex 500 mg Capsule] 500 mg PO QID 06/11/17 [History] Ibuprofen 800 mg PO PRN PRN 06/11/17 [History] Sulfamethoxazole/Trimethoprim [Bactrim 400-80 mg Tablet] 1 each PO DAILY [History] Tramadol HCl 50 mg PO PRN PRN 06/11/17 [History] Past Medical History - Social History Chew tobacco use (# tins/day): Yes Frequency of alcohol use: Rare Drug Abuse: None - Past Medical History Cardiac Medical History: Reports: Hx Coronary Artery Disease - CARDIAC CATH/ LOOP RECORDER/ ABLATION X 2, Hx Heart Attack - X 3 Pulmonary Medical History: Reports: Hx Pneumonia Neurological Medical History: Reports: Hx Seizures - 2012- COMA FOR ONE WEEK- MEDICATION INDUCED Renal/ Medical History: Reports: Hx Kidney Stones - 23 stones. Denies: Hx Peritoneal Dialysis GI Medical History: Reports: Hx Gastritis, Hx Gastroesophageal Reflux Disease, Hx Hiatal Hernia, Hx Endoscopy Musculoskeltal Medical History: Reports Hx Arthritis, Reports Hx Musculoskeletal Deformity, Reports Hx Musculoskeletal Trauma Skin Medical History: Reports Hx Cellulitis Psychiatric Medical History: Reports: Hx Anxiety, Hx Post Traumatic Stress Disorder Past Surgical History: Reports: Hx Abdominal Surgery - hernia repair, Minal Fundoplication, partial esophagectomy, Hx Appendectomy, Hx Cardiac Surgery - 2X ablation, Hx Inguinal Hernia - 2, Hx Orthopedic Surgery - R shoulder, Other - Minal's fundoplication with esophagectomy. - Immunizations Immunizations up to date: Yes Hx Diphtheria, Pertussis, Tetanus Vaccination: Yes - 09/24/2015 History of Influenza Vaccine for 03/2017 - 08/2017 Season: No Physical Exam - Vital signs Vitals: Temp Pulse Resp BP Pulse Ox 98.6 F 128 H 16 124/81 100 06/11/17 14:44 06/11/17 14:44 06/11/17 14:44 06/11/17 14:44 06/11/17 14:44 Course - Vital Signs Vital signs: Temp Pulse Resp BP Pulse Ox 98.6 F 128 H 16 124/81 100 06/11/17 14:44 06/11/17 14:44 06/11/17 14:44 06/11/17 14:44 06/11/17 14:44
[2017-06-11] MEDS ORDERED: HYDROMORPHONE HCL 2 MG TABLET PO ONE (18:17)
--- NOTE | 2017-06-11 18:30 | ER Document Report ---
ED Skin Rash/Insect Bite/Abscs - General Chief Complaint: Skin Problem Stated Complaint: LEFT ARM BLISTERS Time Seen by Provider: 06/11/17 15:37 Mode of Arrival: Ambulatory Information source: Patient TRAVEL OUTSIDE OF THE [place] IN LAST 30 DAYS: No - HPI Patient complains to provider of: Skin rash/lesion Onset: Last week Quality of pain: Burning Severity: Moderate Skin Character: Bullous, Erythema Skin Temperature: Warm Quality of rash: Painful, Burning Identify cause: No Exacerbated by: Denies Relieved by: Denies Similar symptoms previously: No Recently seen / treated by doctor: Yes - DERM @ [facility], 06/05/2017 - Related Data Allergies/Adverse Reactions: ciprofloxacin [From Cipro] Allergy (Severe, Verified 06/03/17 13:04) Shortness of Breath gadoteridol [From Prohance] Allergy (Severe, Verified 06/03/17 13:04) Shortness of Breath hyoscyamine sulfate [From Levsin] Allergy (Severe, Verified 06/03/17 13:04) Shortness of Breath Iodinated Contrast- Oral and IV Dye Allergy (Severe, Verified 06/03/17 13:04) metoclopramide HCl [From Reglan] Allergy (Severe, Verified 06/03/17 13:04) Shortness of Breath promethazine HCl [From Phenergan] Allergy (Severe, Verified 06/03/17 13:04) Shortness of Breath Penicillins Allergy (Verified 06/11/17 14:40) piperacillin [From Zosyn] Adverse Reaction (Verified 06/03/17 13:04) tazobactam [From Zosyn] Adverse Reaction (Verified 06/03/17 13:04) Home Medications: Current Home Medications Cephalexin Monohydrate [Keflex 500 mg Capsule] 500 mg PO QID 06/11/17 [History] Ibuprofen 800 mg PO PRN PRN 06/11/17 [History] Sulfamethoxazole/Trimethoprim [Bactrim 400-80 mg Tablet] 1 each PO DAILY [History] Tramadol HCl 50 mg PO PRN PRN 06/11/17 [History] Past Medical History - Social History Smoking Status: Current Every Day Smoker Chew tobacco use (# tins/day): No Frequency of alcohol use: None Drug Abuse: None Family History: Arthritis, CAD, CVA, DM, Hyperlipidemia, Hypertension, Malignancy, Thyroid Disfunction Patient has suicidal ideation: No Patient has homicidal ideation: No - Past Medical History Cardiac Medical History: Reports: Hx Coronary Artery Disease - CARDIAC CATH/ LOOP RECORDER/ ABLATION X 2, Hx Heart Attack - X 3 Pulmonary Medical History: Reports: Hx Pneumonia Neurological Medical History: Reports: Hx Seizures - 2012- COMA FOR ONE WEEK- MEDICATION INDUCED Renal/ Medical History: Reports: Hx Kidney Stones - 23 stones. Denies: Hx Peritoneal Dialysis GI Medical History: Reports: Hx Gastritis, Hx Gastroesophageal Reflux Disease, Hx Hiatal Hernia, Hx Endoscopy Musculoskeltal Medical History: Reports Hx Arthritis, Reports Hx Musculoskeletal Deformity, Reports Hx Musculoskeletal Trauma Skin Medical History: Reports Hx Cellulitis Psychiatric Medical History: Reports: Hx Anxiety, Hx Post Traumatic Stress Disorder Past Surgical History: Reports: Hx Abdominal Surgery - hernia repair, Minal Fundoplication, partial esophagectomy, Hx Appendectomy, Hx Cardiac Surgery - 2X ablation, Hx Inguinal Hernia - 2, Hx Orthopedic Surgery - R shoulder, Other - Minal's fundoplication with esophagectomy. - Immunizations Immunizations up to date: Yes Hx Diphtheria, Pertussis, Tetanus Vaccination: Yes - 09/24/2015 Hx Pneumococcal Vaccination: 06/03/13 Physical Exam - Vital signs Vitals: Temp Pulse Resp BP Pulse Ox 98.6 F 128 H 16 124/81 100 06/11/17 14:44 06/11/17 14:44 06/11/17 14:44 06/11/17 14:44 06/11/17 14:44 Interpretation: Tachycardic. No: Hypotensive, Hypertensive, Tachypneic, Febrile - General General appearance: Alert, Anxious In distress: None - HEENT Head: Normocephalic Eyes: Normal Conjunctiva: Normal Ears: Normal Nasal: Normal Mouth/Lips: Normal Mucous membranes: Normal Pharynx: Normal Neck: Normal - Respiratory Respiratory status: No respiratory distress - Cardiovascular Rhythm: Regular - Abdominal Inspection: Normal - Back Back: Normal - Extremities General upper extremity: No: Normal inspection - L. UPPER EXTREMITY (SEE "SKIN" BELOW) General lower extremity: Normal inspection Course - Vital Signs Vital signs: Temp Pulse Resp BP Pulse Ox 98.6 F 128 H 16 124/81 100 06/11/17 14:44 06/11/17 14:44 06/11/17 14:44 06/11/17 14:44 06/11/17 14:44 - Laboratory Result Diagrams: 06/11/17 19:08 06/11/17 19:08 Laboratory results interpreted by me: 06/11/17 06/11/17 19:08 22:42 Potassium 3.4 L Chloride 97 L Carbon Dioxide 31 H Glucose 122 H Urine Urobilinogen 2.0 H - Consults DR. PRECIADO Time consulted: 18:40 Reason for consultation: 06/11/17 19:35 SUGGESTS TREATING CELLULITIS WITH INTRAVENOUS ANTIBIOTICS. Discharge - Discharge Clinical Impression: Cellulitis Qualifiers: Site of cellulitis: extremity Site of cellulitis of extremity: upper extremity Laterality: left Qualified Code(s): L03.114 - Cellulitis of left upper limb Disposition: AGAINST MEDICAL ADVICE
[2017-06-11 19:16] LABS: ABSOLUTE BASOPHILS # (AUTO) 0.1 10^3/uL (0.0-0.2); ABSOLUTE EOSINOPHILS # (AUTO) 0.1 10^3/uL (0.0-0.6); ABSOLUTE LYMPHOCYTES (AUTO) 2.1 10^3/uL (0.5-4.7); ABSOLUTE MONOCYTES (AUTO) 0.5 10^3/uL (0.1-1.4); ABSOLUTE NEUT (AUTO) 5.5 10^3/uL (1.7-8.2); BASOPHILS % (AUTO) 0.9 % (0-2); EOSINOPHILS % (AUTO) 1.6 % (0-6); HEMOGLOBIN 14.4 g/dL (13.5-17.0); LYMPHOCYTES % (AUTO) 25.4 % (13-45); MEAN CORPUSCULAR HEMOGLOBIN 30.1 pg (27.0-33.4); MEAN CORPUSCULAR HGB CONC 35.2 g/dL (32.0-36.0); MEAN CORPUSCULAR VOLUME 86 fl (80-97); MONOCYTES % (AUTO) 5.6 % (3-13); PLATELET COUNT 327 10^3/uL (150-450); RED BLOOD COUNT 4.79 10^6/uL (4.35-5.55); RED CELL DISTRIBUTION WIDTH 13.5 % (11.5-14.0); SEGMENTED NEUTROPHILS % (AUTO) 66.5 % (42-78); TOTAL CELLS COUNTED % (AUTO) 100 %; WHITE BLOOD COUNT 8.2 10^3/uL (4.0-10.5)
[2017-06-11] MEDS ORDERED: VANCOMYCIN HCL INJ 1000 MG VIAL IV ONE (19:36)
[2017-06-11 19:39] LABS: ALANINE AMINOTRANSFERASE 23 U/L (21-72); ALKALINE PHOSPHATASE 59 U/L (38-126); ANION GAP 11 (5-19); ASPARTATE AMINO TRANSFERASE 23 U/L (17-59); BILIRUBIN,DIRECT 0.2 mg/dL (0.0-0.4); BILIRUBIN,TOTAL 0.7 mg/dL (0.2-1.3); BLOOD UREA NITROGEN 11 mg/dL (7-20); CALCIUM 9.9 mg/dL (8.4-10.2); CARBON DIOXIDE 31 mmol/L (22-30); CHLORIDE 97 mmol/L (98-107); GLUCOSE 122 mg/dL (75-110); POTASSIUM 3.4 mmol/L (3.6-5.0); SODIUM 139.2 mmol/L (137-145); TOTAL PROTEIN 8.1 g/dL (6.3-8.2)
[2017-06-11 19:55] LABS: ERYTHROCYTE SEDIMENTATION RATE 12 mm/hr (0-15)
[2017-06-11] MEDS ORDERED: ACETAMINOPHEN 325 MG TABLET PO PRN (20:58)
[2017-06-11] MEDS ORDERED: ONDANSETRON HCL INJ/PF 4 MG/2 ML SDV IV PRN (20:58)
[2017-06-11] MEDS ORDERED: OXYCODONE-ACETAMINOPHEN 5-325 MG TABLET PO PRN (20:58)
[2017-06-11] MEDS ORDERED: NORMAL SALINE 1000 ML 1,000 ML IV PRN (20:58)
[2017-06-11] MEDS ORDERED: KETOROLAC TROMETHAMINE INJ/PF 30 MG/1 ML SDV IV PRN (21:02)
[2017-06-11] MEDS ORDERED: PHARMACY COMMUNICATION ORDER MC NR (21:15)
[2017-06-11] MEDS ORDERED: POTASSIUM CHLORIDE 10 MEQ TABLET.SA PO ONE (21:30)
[2017-06-11] MEDS ORDERED: FAMOTIDINE 20 MG TABLET PO SCH (22:00)
[2017-06-11] MEDS ORDERED: ENOXAPARIN SODIUM INJ 40 MG/0.4 ML DISP.SYRIN SUBCUT ONE (22:00)
[2017-06-11 23:07] LABS: APPEARANCE,URINE CLEAR; BILIRUBIN,URINE NEGATIVE (NEGATIVE); COLOR,URINE YELLOW; GLUCOSE, URINE NEGATIVE (NEGATIVE); KETONES,URINE NEGATIVE (NEGATIVE); LEUKOCYTE ESTERASE,URINE NEGATIVE (NEGATIVE); NITRITE,URINE NEGATIVE (NEGATIVE); PROTEIN,URINE NEGATIVE (NEGATIVE); URINE SPECIFIC GRAVITY 1.024
--- NOTE | 2017-06-11 23:14 | H&P/Discharge Summary ---
Discharge Summary Admission Date/PCP: 06/11/17 21:13 Discharge Date: 06/11/17 Resuscitation Status: Full Code Consulting Provider: Dr. Tirado, [facility] dermatology - Discharge Diagnosis (1) Left against medical advice Is this a current diagnosis for this admission?: Yes (2) Bullous rash Is this a current diagnosis for this admission?: Yes (3) SVT (supraventricular tachycardia) Is this a current diagnosis for this admission?: Yes Home Medications: Pindolol 10 mg PO BID 03/21/17 Hydrocodone/Acetaminophen [[place] 5-325 mg Tablet] 1 tab PO Q6H 06/03/17 Cephalexin Monohydrate [Keflex 500 mg Capsule] 500 mg PO QID 06/11/17 Ibuprofen 800 mg PO PRN PRN 06/11/17 Sulfamethoxazole/Trimethoprim [Bactrim 400-80 mg Tablet] 1 each PO DAILY Tramadol HCl 50 mg PO PRN PRN 06/11/17 Allergies/Adverse Reactions: ciprofloxacin [From Cipro] Allergy (Severe, Verified 06/03/17 13:04) Shortness of Breath gadoteridol [From Prohance] Allergy (Severe, Verified 06/03/17 13:04) Shortness of Breath hyoscyamine sulfate [From Levsin] Allergy (Severe, Verified 06/03/17 13:04) Shortness of Breath Iodinated Contrast- Oral and IV Dye Allergy (Severe, Verified 06/03/17 13:04) metoclopramide HCl [From Reglan] Allergy (Severe, Verified 06/03/17 13:04) Shortness of Breath promethazine HCl [From Phenergan] Allergy (Severe, Verified 06/03/17 13:04) Shortness of Breath Penicillins Allergy (Verified 06/11/17 14:40) piperacillin [From Zosyn] Adverse Reaction (Verified 06/03/17 13:04) tazobactam [From Zosyn] Adverse Reaction (Verified 06/03/17 13:04) History of Present Illness Admission Date/PCP: 06/11/17 21:13 History of Present Illness: COREY LEYVA is a 32 year old male with past medical history of SVT, and reported pemphigus reports to the emergency department with complaints of left upper extremity rash and pain. Patient reports that this initially started as blisters on his hand and development of macular rash. He reports on Saturday that it became more erythematous and began developing a violaceous area of the medial aspect of his forearm. Patient reports she has been on clindamycin for 2 weeks and then was switched recently to Keflex and Bactrim. He was outside on Saturday, but denied any direct sun exposure. He denied any mucosal involvement. He did complain of chills and dry heaves. I did discuss this case at length with Dr. Tirado, [facility] dermatology, and she reports that his DIF was negative as well as his IIF was also negative. His H& E actually appeared to be possibly due to trauma as opposed to any allergic or infectious process. I did discuss with her the possibility of SJS given his use of Bactrim. While it was considered, it was felt to be unlikely. Patient received a dose of vancomycin, but prior to the completion of his evaluation patient elected to leave AGAINST MEDICAL ADVICE. Patient was awake alert and oriented according to nursing staff. Past Medical History Cardiac Medical History: Reports: Other - History of SVT Pulmonary Medical History: Reports: Pneumonia Neurological Medical History: Reports: Seizures - After overdosing on Restoril GI Medical History: Reports: Gastroesophageal Reflux Disease, Hiatal Hernia Musculoskeltal Medical History: Reports: Arthritis Psychiatric Medical History: Reports: Post Traumatic Stress Disorder Hematology: Reports: Anemia Past Surgical History Past Surgical History: Reports: Appendectomy, Orthopedic Surgery - R shoulder, Other - Minal's fundoplication Social History Smoking Status: Current Every Day Smoker Frequency of Alcohol Use: Rare - A couple of beers twice a month Hx Recreational Drug Use: No Drugs: None Hx Prescription Drug Abuse: No - Advance Directive Resuscitation Status: Full Code Surrogate healthcare decision maker:: Family History Family History: Arthritis, CAD, CVA, DM, Hyperlipidemia, Hypertension, Malignancy, Thyroid Disfunction Parental Family History Reviewed: Yes Children Family History Reviewed: Yes Sibling(s) Family History Reviewed.: Yes Review of Systems Constitutional: PRESENT: chills. ABSENT: fever(s), headache(s), weight gain, weight loss Eyes: ABSENT: visual disturbances Ears: ABSENT: hearing changes Nose, Mouth, and Throat: PRESENT: mouth pain - After teeth being pulled Cardiovascular: ABSENT: chest pain, dyspnea on exertion, edema, orthropnea, palpitations Respiratory: ABSENT: cough, dyspnea, hemoptysis, sputum Gastrointestinal: PRESENT: nausea. ABSENT: abdominal pain, constipation, diarrhea, hematemesis, hematochezia, melena, vomiting Genitourinary: ABSENT: dysuria, hematuria Musculoskeletal: ABSENT: joint swelling Integumentary: PRESENT: rash Neurological: ABSENT: abnormal gait, abnormal speech, confusion, dizziness, focal weakness, syncope Psychiatric: ABSENT: anxiety, depression, homidical ideation, suicidal ideation Endocrine: ABSENT: cold intolerance, heat intolerance, polydipsia, polyuria Hematologic/Lymphatic: ABSENT: easy bleeding, easy bruising Physical Exam Vital Signs: Temp Pulse Resp BP Pulse Ox 98.6 F 128 H 16 124/81 100 06/11/17 14:44 06/11/17 14:44 06/11/17 14:44 06/11/17 14:44 06/11/17 14:44 General appearance: PRESENT: no acute distress, well-developed, well-nourished Head exam: PRESENT: atraumatic, normocephalic Eye exam: PRESENT: conjunctiva pink, EOMI, PERRLA. ABSENT: scleral icterus Ear exam: PRESENT: normal external ear exam Mouth exam: PRESENT: dry mucosa, neck supple, tongue midline Teeth exam: PRESENT: poor dentation Neck exam: ABSENT: JVD, lymphadenopathy, thyromegaly, tracheal deviation Respiratory exam: PRESENT: clear to auscultation sal. ABSENT: rales, rhonchi, wheezes Cardiovascular exam: PRESENT: RRR, +S1, +S2, tachycardia. ABSENT: diastolic murmur, rubs, systolic murmur Pulses: PRESENT: normal dorsalis pedis pul Vascular exam: PRESENT: normal capillary refill GI/Abdominal exam: PRESENT: normal bowel sounds, soft. ABSENT: distended, guarding, mass, organolmegaly, rebound, tenderness Rectal exam: PRESENT: deferred Extremities exam: PRESENT: full ROM. ABSENT: calf tenderness, clubbing, pedal edema Neurological exam: PRESENT: alert, awake, oriented to person, oriented to place , oriented to time, oriented to situation, CN II-XII grossly intact. ABSENT: motor sensory deficit Psychiatric exam: PRESENT: appropriate affect, normal mood. ABSENT: homicidal ideation, suicidal ideation Skin exam: PRESENT: dry, rash - Violaceous rash on the medial aspect of his left upper extremity, no bulla, well-healing areas of biopsy and prior bulla., warm. ABSENT: cyanosis Results Laboratory Results: 06/11/17 06/11/17 06/11/17 19:08 19:08 19:08 WBC 8.2 Hgb 14.4 Hct 41.0 Plt Count 327 Seg Neutrophils % 66.5 ESR 12 Sodium 139.2 Potassium 3.4 L Chloride 97 L Carbon Dioxide 31 H Anion Gap 11 BUN 11 Creatinine 1.15 Glucose 122 H Calcium 9.9 Magnesium Total Bilirubin 0.7 Direct Bilirubin 0.2 AST 23 ALT 23 Alkaline Phosphatase 59 Creatine Kinase 90 Total Protein 8.1 Albumin 5.0 06/11/17 19:08 WBC Hgb Hct Plt Count Seg Neutrophils % ESR Sodium Potassium Chloride Carbon Dioxide Anion Gap BUN Creatinine Glucose Calcium Magnesium 2.1 Total Bilirubin Direct Bilirubin AST ALT Alkaline Phosphatase Creatine Kinase Total Protein Albumin Status: Imported from [facility] Qual[facility] BEING DISCHARGED WITH ANY OF THE FOLLOWING DIAGNOSIS?: No Assessment & Plan - Time Time Spent: 50 to 70 Minutes Medications reviewed and adjusted accordingly: Yes - Plan Summary Plan Summary: Patient left AGAINST MEDICAL ADVICE prior to the completion of his evaluation.
[2017-06-11 23:19] LABS: URINE AMPHETAMINES SCREEN NEGATIVE; URINE BARBITURATES SCREEN NEGATIVE; URINE BENZODIAZEPINES SCREEN NEGATIVE; URINE COCAINE SCREEN NEGATIVE; URINE MARIJUANA (THC) SCREEN NEGATIVE; URINE METHADONE SCREEN NEGATIVE; URINE PHENCYCLIDINE SCREEN NEGATIVE
[2017-06-12] MEDS ORDERED: LANSOPRAZOLE 30 MG TAB.RAP.DR PO SCH (06:00)
--- NOTE | 2017-06-12 07:49 | EKG REPORT ---
SEVERITY:- BORDERLINE ECG - SINUS RHYTHM BORDERLINE T ABNORMALITIES, ANT-LAT LEADS BORDERLINE PROLONGED QT INTERVAL : Confirmed by: Emiliano Lopez MD 12-Jun-2017 07:48:08
[2017-06-12] MEDS ORDERED: ENOXAPARIN SODIUM INJ 40 MG/0.4 ML DISP.SYRIN SUBCUT SCH (10:00)
[2017-06-12] MEDS ORDERED: PINDOLOL 10 MG PO SCH (10:00)
== END 2017-06-11 23:03 | disposition left against medical advice (07) ==
LOC: ER 14:38 → UNDOADMIN 21:13 → EH 21:13 → ER 23:03
DX: L03.114 Cellulitis of left upper limb (principal); R21 Rash and other nonspecific skin eruption; Z79.899 Other long term (current) drug therapy; F17.200 Nicotine dependence, unspecified, uncomplicated
CPT/HCPCS: 99284; 96365; 36415; 87040; 82550; 83735; 85025; 85652; 80053; 81001; 80307; 93005; 93010; J1885; J1650; J7030; J3370

== ENCOUNTER 2017-08-05 16:24 | Emergency (ER) | payer OTHER ==
--- NOTE | 2017-08-05 17:20 | RADIOLOGY REPORT (SQ) ---
EXAM DESCRIPTION: KNEE LEFT 4 VIEW COMPLETED DATE/TIME: 08/05/2017 5:05 pm REASON FOR STUDY: pain, swelling COMPARISON: None. NUMBER OF VIEWS: Four views. TECHNIQUE: AP, lateral, and both oblique radiographic images acquired of the left knee. LIMITATIONS: None. FINDINGS: MINERALIZATION: Normal. BONES: No acute fracture or dislocation. No worrisome bone lesions. JOINT: No effusion. SOFT TISSUES: No soft tissue swelling. No radio-opaque foreign body. OTHER: No other significant finding. IMPRESSION: NEGATIVE STUDY OF THE LEFT KNEE. NO RADIOGRAPHIC EVIDENCE OF ACUTE INJURY. TECHNICAL DOCUMENTATION: JOB ID: [id number] [employer]- All Rights Reserved Reading location - IP/workstation name: [email or web address]
[2017-08-05] MEDS ORDERED: DEXAMETHASONE SOD PHOS INJ 10 MG/1 ML VIAL IM ONE (17:52)
[2017-08-05] MEDS ORDERED: KETOROLAC TROMETHAMINE INJ/PF 30 MG/1 ML SDV IM ONE (17:52)
--- NOTE | 2017-08-05 17:53 | ER Document Report ---
HPI - HPI Patient complains to provider of: left knee pain Pain Level: 4 Context: Patient is a 32-year-old male who presents emergency department with a chief complaint of left knee pain. Patient states that this happened 4 days ago he was jumping off the back strap and he feels like he landed on it wrong. Admits to pain worse on medial aspect of the left knee. Denies any swelling. States he is able to flex and extend the knee but is painful. Able to bear weight but painful. Was seen in urgent care 2 days ago and given diclofenac and told to utilize crutches. Patient states that he has not been using his crutches. Came here today for an x-ray of his knee and for a steroid shot. Patient states that he intends to follow-up with orthopedics - CONSTITUTIONAL Constitutional: DENIES: Fever, Chills - REPRODUCTIVE Reproductive: DENIES: : Past Medical History - Social History Smoking Status: Never Smoker Chew tobacco use (# tins/day): No Frequency of alcohol use: None Drug Abuse: None Family History: Arthritis, CAD, CVA, DM, Hyperlipidemia, Hypertension, Malignancy, Thyroid Disfunction Patient has suicidal ideation: No Patient has homicidal ideation: No - Past Medical History Cardiac Medical History: Reports: Hx Coronary Artery Disease - CARDIAC CATH/ LOOP RECORDER/ ABLATION X 2, Hx Heart Attack - X 3 Pulmonary Medical History: Reports: Hx Pneumonia Neurological Medical History: Reports: Hx Seizures - 2012- COMA FOR ONE WEEK- MEDICATION INDUCED Renal/ Medical History: Reports: Hx Kidney Stones - 23 stones. Denies: Hx Peritoneal Dialysis GI Medical History: Reports: Hx Gastritis, Hx Gastroesophageal Reflux Disease, Hx Hiatal Hernia, Hx Endoscopy Musculoskeltal Medical History: Reports Hx Arthritis, Reports Hx Musculoskeletal Deformity, Reports Hx Musculoskeletal Trauma Skin Medical History: Reports Hx Cellulitis Psychiatric Medical History: Reports: Hx Anxiety, Hx Post Traumatic Stress Disorder Past Surgical History: Reports: Hx Abdominal Surgery - hernia repair, Minal Fundoplication, partial esophagectomy, Hx Appendectomy, Hx Cardiac Surgery - 2X ablation, Hx Inguinal Hernia - 2, Hx Orthopedic Surgery - R shoulder, Other - Minal's fundoplication with esophagectomy. - Immunizations Immunizations up to date: Yes Hx Diphtheria, Pertussis, Tetanus Vaccination: Yes - 09/24/2015 Hx Pneumococcal Vaccination: 01/01/14 Vertical Provider Document - CONSTITUTIONAL Agree With Documented VS: Yes Notes: PHYSICAL EXAM GENERAL: Alert, interacts well. EXTREMITIES: Moves all 4 extremities spontaneously. No edema, radial and dorsalis pedis pulses 2/4 bilaterally. No cyanosis. Left knee With positive Apley test and axial loading with significant pain in the medial knee. Negative drawer testing. cap Refill less than 2 seconds in bilateral lower extremity digits NEUROLOGICAL: Alert and oriented x4. Normal speech. PSYCH: Normal affect, normal mood. SKIN: Warm, dry, normal turgor. No rashes or lesions noted. - INFECTION CONTROL TRAVEL OUTSIDE OF THE [place] IN LAST 30 DAYS: No - RESPIRATORY O2 Sat by Pulse Oximetry: 98 Course - Re-evaluation Re-evalutation: 08/05/17 17:49 Patient is a 32-year-old male is hemodynamically stable, no acute distress and afebrile. Presentation is consistent with an internal knee injury likely related to the medial meniscus. No evidence of a septic joint, gout flare, dislocation, or fracture on exam and imaging. Vitals wnl. At this time, I do not see an indication for labs or further imaging. Will discharge with conservative measures, return precautions, and follow-up recommendations. - Vital Signs Vital signs: Temp Pulse Resp BP Pulse Ox 98.7 F 127 H 18 112/92 H 98 08/05/17 16:35 08/05/17 16:35 08/05/17 16:35 08/05/17 16:35 08/05/17 16:35 - Diagnostic Test Radiology reviewed: Image reviewed, Reports reviewed Discharge - Discharge Clinical Impression: Left knee pain Qualifiers: Chronicity: acute Qualified Code(s): M25.562 - Pain in left knee Condition: Good Disposition: HOME, SELF-CARE Instructions: Use of Crutches ([facility]), Ice & Elevation ([facility]), Suspected Internal Knee Injury ([facility]) Additional Instructions: You do not have evidence of a fracture on today's xrays. Your pain is likely to do soft tissue swelling and inflammation. This can last up to 6 weeks before completely resolving. You should continue to apply ice to the area regularly, keep the affected area elevated, and take ibuprofen 600mg every 6 hours as needed for pain. Please return if you have worsening pain, weakness, numbness, notice increasing redness or swelling to the area, develop a fever, or have any other symptoms that are concerning to you. [facility] Address: [facility], [place] [address] [facility] Address: [address], [place] [address]
[2017-08-05 18:03] VITALS: BP 115/94
== END 2017-08-05 18:39 | disposition home or self-care (01) ==
LOC: ER 16:24
DX: M25.562 Pain in left knee (principal); I25.10 Atherosclerotic heart disease of native coronary artery without angina pectoris; I25.2 Old myocardial infarction
CPT/HCPCS: 99283; 96372; 73562; J1885; J1100

== ENCOUNTER → 2017-08-08 | Outpatient (CLI) | payer SELFPAY ==
--- NOTE | 2017-08-08 11:26 | RADIOLOGY REPORT (SQ) ---
EXAM DESCRIPTION: MRI LT LOWER JOINT WITHOUT COMPLETED DATE/TIME: 08/08/2017 8:07 am REASON FOR STUDY: PERIPHERAL TEAR OF MEDIAL MENISCUS, CURRET INJURY, LT KNEE (S83.222A) S83.222A NE PH TEAR OF MEDIAL MENISCUS, CURRENT INJURY, L KNE COMPARISON: Plain radiograph TECHNIQUE: Leftknee images acquired and stored on PACS. Multiplanar images include fat sensitive se quences as T1, water sensitive sequences as FST2 or STIR, cartilage sensitive sequences as FSPD, and gradient echo sequences. LIMITATIONS: None. FINDINGS: JOINT AND BURSAE: Small joint effusion. No popliteal cyst. BONE CORTEX AND MARROW: No alteration of signal to suggest marrow replacement. No worrisome bone lesi ons. No occult fracture. ACL: Intact. No degeneration or ganglion cyst. PCL: Intact. MCL: Intact. No periligamentous edema or fluid. LCL: Intact. No periligamentous edema or fluid. MEDIAL MENISCUS: There is a medial parameniscal cyst which communicates with the joint via a tear of the superior meniscus mid meniscus. There is also a posterior intra meniscal cyst with a small shannon eniscal cyst. LATERAL MENISCUS: No tears. No abnormal signal. MEDIAL COMPARTMENT: Cartilage preserved. No bone bruises or reactive marrow edema. No osteophytes. LATERAL COMPARTMENT: Cartilage preserved. No bone bruises or reactive marrow edema. No osteophytes. PATELLA: No chondromalacia. No subchondral cysts. Medial and lateral retinacula intact. EXTENSOR MECHANISM: Intact. Quadriceps and patella tendons normal. SOFT TISSUES: Adjacent muscles and subcutaneous tissues normal. Normal flow void in popliteal artery and vein. OTHER: No other significant finding. IMPRESSION: Complex pathology of the medial meniscus with a superior mid meniscal flap tear. Medial ly there is a parameniscal cysts which communicates. Posteriorly there is a multilocular intramenisc al cyst is well is an adjacent parameniscal cyst. Joint effusion without popliteal cyst. COMMENT: 2 TECHNICAL DOCUMENTATION: JOB ID: [id number] [employer]- All Rights Reserved Reading location - IP/workstation name: [email or web address]
== END ==
LOC: RAD 07:13
PROVIDERS: ATTEND Orthopaedic Surgery
DX: S83.222A Peripheral tear of medial meniscus, current injury, left knee, initial encounter (principal); X58.XXXA Exposure to other specified factors, initial encounter

== ENCOUNTER → 2017-08-12 | Outpatient (CLI) | payer BC ==
[2017-08-12 16:13] LABS: ABSOLUTE BASOPHILS # (AUTO) 0.1 10^3/uL (0.0-0.2); ABSOLUTE EOSINOPHILS # (AUTO) 0.1 10^3/uL (0.0-0.6); ABSOLUTE LYMPHOCYTES (AUTO) 1.7 10^3/uL (0.5-4.7); ABSOLUTE MONOCYTES (AUTO) 0.4 10^3/uL (0.1-1.4); EOSINOPHILS % (AUTO) 0.9 % (0-6); HEMATOCRIT 40.3 % (37.9-51.0); HEMOGLOBIN 13.9 g/dL (13.5-17.0); LYMPHOCYTES % (AUTO) 20.3 % (13-45); MEAN CORPUSCULAR HEMOGLOBIN 29.2 pg (27.0-33.4); MEAN CORPUSCULAR HGB CONC 34.4 g/dL (32.0-36.0); MEAN CORPUSCULAR VOLUME 85 fl (80-97); MONOCYTES % (AUTO) 5.2 % (3-13); PLATELET COUNT 361 10^3/uL (150-450); RED BLOOD COUNT 4.75 10^6/uL (4.35-5.55); RED CELL DISTRIBUTION WIDTH 13.4 % (11.5-14.0); SEGMENTED NEUTROPHILS % (AUTO) 72.6 % (42-78); TOTAL CELLS COUNTED % (AUTO) 100 %; WHITE BLOOD COUNT 8.3 10^3/uL (4.0-10.5)
[2017-08-12 16:41] LABS: ANION GAP 13 (5-19); BLOOD UREA NITROGEN 13 mg/dL (7-20); CARBON DIOXIDE 26 mmol/L (22-30); CHLORIDE 101 mmol/L (98-107); GLUCOSE 84 mg/dL (75-110); POTASSIUM 3.9 mmol/L (3.6-5.0)
--- NOTE | 2017-08-12 16:47 | RADIOLOGY REPORT (SQ) ---
EXAM DESCRIPTION: CHEST PA/LATERAL COMPLETED DATE/TIME: 08/12/2017 3:39 pm REASON FOR STUDY: PRE OP COMPARISON: 09/27/2016 EXAM PARAMETERS: NUMBER OF VIEWS: two views TECHNIQUE: Digital Frontal and Lateral radiographic views of the chest acquired. RADIATION DOSE: NA LIMITATIONS: none FINDINGS: LUNGS AND PLEURA: No opacities, masses or pneumothorax. No pleural effusion. MEDIASTINUM AND HILAR STRUCTURES: No masses or contour abnormalities. HEART AND VASCULAR STRUCTURES: Heart normal size. No evidence for failure. BONES: No acute findings. HARDWARE: None in the chest. OTHER: No other significant finding. IMPRESSION: NO SIGNIFICANT RADIOGRAPHIC FINDING IN THE CHEST. TECHNICAL DOCUMENTATION: JOB ID: [id number] [employer]- All Rights Reserved Reading location - IP/workstation name: [email or web address]
--- NOTE | 2017-08-12 18:57 | EKG REPORT ---
SEVERITY:- BORDERLINE ECG - SINUS RHYTHM BORDERLINE T WAVE ABNORMALITIES : Confirmed by: Emiliano Lopez MD 12-Aug-2017 18:57:02
== END ==
LOC: OD 14:59
PROVIDERS: ATTEND Orthopaedic Surgery
DX: Z01.818 Encounter for other preprocedural examination (principal)
CPT/HCPCS: 36415; 71046; 80048; 85025; 93005; 93010

== ENCOUNTER 2017-11-19 11:54 | Emergency (ER) | payer OTHER ==
[2017-11-19] MEDS ORDERED: KETOROLAC TROMETHAMINE 60 MG/2 ML SDV IM ONE (12:15)
--- NOTE | 2017-11-19 12:18 | ER Document Report ---
HPI - HPI Patient complains to provider of: right shoulder injury Onset: Other - Saturday Onset/Duration: Sudden Quality of pain: Achy, Throbbing Severity: Moderate Pain Level: 4 Context: Patient was riding a bull and fell landing on his right shoulder on Saturday. Patient does have a history of orthopedic surgery on that shoulder for rotator cuff tears. Associated Symptoms: None Exacerbated by: Movement Relieved by: Denies Similar symptoms previously: Yes Recently seen / treated by doctor: No - ROS ROS below otherwise negative: Yes Systems Reviewed and Negative: Yes All other systems reviewed and negative - CONSTITUTIONAL Constitutional: DENIES: Fever - EENT EENT: DENIES: Congestion - NEURO Neurology: DENIES: Headache - CARDIOVASCULAR Cardiovascular: DENIES: Chest pain - RESPIRATORY Respiratory: DENIES: Trouble Breathing - MUSCULOSKELETAL Musculoskeletal: REPORTS: Extremity pain - Right shoulder - DERM Skin Color: Normal Past Medical History - General Information source: Patient - Social History Smoking Status: Never Smoker Frequency of alcohol use: Rare Drug Abuse: None Lives with: Spouse/Significant other Family History: Arthritis, CAD, CVA, DM, Hyperlipidemia, Hypertension, Malignancy, Thyroid Disfunction - Past Medical History Cardiac Medical History: Reports: Hx Coronary Artery Disease - CARDIAC CATH/ LOOP RECORDER/ ABLATION X 2, Hx Heart Attack - X 3 Pulmonary Medical History: Reports: Hx Pneumonia Neurological Medical History: Reports: Hx Seizures - 2012- COMA FOR ONE WEEK- MEDICATION INDUCED Renal/ Medical History: Reports: Hx Kidney Stones - 23 stones GI Medical History: Reports: Hx Gastritis, Hx Gastroesophageal Reflux Disease, Hx Hiatal Hernia, Hx Endoscopy Musculoskeltal Medical History: Reports Hx Arthritis, Reports Hx Musculoskeletal Deformity, Reports Hx Musculoskeletal Trauma Skin Medical History: Reports Hx Cellulitis Psychiatric Medical History: Reports: Hx Anxiety, Hx Post Traumatic Stress Disorder Past Surgical History: Reports: Hx Abdominal Surgery - hernia repair, Minal Fundoplication, partial esophagectomy, Hx Appendectomy, Hx Cardiac Surgery - 2X ablation, Hx Inguinal Hernia - 2, Hx Orthopedic Surgery - R shoulder, Other - Minal's fundoplication with esophagectomy. - Immunizations Immunizations up to date: Yes Hx Diphtheria, Pertussis, Tetanus Vaccination: Yes - 09/24/2015 Hx Pneumococcal Vaccination: 06/03/13 Vertical Provider Document - CONSTITUTIONAL Agree With Documented VS: Yes Exam Limitations: No Limitations General Appearance: WD/WN - INFECTION CONTROL TRAVEL OUTSIDE OF THE [place] IN LAST 30 DAYS: No - HEENT HEENT: Atraumatic, Normocephalic, PERRLA - NECK Neck: Normal Inspection, Supple - RESPIRATORY Respiratory: Breath Sounds Normal, No Respiratory Distress, Chest Non-Tender - CARDIOVASCULAR Cardiovascular: Regular Rate - MUSCULOSKELETAL/EXTREMETIES Musculoskeletal/Extremeties: Tender - Right AC joint and across right scapula. Patient has decreased range of motion wit extending right arm above head, and placing right arm behind his back., No Edema. negative: Eccymosis - NEURO Level of Consciousness: Awake, Alert, Appropriate - DERM Integumentary: Warm, Dry Course - Re-evaluation Re-evalutation: 11/19/17 13:16 X-rays negative and discussed with patient. - Vital Signs Vital signs: Temp Pulse Resp BP Pulse Ox 98.4 F 97 16 118/81 100 11/19/17 12:01 11/19/17 12:01 11/19/17 12:01 11/19/17 12:01 11/19/17 12:01 Discharge - Discharge Clinical Impression: Contusion of right shoulder Qualifiers: Encounter type: initial encounter Qualified Code(s): S40.011A - Contusion of right shoulder, initial encounter Condition: Good Disposition: HOME, SELF-CARE Instructions: Pain Medication Injection ([facility]) Additional Instructions: Ibuprofen or Aleve for pain Ice or heat packs to area Follow-up with your primary care doctor if not better in 1 week, may need orthopedic referral Return as needed Referrals: DION RODRIGUEZ MD [ACTIVE STAFF] - Follow up as needed
--- NOTE | 2017-11-19 13:12 | RADIOLOGY REPORT (SQ) ---
EXAM DESCRIPTION: SHOULDER RIGHT 2 OR MORE VIEWS COMPLETED DATE/TIME: 11/19/2017 12:35 pm REASON FOR STUDY: fall injury COMPARISON: 05/31/2015 NUMBER OF VIEWS: Three views. TECHNIQUE: Internal rotation, external rotation, and Y view images acquired of the right shoulder. LIMITATIONS: None. FINDINGS: MINERALIZATION: Normal. BONES: No acute fracture or dislocation. No worrisome bone lesions. JOINTS: No dislocation. VISUALIZED LUNGS AND RIBS: No pneumothorax. No rib fracture. SOFT TISSUES: No radiopaque foreign body. OTHER: Orthopedic anchor from previous rotator cuff repair IMPRESSION: NEGATIVE STUDY OF THE RIGHT SHOULDER. NO RADIOGRAPHIC EVIDENCE OF ACUTE INJURY. TECHNICAL DOCUMENTATION: JOB ID: [id number] [employer]- All Rights Reserved Reading location - IP/workstation name: [email or web address]
[2017-11-19 13:30] VITALS: BP 120/85
== END 2017-11-19 13:30 | disposition home or self-care (01) ==
LOC: ER 11:54
DX: S40.011A Contusion of right shoulder, initial encounter (principal); V80.018A Animal-rider injured by fall from or being thrown from other animal in noncollision accident, initial encounter; I25.10 Atherosclerotic heart disease of native coronary artery without angina pectoris; I25.2 Old myocardial infarction; Z87.442 Personal history of urinary calculi
CPT/HCPCS: 99283; 96372; 73030; J1885

== ENCOUNTER → 2017-11-22 | Outpatient (CLI) | payer SELFPAY ==
--- NOTE | 2017-11-23 15:26 | RADIOLOGY REPORT (SQ) ---
EXAM DESCRIPTION: MRI RT LOWER JOINT WITHOUT COMPLETED DATE/TIME: 11/22/2017 9:02 pm REASON FOR STUDY: M25.461 EFFUSION, RIGHT KNEE M25.461 EFFUSION, RIGHT KNEE COMPARISON: None. TECHNIQUE: Rightknee images acquired and stored on PACS. Multiplanar images include fat sensitive s equences as T1, water sensitive sequences as FST2 or STIR, cartilage sensitive sequences as FSPD, and gradient echo sequences. LIMITATIONS: None. FINDINGS: JOINT AND BURSAE: No effusion. BONE CORTEX AND MARROW: No alteration of signal to suggest marrow replacement. No worrisome bone lesi ons. No occult fracture. ACL: Intact. PCL: Intact. MCL: Intact. LCL: Intact. MEDIAL MENISCUS: Suspect subtle tear in the posterior root and posterior horn extending to the inferi or articular surface. No significant extrusion, however. LATERAL MENISCUS: No tears. No abnormal signal. MEDIAL COMPARTMENT: Cartilage preserved. No bone bruises or reactive marrow edema. No osteophytes. LATERAL COMPARTMENT: Cartilage preserved. No bone bruises or reactive marrow edema. No osteophytes. PATELLA: No chondromalacia. No subchondral cysts. Medial and lateral retinacula intact. EXTENSOR MECHANISM: Intact. Quadriceps and patella tendons normal. SOFT TISSUES: Appropriate vascular flow voids. In Hoffa's fat pad, heterogeneous hyperintense T2 sig nal measuring at least 3 cm transverse dimension. Unclear if this represents ganglion or posttraumat ic change related to recent fall (Possibly deep soft tissue hematoma/laceration). OTHER: No other significant finding. IMPRESSION: 1. Potential posttraumatic changes in Hoffa's fat pad. 2. Medial meniscus tear suspec leatha. 3. No other internal derangement appreciated. TECHNICAL DOCUMENTATION: JOB ID: [id number] [employer]- All Rights Reserved Reading location - IP/workstation name: [email or web address]
== END ==
LOC: RAD 19:59
PROVIDERS: ATTEND Orthopaedic Surgery Sports Medicine
DX: M25.461 Effusion, right knee (principal)

== ENCOUNTER → 2017-12-13 | Outpatient (CLI) | payer OTHER ==
[2017-12-13 13:09] LABS: ABSOLUTE EOSINOPHILS # (AUTO) 0.1 10^3/uL (0.0-0.6); ABSOLUTE LYMPHOCYTES (AUTO) 1.4 10^3/uL (0.5-4.7); ABSOLUTE MONOCYTES (AUTO) 0.3 10^3/uL (0.1-1.4); ABSOLUTE NEUT (AUTO) 3.4 10^3/uL (1.7-8.2); BASOPHILS % (AUTO) 0.8 % (0-2); EOSINOPHILS % (AUTO) 1.9 % (0-6); HEMATOCRIT 40.2 % (37.9-51.0); HEMOGLOBIN 13.8 g/dL (13.5-17.0); MEAN CORPUSCULAR HEMOGLOBIN 29.4 pg (27.0-33.4); MEAN CORPUSCULAR HGB CONC 34.3 g/dL (32.0-36.0); MEAN CORPUSCULAR VOLUME 86 fl (80-97); MONOCYTES % (AUTO) 6.3 % (3-13); PLATELET COUNT 302 10^3/uL (150-450); RED BLOOD COUNT 4.68 10^6/uL (4.35-5.55); RED CELL DISTRIBUTION WIDTH 13.8 % (11.5-14.0); TOTAL CELLS COUNTED % (AUTO) 100 %; WHITE BLOOD COUNT 5.3 10^3/uL (4.0-10.5)
[2017-12-13 13:29] LABS: ALANINE AMINOTRANSFERASE 15 U/L (21-72); ALBUMIN 4.2 g/dL (3.5-5.0); ALKALINE PHOSPHATASE 59 U/L (38-126); ANION GAP 13 (5-19); ASPARTATE AMINO TRANSFERASE 16 U/L (17-59); BILIRUBIN,DIRECT 0.3 mg/dL (0.0-0.4); BILIRUBIN,TOTAL 0.5 mg/dL (0.2-1.3); BLOOD UREA NITROGEN 12 mg/dL (7-20); CALCIUM 9.5 mg/dL (8.4-10.2); CARBON DIOXIDE 32 mmol/L (22-30); CHLORIDE 100 mmol/L (98-107); GLUCOSE 55 mg/dL (75-110); POTASSIUM 4.2 mmol/L (3.6-5.0); SODIUM 144.6 mmol/L (137-145); TOTAL PROTEIN 7.2 g/dL (6.3-8.2)
== END ==
LOC: OD 11:42
PROVIDERS: ATTEND Orthopaedic Surgery
DX: Z11.2 Encounter for screening for other bacterial diseases (principal); I10 Essential (primary) hypertension
CPT/HCPCS: 36415; 80053; 85025; 87070

== ENCOUNTER 2018-01-13 13:20 | Emergency (ER) | payer OTHER ==
[2018-01-13] MEDS ORDERED: ONDANSETRON HCL INJ/PF 4 MG/2 ML SDV IV ONE (13:32)
[2018-01-13] MEDS ORDERED: KETOROLAC TROMETHAMINE INJ/PF 30 MG/1 ML SDV IV ONE (13:32)
[2018-01-13] MEDS ORDERED: NORMAL SALINE 1000 ML 1,000 ML IV ONE (13:33)
--- NOTE | 2018-01-13 13:35 | ER Document Report ---
ED Medical Screen (RME) - General Chief Complaint: Flank Pain Stated Complaint: BLOOD IN URINE Time Seen by Provider: 01/13/18 13:30 Notes: 32-year-old male with a history of kidney stones presents with sudden onset of right flank pain starting last night. Patient stated this does feel similar to prior kidney stones last kidney stone was in 2013. Describes severe 10 out of 10 pain in his right flank rating to his right lower quadrant of his abdomen. Denies testicular pain denies hematuria or dysuria. Denies chest pain or shortness of breath. States the pain has become severe and he presents here to the ER. TRAVEL OUTSIDE OF THE [place] IN LAST 30 DAYS: No - Related Data Allergies/Adverse Reactions: ciprofloxacin [From Cipro] Allergy (Severe, Verified 01/13/18 13:23) Shortness of Breath gadoteridol [From Prohance] Allergy (Severe, Verified 01/13/18 13:23) Shortness of Breath hyoscyamine sulfate [From Levsin] Allergy (Severe, Verified 01/13/18 13:23) Shortness of Breath Iodinated Contrast- Oral and IV Dye Allergy (Severe, Verified 01/13/18 13:23) metoclopramide HCl [From Reglan] Allergy (Severe, Verified 01/13/18 13:23) Shortness of Breath promethazine HCl [From Phenergan] Allergy (Severe, Verified 01/13/18 13:23) Shortness of Breath Penicillins Allergy (Verified 01/13/18 13:23) piperacillin [From Zosyn] Adverse Reaction (Verified 01/13/18 13:23) tazobactam [From Zosyn] Adverse Reaction (Verified 01/13/18 13:23) Past Medical History - Past Medical History Cardiac Medical History: Reports: Hx Coronary Artery Disease - CARDIAC CATH/ LOOP RECORDER/ ABLATION X 2, Hx Heart Attack - X 3 Pulmonary Medical History: Reports: Hx Pneumonia Neurological Medical History: Reports: Hx Seizures - 2012- COMA FOR ONE WEEK- MEDICATION INDUCED Renal/ Medical History: Reports: Hx Kidney Stones - 23 stones. Denies: Hx Peritoneal Dialysis GI Medical History: Reports: Hx Gastritis, Hx Gastroesophageal Reflux Disease, Hx Hiatal Hernia, Hx Endoscopy Musculoskeltal Medical History: Reports Hx Arthritis, Reports Hx Musculoskeletal Deformity, Reports Hx Musculoskeletal Trauma Skin Medical History: Reports Hx Cellulitis Psychiatric Medical History: Reports: Hx Anxiety, Hx Post Traumatic Stress Disorder Past Surgical History: Reports: Hx Abdominal Surgery - hernia repair, Minal Fundoplication, partial esophagectomy, Hx Appendectomy, Hx Cardiac Surgery - 2X ablation, Hx Inguinal Hernia - 2, Hx Orthopedic Surgery - R shoulder, Other - Minal's fundoplication with esophagectomy. - Immunizations Immunizations up to date: Yes Hx Diphtheria, Pertussis, Tetanus Vaccination: Yes - 09/24/2015 History of Influenza Vaccine for 03/2017 - 08/2017 Season: No Review of Systems - Review of Systems Cardiovascular: denies: Chest pain Respiratory: denies: Cough Gastrointestinal: Abdominal pain, Nausea, Vomiting Genitourinary: denies: Burning, Dysuria, Flank pain, Hematuria Musculoskeletal: Back pain Skin: denies: Rash -: Yes All other systems reviewed and negative Physical Exam - Vital signs Vitals: Temp Pulse Resp BP Pulse Ox 98.6 F 126 H 20 135/113 H 99 01/13/18 13:25 01/13/18 13:25 01/13/18 13:25 01/13/18 13:25 01/13/18 13:25 - Notes Notes: Abdomen is soft and supple there is some right lower quadrant tenderness but no rebound or guarding. Rovsing sign negative operating psoas sign negative positive right CVA tenderness noted Course - Re-evaluation Re-evalutation: 01/13/18 13:35 Nausea right flank pain rating to the right lower quadrant with a history of appendectomy. My suspicion is that this is likely a kidney stone because of the sudden nature of this. Pyelonephritis is also consideration will check fluid urinalysis and get a CT scan. - Vital Signs Vital signs: Temp Pulse Resp BP Pulse Ox 98.6 F 126 H 20 135/113 H 99 01/13/18 13:25 01/13/18 13:25 01/13/18 13:25 01/13/18 13:25 01/13/18 13:25 Doctor's Discharge - Discharge Referrals: BEN MORENO MD [Primary Care Provider] - Follow up as needed
[2018-01-13] MEDS ORDERED: DIPHENHYDRAMINE HCL 50 MG/ML VIAL IV ONE (14:51)
[2018-01-13 15:19] LABS: ABSOLUTE LYMPHOCYTES (AUTO) 1.4 10^3/uL (0.5-4.7); ABSOLUTE MONOCYTES (AUTO) 0.4 10^3/uL (0.1-1.4); ABSOLUTE NEUT (AUTO) 5.4 10^3/uL (1.7-8.2); BASOPHILS % (AUTO) 0.6 % (0-2); EOSINOPHILS % (AUTO) 0.6 % (0-6); HEMATOCRIT 41.5 % (37.9-51.0); HEMOGLOBIN 14.1 g/dL (13.5-17.0); MEAN CORPUSCULAR HEMOGLOBIN 29.4 pg (27.0-33.4); MEAN CORPUSCULAR HGB CONC 34.1 g/dL (32.0-36.0); MEAN CORPUSCULAR VOLUME 87 fl (80-97); MONOCYTES % (AUTO) 5.1 % (3-13); PLATELET COUNT 326 10^3/uL (150-450); RED CELL DISTRIBUTION WIDTH 13.9 % (11.5-14.0); SEGMENTED NEUTROPHILS % (AUTO) 74.7 % (42-78); TOTAL CELLS COUNTED % (AUTO) 100 %; WHITE BLOOD COUNT 7.2 10^3/uL (4.0-10.5)
[2018-01-13 15:41] LABS: ALANINE AMINOTRANSFERASE 18 U/L (21-72); ALBUMIN 4.4 g/dL (3.5-5.0); ALKALINE PHOSPHATASE 50 U/L (38-126); ANION GAP 14 (5-19); ASPARTATE AMINO TRANSFERASE 16 U/L (17-59); BILIRUBIN,DIRECT 0.3 mg/dL (0.0-0.4); BILIRUBIN,TOTAL 0.4 mg/dL (0.2-1.3); BLOOD UREA NITROGEN 14 mg/dL (7-20); CALCIUM 9.2 mg/dL (8.4-10.2); CARBON DIOXIDE 25 mmol/L (22-30); CHLORIDE 104 mmol/L (98-107); GLUCOSE 88 mg/dL (75-110); LIPASE 374.9 U/L (23-300); POTASSIUM 4.4 mmol/L (3.6-5.0); SODIUM 142.5 mmol/L (137-145); TOTAL PROTEIN 7.7 g/dL (6.3-8.2)
--- NOTE | 2018-01-13 15:43 | RADIOLOGY REPORT (SQ) ---
EXAM DESCRIPTION: CT ABD/PELVIS NO ORAL OR IV COMPLETED DATE/TIME: 01/13/2018 3:20 pm REASON FOR STUDY: Right Flank Pain COMPARISON: 04/02/2016 TECHNIQUE: CT scan of the abdomen and pelvis performed without intravenous or oral contrast. Images reviewed with lung, soft tissue, and bone windows. Reconstructed coronal and sagittal MPR images revi ewed. All images stored on PACS. All CT scanners at this facility use dose modulation, iterative reconstruction, and/or weight based d osing when appropriate to reduce radiation dose to as low as reasonably achievable (ALARA). [facility]: Dose Right [facility]: CareDose [facility]: Dose Right [facility]: Teradose 4D [facility]: Qwikwire RADIATION DOSE: CT Rad equipment meets quality standard of care and radiation dose reduction techniq ues were employed. CTDIvol: 5.3 - 6.7 mGy. DLP: 644 mGy-cm.mGy. LIMITATIONS: None. FINDINGS: LOWER CHEST: No significant findings. No nodules or infiltrates. NON-CONTRASTED LIVER, SPLEEN, ADRENALS: Evaluation limited by lack of IV contrast. No identified sign ificant masses. PANCREAS: No masses. No peripancreatic inflammatory changes. GALLBLADDER: No identified stones by CT criteria. No inflammatory changes to suggest cholecystitis. RIGHT KIDNEY AND URETER: No suspicious masses. Assessment limited by lack of IV contrast. Renal yunior culi measuring up to about 2 mm. No hydronephrosis or hydroureter. LEFT KIDNEY AND URETER: Stable 1 cm exophytic lesion lateral. No suspicious masses. Assessment limit ed by lack of IV contrast. Renal calculi measuring up to about 1 mm. No hydronephrosis or hydrour eter. AORTA AND RETROPERITONEUM: No aneurysm. No retroperitoneal masses or adenopathy. BOWEL AND PERITONEAL CAVITY: Gas density in the gastroesophageal junction possibly related to fundopl ication or esophageal diverticulum. No obvious masses or inflammatory changes. No free fluid. APPENDIX: Surgically absent. PELVIS, BLADDER, AND ABDOMINAL WALL:No abnormal masses. No free fluid. Bladder normal. BONES: No significant findings. OTHER: No other significant finding. IMPRESSION: Nonobstructing renal calculi. No acute findings. COMMENT: Quality ID # [id number]: Final reports with documentation of one or more dose reduction techniques (e.g., Automated exposure control, adjustment of the mA and/or kV according to patient size, use of iterative reconstruction technique) TECHNICAL DOCUMENTATION: JOB ID: [id number] [employer]- All Rights Reserved Reading location - IP/workstation name: RE[employer]ERATION REPAIR [employer]PER[employer]OR-[email or web address]
[2018-01-13] MEDS ORDERED: HYDROMORPHONE HCL INJ/PF 2 MG/ML AMPULE IV ONE ×2 (16:21→17:08)
[2018-01-13] MEDS ORDERED: MORPHINE SULFATE 10 MG/ML INJ IV ONE (16:49)
[2018-01-13 16:59] LABS: AMORPHOUS SEDIMENT,URINE TRACE /HPF; APPEARANCE,URINE SLIGHTLY-CLOUDY; BILIRUBIN,URINE NEGATIVE (NEGATIVE); COLOR,URINE YELLOW; GLUCOSE, URINE NEGATIVE (NEGATIVE); KETONES,URINE NEGATIVE (NEGATIVE); LEUKOCYTE ESTERASE,URINE TRACE (NEGATIVE); NITRITE,URINE NEGATIVE (NEGATIVE); PROTEIN,URINE NEGATIVE (NEGATIVE); URINE SPECIFIC GRAVITY 1.011; UROBILINOGEN,URINE NEGATIVE mg/dL (<2.0)
--- NOTE | 2018-01-13 17:55 | ER Document Report ---
ED General - General Chief Complaint: Flank Pain Stated Complaint: BLOOD IN URINE Time Seen by Provider: 01/13/18 13:30 TRAVEL OUTSIDE OF THE [place] IN LAST 30 DAYS: No - HPI Notes: 32-year-old male with a history of multiple kidney stones, SVT, GERD presents with right-sided flank pain, nausea, and blood in urine for the past 2 days. He does not currently have a urologist. He has had several stones in the past requiring lithotripsy. Reports occasional burning with urination. No fevers. Patient states pain radiates from right flank to scrotum. Pain feels similar to prior kidney stones. - Related Data Allergies/Adverse Reactions: ciprofloxacin [From Cipro] Allergy (Severe, Verified 01/13/18 13:23) Shortness of Breath gadoteridol [From Prohance] Allergy (Severe, Verified 01/13/18 13:23) Shortness of Breath hyoscyamine sulfate [From Levsin] Allergy (Severe, Verified 01/13/18 13:23) Shortness of Breath Iodinated Contrast- Oral and IV Dye Allergy (Severe, Verified 01/13/18 13:23) metoclopramide HCl [From Reglan] Allergy (Severe, Verified 01/13/18 13:23) Shortness of Breath promethazine HCl [From Phenergan] Allergy (Severe, Verified 01/13/18 13:23) Shortness of Breath Penicillins Allergy (Verified 01/13/18 13:23) piperacillin [From Zosyn] Adverse Reaction (Verified 01/13/18 13:23) tazobactam [From Zosyn] Adverse Reaction (Verified 01/13/18 13:23) Past Medical History - Social History Smoking Status: Never Smoker Chew tobacco use (# tins/day): Yes - 1/2 a avelina Frequency of alcohol use: Occasional Drug Abuse: None Family History: Arthritis, CAD, CVA, DM, Hyperlipidemia, Hypertension, Malignancy, Thyroid Disfunction Patient has suicidal ideation: No Patient has homicidal ideation: No - Past Medical History Cardiac Medical History: Reports: Hx Coronary Artery Disease - CARDIAC CATH/ LOOP RECORDER/ ABLATION X 2, Hx Heart Attack - X 3 Pulmonary Medical History: Reports: Hx Pneumonia Neurological Medical History: Reports: Hx Seizures - 2012- COMA FOR ONE WEEK- MEDICATION INDUCED Renal/ Medical History: Reports: Hx Kidney Stones - 23 stones. Denies: Hx Peritoneal Dialysis GI Medical History: Reports: Hx Gastritis, Hx Gastroesophageal Reflux Disease, Hx Hiatal Hernia, Hx Endoscopy Musculoskeletal Medical History: Reports Hx Arthritis, Reports Hx Musculoskeletal Deformity, Reports Hx Musculoskeletal Trauma Skin Medical History: Reports Hx Cellulitis Psychiatric Medical History: Reports: Hx Anxiety, Hx Post Traumatic Stress Disorder Past Surgical History: Reports: Hx Abdominal Surgery - hernia repair, Minal Fundoplication, partial esophagectomy, Hx Appendectomy, Hx Cardiac Surgery - 2X ablation, Hx Inguinal Hernia - 2, Hx Orthopedic Surgery - R shoulder, Other - Minal's fundoplication with esophagectomy. - Immunizations Immunizations up to date: Yes Hx Diphtheria, Pertussis, Tetanus Vaccination: Yes - 09/24/2015 Hx Pneumococcal Vaccination: 06/03/13 Review of Systems - Review of Systems Notes: Constitutional: Negative for fever. HENT: Negative for sore throat. Eyes: Negative for visual changes. Cardiovascular: Negative for chest pain. Respiratory: Negative for shortness of breath. Gastrointestinal: Positive for abdominal pain and nausea. Negative for vomiting or diarrhea. Genitourinary: Positive for dysuria, hematuria, and right flank pain Musculoskeletal: Positive for back pain. Skin: Negative for new rash. Neurological: Negative for headaches, weakness or numbness. 10 point ROS negative except as marked above and in HPI. Physical Exam - Vital signs Vitals: Temp Pulse Resp BP Pulse Ox 98.6 F 126 H 20 135/113 H 99 01/13/18 13:25 01/13/18 13:25 01/13/18 13:25 01/13/18 13:25 01/13/18 13:25 - Notes Notes: PHYSICAL EXAMINATION: GENERAL: Well-appearing, well-nourished and in no acute distress. HEAD: Atraumatic, normocephalic. EYES: Pupils equal round and reactive to light, extraocular movements intact, conjunctiva are normal. ENT: nares patent, oropharynx clear without exudates. Moist mucous membranes. NECK: Normal range of motion, supple without lymphadenopathy LUNGS: Breath sounds clear to auscultation bilaterally and equal. No wheezes rales or rhonchi. HEART: Regular rhythm, no chest wall tenderness. Tachycardic rate ABDOMEN: Soft, normoactive bowel sounds. No guarding, no rebound. No masses appreciated. Mild right lower quadrant tenderness EXTREMITIES: Normal range of motion, no pitting or edema. No cyanosis. Moderate right CVA tenderness NEUROLOGICAL: Cranial nerves grossly intact. Normal speech, normal gait. Normal sensory and motor exams. PSYCH: Normal mood, normal affect. SKIN: Warm, Dry, normal turgor Course - Re-evaluation Re-evalutation: 01/13/18 17:54 Pain improved. No ureteral stones or hydronephrosis appreciated, but does have bilateral nephrolithiasis. He has large amount of blood and white cells in urine. Possible recently passed stone. Will treat for possible pyelonephritis. Given urology follow-up. At this time will discharge with return precautions and follow-up recommendations. Verbal discharge instructions given a the bedside and opportunity for questions given. Medication warnings reviewed. Patient is in agreement with this plan and has verbalized understanding of return precautions and the need for primary care follow-up in the next 24-72 hours. - Vital Signs Vital signs: Temp Pulse Resp BP Pulse Ox 98.6 F 126 H 20 135/113 H 99 01/13/18 13:25 01/13/18 13:25 01/13/18 13:25 01/13/18 13:25 01/13/18 13:25 - Laboratory Result Diagrams: 01/13/18 15:02 01/13/18 15:02 Laboratory results interpreted by me: 01/13/18 01/13/18 15:02 16:18 Creatinine 1.60 H Est GFR (Non-Af Amer) 51 L AST 16 L ALT 18 L Lipase 374.9 H Urine Blood LARGE H Ur Leukocyte Esterase TRACE H Discharge - Discharge Clinical Impression: Right flank pain, Pyelonephritis Hematuria Qualifiers: Hematuria type: gross Qualified Code(s): R31.0 - Gross hematuria Condition: Fair Disposition: HOME, SELF-CARE Instructions: Pyelonephritis ([facility]) Additional Instructions: Take oral antibiotic. You must follow-up with urologist for further treatment and evaluation. Return for any worsening or concerning symptoms. Hematuria Hematuria, or blood in your urine, can be caused by minor medical problems , such as a bladder infection, or by more serious medical conditions, such as kidney stones or even tumors of the bladder or kidney. If the cause of the hematuria is known (such as a bladder infection) and can be treated, it may not need further evaluation. If the cause is not known, it will usually require further evaluation by a specialist, such as a urologist. In particular, unexplained hematuria in the older patient must be evaluated to rule out a serious condition, such as a bladder or kidney tumor. If the hematuria worsens or you are passing clots and then are unable to urinate, you should be re-evaluated. A catheter may need to be placed in the bladder to permit passage of urine. If you develop high fever, severe pain, or other new or worsening symptoms, return to the Emergency Department for re- evaluation. Prescriptions: Cephalexin Monohydrate [Keflex 500 mg Capsule] 500 mg PO Q6H 7 Days capsule Naproxen 500 mg PO Q12 #20 tablet Referrals: BEN MORENO MD [ASSOCIATE] - Follow up as needed DEMARCUS VALDEZ MD [[facility] COOK] - Follow up as needed
[2018-01-13 18:16] VITALS: BP 117/88
== END 2018-01-13 18:30 | disposition home or self-care (01) ==
LOC: ER 13:20
DX: N12 Tubulo-interstitial nephritis, not specified as acute or chronic (principal); N20.0 Calculus of kidney; R31.0 Gross hematuria; R10.9 Unspecified abdominal pain; R11.0 Nausea; M54.9 Dorsalgia, unspecified; I25.10 Atherosclerotic heart disease of native coronary artery without angina pectoris; I25.2 Old myocardial infarction; Z88.1 Allergy status to other antibiotic agents; Z88.8 Allergy status to other drugs, medicaments and biological substances; Z91.041 Radiographic dye allergy status; Z88.0 Allergy status to penicillin
CPT/HCPCS: 99284; 96374; 96375; 36415; 83690; 85025; 80053; 81001; 74176; J1200; J1885; J1170; J2405; J7030

== ENCOUNTER 2018-01-16 20:53 | Emergency (ER) | payer OTHER ==
[2018-01-16] MEDS ORDERED: KETOROLAC TROMETHAMINE INJ/PF 30 MG/1 ML SDV IV ONE (22:36)
[2018-01-16] MEDS ORDERED: NORMAL SALINE 1000 ML 1,000 ML IV ONE (22:36)
[2018-01-16 23:13] LABS: ABSOLUTE BASOPHILS # (AUTO) 0.1 10^3/uL (0.0-0.2); ABSOLUTE EOSINOPHILS # (AUTO) 0.2 10^3/uL (0.0-0.6); ABSOLUTE MONOCYTES (AUTO) 0.4 10^3/uL (0.1-1.4); ABSOLUTE NEUT (AUTO) 4.2 10^3/uL (1.7-8.2); BASOPHILS % (AUTO) 1.1 % (0-2); EOSINOPHILS % (AUTO) 2.9 % (0-6); HEMOGLOBIN 13.3 g/dL (13.5-17.0); LYMPHOCYTES % (AUTO) 29.5 % (13-45); MEAN CORPUSCULAR HGB CONC 34.9 g/dL (32.0-36.0); MEAN CORPUSCULAR VOLUME 86 fl (80-97); MONOCYTES % (AUTO) 6.3 % (3-13); PLATELET COUNT 298 10^3/uL (150-450); RED BLOOD COUNT 4.42 10^6/uL (4.35-5.55); RED CELL DISTRIBUTION WIDTH 14.1 % (11.5-14.0); SEGMENTED NEUTROPHILS % (AUTO) 60.2 % (42-78); TOTAL CELLS COUNTED % (AUTO) 100 %; WHITE BLOOD COUNT 6.9 10^3/uL (4.0-10.5)
[2018-01-16] MEDS ORDERED: ONDANSETRON HCL INJ/PF 4 MG/2 ML SDV IV ONE (23:21)
--- NOTE | 2018-01-16 23:22 | ER Document Report ---
ED General - General Chief Complaint: Possible Kidney Stone Stated Complaint: BACK PAIN Time Seen by Provider: 01/16/18 22:23 Notes: Patient is a 32-year-old male with a past medical history of recurrent nephrolithiases which have necessitated lithotripsy in the past, seen 3 days ago for complaints of right flank pain who returns with the same. The patient states that he had been doing well since discharge but tonight shortly after dinner he developed an abrupt onset of severe, stabbing, constant pain to his right flank. He states the pain radiates down into his right lower abdomen and into his right testicle. He has noted associated gross hematuria, nausea but no vomiting. He states that this feels exactly the same as when he has had kidney stones in the past. He has been taking antibiotics as directed. Nothing has improved or worsened his pain since onset. He has not contacted his general doctor regarding today's concerns but has a scheduled urology follow -up on Saturday of next week. TRAVEL OUTSIDE OF THE [place] IN LAST 30 DAYS: No - Related Data Allergies/Adverse Reactions: ciprofloxacin [From Cipro] Allergy (Severe, Verified 01/13/18 13:23) Shortness of Breath gadoteridol [From Prohance] Allergy (Severe, Verified 01/13/18 13:23) Shortness of Breath hyoscyamine sulfate [From Levsin] Allergy (Severe, Verified 01/13/18 13:23) Shortness of Breath Iodinated Contrast- Oral and IV Dye Allergy (Severe, Verified 01/13/18 13:23) metoclopramide HCl [From Reglan] Allergy (Severe, Verified 01/13/18 13:23) Shortness of Breath promethazine HCl [From Phenergan] Allergy (Severe, Verified 01/13/18 13:23) Shortness of Breath morphine Allergy (Verified 01/17/18 02:28) Anaphylaxis Penicillins Allergy (Verified 01/13/18 13:23) piperacillin [From Zosyn] Adverse Reaction (Verified 01/13/18 13:23) tazobactam [From Zosyn] Adverse Reaction (Verified 01/13/18 13:23) Past Medical History - General Information source: Patient - Social History Smoking Status: Never Smoker Chew tobacco use (# tins/day): Yes Frequency of alcohol use: Rare Drug Abuse: None Lives with: Spouse/Significant other Family History: Arthritis, CAD, CVA, DM, Hyperlipidemia, Hypertension, Malignancy, Thyroid Disfunction Patient has suicidal ideation: No Patient has homicidal ideation: No - Past Medical History Cardiac Medical History: Reports: Hx Coronary Artery Disease - CARDIAC CATH/ LOOP RECORDER/ ABLATION X 2, Hx Heart Attack - X 3 Pulmonary Medical History: Reports: Hx Pneumonia Neurological Medical History: Reports: Hx Seizures - 2012- COMA FOR ONE WEEK- MEDICATION INDUCED Renal/ Medical History: Reports: Hx Kidney Stones - 23 stones. Denies: Hx Peritoneal Dialysis GI Medical History: Reports: Hx Gastritis, Hx Gastroesophageal Reflux Disease, Hx Hiatal Hernia, Hx Endoscopy Musculoskeletal Medical History: Reports Hx Arthritis, Reports Hx Musculoskeletal Deformity, Reports Hx Musculoskeletal Trauma Skin Medical History: Reports Hx Cellulitis Psychiatric Medical History: Reports: Hx Anxiety, Hx Post Traumatic Stress Disorder Past Surgical History: Reports: Hx Abdominal Surgery - hernia repair, Minal Fundoplication, partial esophagectomy, Hx Appendectomy, Hx Cardiac Surgery - 2X ablation, Hx Inguinal Hernia - 2, Hx Orthopedic Surgery - R shoulder, Other - Minal's fundoplication with esophagectomy. - Immunizations Immunizations up to date: Yes Hx Diphtheria, Pertussis, Tetanus Vaccination: Yes - 09/24/2015 Hx Pneumococcal Vaccination: 06/03/13 Review of Systems - Review of Systems Notes: Constitutional: Negative for fever. HENT: Negative for sore throat. Eyes: Negative for visual changes. Cardiovascular: Negative for chest pain. Respiratory: Negative for shortness of breath. Gastrointestinal: Positive for right flank pain and lower abdominal pain. Positive for nausea Genitourinary: Positive for hematuria Musculoskeletal: Negative for back pain. Skin: Negative for rash. Neurological: Negative for headaches, weakness or numbness. 10 point ROS negative except as marked above and in HPI. Physical Exam - Vital signs Vitals: Temp Pulse Resp BP Pulse Ox 98.8 F 124 H 22 H 124/99 H 96 01/16/18 21:04 01/16/18 21:04 01/16/18 21:04 01/16/18 21:04 01/16/18 21:04 Interpretation: Tachycardic Notes: PHYSICAL EXAMINATION: GENERAL: Appears quite uncomfortable, in pain. HEAD: Atraumatic, normocephalic. EYES: Pupils equal round and reactive to light, extraocular movements intact, sclera anicteric, conjunctiva are normal. ENT: nares patent, oropharynx clear without exudates. Moist mucous membranes. NECK: Normal range of motion, supple without lymphadenopathy LUNGS: Breath sounds clear to auscultation bilaterally and equal. No wheezes rales or rhonchi. HEART: Regular tachycardia without murmurs ABDOMEN: Soft, right CVA tenderness, abdomen otherwise nontender, normoactive bowel sounds. No guarding, no rebound. No masses appreciated. EXTREMITIES: Normal range of motion, no pitting or edema. No cyanosis. NEUROLOGICAL: No focal neurological deficits. Moves all extremities spontaneously and on command. PSYCH: Normal mood, normal affect. SKIN: Warm, Dry, normal turgor, no rashes or lesions noted. Course - Re-evaluation Re-evalutation: 01/16/18 23:20 Patient presents with acute onset of severe right flank pain after being seen 3 days ago for similar symptoms. The patient was diagnosed with a possible passed kidney stone and possible pyelonephritis. He has been taking cephalexin as directed. He states that he been doing quite well until tonight when eating dinner when he had an abrupt onset of severe stabbing pain to the right flank. He states this feels similar to when he had kidney stones in the past. A CT of his abdomen pelvis that was done just 3 days ago did show nonobstructing renal calculi at that time but no evidence of urolithiasis. His presentation is suspicious that 1 of the stones has migrated and is now causing acute renal colic. His previous urinalysis was worrisome for a possible infected stone although urine culture unfortunately was not sent. Repeat labs today otherwise unremarkable the urinalysis is pending. I do not believe it is appropriate to re-CT as the patient has had a multitude of CT scans for kidney stones and just had one 3 days ago. Will proceed with renal ultrasound, pain control and reassess. 01/17/18 02:13 Urinalysis appears improved relative to prior. Patient's pain has resolved. Renal ultrasound without any acute findings. At this time will discharge with return precautions and follow-up recommendations. Verbal discharge instructions given a the bedside and opportunity for questions given. Medication warnings reviewed. Patient is in agreement with this plan and has verbalized understanding of return precautions and the need for primary care follow-up in the next 24-72 hours. - Vital Signs Vital signs: Temp Pulse Resp BP Pulse Ox 97.5 F 98 18 134/95 H 100 01/17/18 02:49 01/17/18 02:49 01/17/18 02:49 01/17/18 02:49 01/17/18 02:49 - Laboratory Result Diagrams: 01/16/18 22:45 01/16/18 22:45 Laboratory results interpreted by me: 01/16/18 01/16/18 01/16/18 22:45 22:45 22:45 Hgb 13.3 L RDW 14.1 H Glucose 74 L ALT 17 L Urine Protein 30 H Urine Blood LARGE H Urine Urobilinogen 2.0 H Ur Leukocyte Esterase TRACE H - Diagnostic Test Radiology reviewed: Reports reviewed Discharge - Discharge Clinical Impression: Right flank pain, Nephrolithiasis Hematuria Qualifiers: Hematuria type: gross Qualified Code(s): R31.0 - Gross hematuria Condition: Good Disposition: HOME, SELF-CARE Additional Instructions: Your symptoms should improve over the course of the next one week. If you continue to have pain for greater than one week or your pain is not controlled with the pain medications that you have been sent home with you need to return to the emergency department. Please also return if you develop fever, persistent vomiting, or any other symptoms that are concerning to you. You should take ibuprofen 600 mg every 6 hours and use the oral morphine as prescribed only for pain not controlled by ibuprofen. You are also been sent home with a medication called Flomax to help pass the stone. You've been given Zofran to assist with nausea. Please follow-up with urology in the next 2-3 days. Prescriptions: Morphine Sulfate [Morphine Ir 15 mg Tablet] 15 mg PO Q6HP PRN #8 tablet PRN Reason: Tamsulosin HCl [Flomax 0.4 mg Cap.sr] 0.4 mg PO DAILY #7 cap.sr.24h
[2018-01-16 23:25] LABS: ALANINE AMINOTRANSFERASE 17 U/L (21-72); ALBUMIN 4.5 g/dL (3.5-5.0); ALKALINE PHOSPHATASE 50 U/L (38-126); ANION GAP 14 (5-19); ASPARTATE AMINO TRANSFERASE 20 U/L (17-59); BILIRUBIN,DIRECT 0.3 mg/dL (0.0-0.4); BILIRUBIN,TOTAL 0.5 mg/dL (0.2-1.3); BLOOD UREA NITROGEN 12 mg/dL (7-20); CALCIUM 9.4 mg/dL (8.4-10.2); CARBON DIOXIDE 28 mmol/L (22-30); CHLORIDE 99 mmol/L (98-107); GLUCOSE 74 mg/dL (75-110); POTASSIUM 3.8 mmol/L (3.6-5.0); SODIUM 141.3 mmol/L (137-145); TOTAL PROTEIN 7.6 g/dL (6.3-8.2)
[2018-01-16] MEDS: HYDROMORPHONE HCL INJ/PF 2 MG/ML AMPULE IV PRN (23:26)
[2018-01-17 00:03] LABS: APPEARANCE,URINE SLIGHTLY-CLOUDY; BILIRUBIN,URINE NEGATIVE (NEGATIVE); COLOR,URINE YELLOW; GLUCOSE, URINE NEGATIVE (NEGATIVE); KETONES,URINE NEGATIVE (NEGATIVE); LEUKOCYTE ESTERASE,URINE TRACE (NEGATIVE); NITRITE,URINE NEGATIVE (NEGATIVE); PROTEIN,URINE 30 mg/dL (NEGATIVE); URINE SPECIFIC GRAVITY 1.025
[2018-01-17] MEDS: HYDROMORPHONE HCL INJ/PF 2 MG/ML AMPULE IV PRN (01:08)
[2018-01-17] MEDS ORDERED: HYDROCODONE/ACETAMINOPHEN 5-325 MG (6 TAB/ER DISP) PO PRN (02:14)
[2018-01-17] MEDS ORDERED: ONDANSETRON ODT 4 MG TAB (6 TAB/ER DISP) PO PRN (02:14)
--- NOTE | 2018-01-17 02:20 | RADIOLOGY REPORT (SQ) ---
Ultrasound renal on 01/17/2018 CLINICAL INDICATION: Right-sided back pain, history of multiple lithotripsies COMPARISON: CT from 01/13/2018 FINDINGS: Multiple sonographic images are obtained throughout the kidneys and bladder, both transverse and sagittal images are obtained. Right kidney measures approximately 8.8 cm in greatest [id number] length. There are small echogenic foci within the right kidney consistent with patient's known small nonobstructing right renal stones. Left kidney measures approximately 10.2 cm in greatest [id number] length. There is a small echogenic focus in the left kidney consistent with small nonobstructing left renal stone. There is no hydronephrosis bilaterally. There is a small exophytic left renal cyst. Kidneys are otherwise normal in size and morphology. No bladder wall thickening or intraluminal filling defect is noted. IMPRESSION: Small nonobstructing bilateral renal stones, otherwise essentially unremarkable.
[2018-01-17 02:50] VITALS: BP 134/95
== END 2018-01-17 02:50 | disposition home or self-care (01) ==
LOC: ER 20:53
DX: N20.0 Calculus of kidney (principal); R31.0 Gross hematuria; M54.9 Dorsalgia, unspecified; I25.10 Atherosclerotic heart disease of native coronary artery without angina pectoris; Z88.3 Allergy status to other anti-infective agents; Z88.0 Allergy status to penicillin; I25.2 Old myocardial infarction
CPT/HCPCS: 96376; 99284; 96361; 96374; 96375; 36415; 87086; 85025; 80053; 81001; 76775; J1885; J1170 ×2; J2405; J7030

== ENCOUNTER 2018-01-19 22:32 | Emergency (ER) | payer OTHER ==
[2018-01-19] MEDS ORDERED: KETOROLAC TROMETHAMINE INJ/PF 30 MG/1 ML SDV IV ONE (23:57)
[2018-01-19] MEDS ORDERED: NORMAL SALINE 1000 ML 1,000 ML IV ONE (23:57)
[2018-01-19] MEDS ORDERED: ONDANSETRON HCL INJ/PF 4 MG/2 ML SDV IV ONE (23:57)
--- NOTE | 2018-01-20 | ER Document Report ---
ED GI/ - General Chief Complaint: Flank Pain Stated Complaint: POSSIBLE STONES RIGHT SIDE Time Seen by Provider: 01/19/18 23:43 Notes: Patient is a 32-year-old male comes emergency department for chief complaint of nausea and right flank plain radiating around to his right abdomen. Patient states he cannot vomit because he has had a Minal fundoplication. He denies fever or chills. He states this is a third stone he has passed this week, he did have a CAT scan and ultrasound performed within the past week as well. He did not see a urologist. He denies fever or chills. He states he is taking Keflex for questionable infection initially as well. He states that other than the pain medication, nausea medication, and Keflex he takes atenolol for history of SVT but denies any other medications. TRAVEL OUTSIDE OF THE [place] IN LAST 30 DAYS: No - Related Data Allergies/Adverse Reactions: ciprofloxacin [From Cipro] Allergy (Severe, Verified 01/13/18 13:23) Shortness of Breath gadoteridol [From Prohance] Allergy (Severe, Verified 01/13/18 13:23) Shortness of Breath hyoscyamine sulfate [From Levsin] Allergy (Severe, Verified 01/13/18 13:23) Shortness of Breath Iodinated Contrast- Oral and IV Dye Allergy (Severe, Verified 01/13/18 13:23) metoclopramide HCl [From Reglan] Allergy (Severe, Verified 01/13/18 13:23) Shortness of Breath promethazine HCl [From Phenergan] Allergy (Severe, Verified 01/13/18 13:23) Shortness of Breath morphine Allergy (Verified 01/17/18 02:28) Anaphylaxis Penicillins Allergy (Verified 01/13/18 13:23) piperacillin [From Zosyn] Adverse Reaction (Verified 01/13/18 13:23) tazobactam [From Zosyn] Adverse Reaction (Verified 01/13/18 13:23) Past Medical History - General Information source: Patient - Social History Smoking Status: Unknown if Ever Smoked Drug Abuse: None Lives with: Family Family History: Arthritis, CAD, CVA, DM, Hyperlipidemia, Hypertension, Malignancy, Thyroid Disfunction - Past Medical History Cardiac Medical History: Reports: Hx Heart Attack - X 3, Other - CARDIAC CATH/ LOOP RECORDER/ ABLATION X 2 Pulmonary Medical History: Reports: Hx Pneumonia Neurological Medical History: Reports: Hx Seizures - 2012- COMA FOR ONE WEEK- MEDICATION INDUCED Renal/ Medical History: Reports: Hx Kidney Stones - 23 stones. Denies: Hx Peritoneal Dialysis GI Medical History: Reports: Hx Gastritis, Hx Gastroesophageal Reflux Disease, Hx Hiatal Hernia, Hx Endoscopy Musculoskeletal Medical History: Reports Hx Arthritis, Reports Hx Musculoskeletal Deformity, Reports Hx Musculoskeletal Trauma Skin Medical History: Reports Hx Cellulitis Psychiatric Medical History: Reports: Hx Anxiety, Hx Post Traumatic Stress Disorder Past Surgical History: Reports: Hx Abdominal Surgery - hernia repair, Minal Fundoplication, partial esophagectomy, Hx Appendectomy, Hx Cardiac Surgery - 2X ablation, Hx Inguinal Hernia - 2, Hx Orthopedic Surgery - R shoulder, Other - Minal's fundoplication with esophagectomy. - Immunizations Immunizations up to date: Yes Hx Diphtheria, Pertussis, Tetanus Vaccination: Yes - 09/24/2015 Hx Pneumococcal Vaccination: 06/03/13 Review of Systems - Review of Systems Constitutional: No symptoms reported EENT: No symptoms reported Cardiovascular: No symptoms reported Respiratory: No symptoms reported Gastrointestinal: See HPI Genitourinary: See HPI Male Genitourinary: No symptoms reported Musculoskeletal: No symptoms reported Skin: No symptoms reported Hematologic/Lymphatic: No symptoms reported Neurological/Psychological: No symptoms reported Physical Exam - Vital signs Vitals: Temp Pulse BP Pulse Ox 98.4 F 117 H 131/97 H 100 01/19/18 22:35 01/19/18 22:35 01/19/18 22:35 01/19/18 22:35 - Notes Notes: GENERAL: Alert, rolled onto his side, holding his right flank. HEAD: Normocephalic, atraumatic. EYES: Pupils equal, round, and reactive to light. Extraocular movements intact. ENT: Oral mucosa moist, tongue midline. NECK: Full range of motion. Supple. Trachea midline. LUNGS: Clear to auscultation bilaterally, no wheezes, rales, or rhonchi. No respiratory distress. HEART: Regular rate and rhythm. No murmur ABDOMEN: No specific areas of tenderness, no guarding. Non-distended. Bowel sounds present in all 4 quadrants. EXTREMITIES: Moves all 4 extremities spontaneously. No edema, normal radial and dorsalis pedis pulses bilaterally. No cyanosis. BACK: No specific CVA tenderness, no midline tenderness, no saddle anesthesia, appears to be right lumbar tenderness over the paraspinal area. No signs of trauma. Normal upper and lower extremity range of motion, strength, distal neurovascular exam. NEUROLOGICAL: Alert and oriented x3. Normal speech. [cranial nerves II through XII grossly intact]. PSYCH: Mildly anxious SKIN: Warm, dry, normal turgor. No rashes or lesions noted. Course - Re-evaluation Re-evalutation: Patient reacts loudly with plapation over the right mid to lower back, questionably the CVA area. No rigid muscles, no saddle anesthesia, moves all extremities without difficulty. Abdomen unremarkable. Patient tachycardic on presentation but not on my evaluation. He does not appear to be in distress. This is his third visit for the same thing in 1 week. No fevers at home. CBC, chemistry unremarkable. Urine shows hematuria. No developing infection. He is already on Keflex. Reviewed CAT scan from earlier this week and this shows 2 mm and 1 mm stones in addition to smaller stones bilaterally. Patient could be passing small stones but I have low suspicion of obstruction or developing infection based on his evaluation and labs. On reevaluation patient in no distress. He is asking for something for pain. Explained that he already received a narcotics prescription a couple of days ago, I cannot give him another one at this time he will, he will be given Toradol instead. Patient states understanding. Patient states he is ready to leave. Discussed follow-up, he states he already has a local urology follow-up in about 2 days. Discussed return precautions. Patient states understanding and agreement. - Vital Signs Vital signs: Temp Pulse Resp BP Pulse Ox 98.3 F 97 15 125/83 99 01/20/18 02:07 01/20/18 02:07 01/20/18 02:07 01/20/18 02:07 01/20/18 02:07 - Laboratory Result Diagrams: 01/20/18 00:38 01/20/18 00:38 Laboratory results interpreted by me: 01/20/18 01/20/18 01/20/18 00:38 00:38 00:38 RDW 14.1 H ALT 18 L Urine Protein 30 H Urine Glucose (UA) 50 H Urine Blood LARGE H Ur Leukocyte Esterase TRACE H Discharge - Discharge Clinical Impression: Right flank pain Hematuria Qualifiers: Hematuria type: unspecified type Qualified Code(s): R31.9 - Hematuria, unspecified Condition: Stable Disposition: HOME, SELF-CARE Additional Instructions: Your evaluation does not show any concerning a normality tonight. You are most likely passing small 1-2 mm stones. Continue current home medications, take Toradol as prescribed additionally if needed, stay hydrated. Follow-up with your urologist appointment. Return if you worsen including fever of 100.4 or greater, severe pain, or any other concerning or worsening symptoms. Prescriptions: Ketorolac Tromethamine [Toradol 10 mg Tablet] 10 mg PO Q8HP PRN #24 tablet PRN Reason: Referrals: ARNIE MORENO PA-C [Primary Care Provider] - Follow up as needed
[2018-01-20 00:54] LABS: ABSOLUTE BASOPHILS # (AUTO) 0.1 10^3/uL (0.0-0.2); ABSOLUTE EOSINOPHILS # (AUTO) 0.1 10^3/uL (0.0-0.6); ABSOLUTE LYMPHOCYTES (AUTO) 2.3 10^3/uL (0.5-4.7); ABSOLUTE MONOCYTES (AUTO) 0.5 10^3/uL (0.1-1.4); ABSOLUTE NEUT (AUTO) 4.8 10^3/uL (1.7-8.2); EOSINOPHILS % (AUTO) 1.1 % (0-6); HEMOGLOBIN 14.1 g/dL (13.5-17.0); LYMPHOCYTES % (AUTO) 29.4 % (13-45); MEAN CORPUSCULAR HEMOGLOBIN 30.6 pg (27.0-33.4); MEAN CORPUSCULAR HGB CONC 35.2 g/dL (32.0-36.0); MEAN CORPUSCULAR VOLUME 87 fl (80-97); MONOCYTES % (AUTO) 6.4 % (3-13); PLATELET COUNT 316 10^3/uL (150-450); RED BLOOD COUNT 4.61 10^6/uL (4.35-5.55); RED CELL DISTRIBUTION WIDTH 14.1 % (11.5-14.0); SEGMENTED NEUTROPHILS % (AUTO) 62.1 % (42-78); TOTAL CELLS COUNTED % (AUTO) 100 %; WHITE BLOOD COUNT 7.7 10^3/uL (4.0-10.5)
[2018-01-20 01:09] LABS: APPEARANCE,URINE SLIGHTLY-CLOUDY; BILIRUBIN,URINE NEGATIVE (NEGATIVE); COLOR,URINE RED; GLUCOSE, URINE 50 mg/dL (NEGATIVE); KETONES,URINE NEGATIVE (NEGATIVE); LEUKOCYTE ESTERASE,URINE TRACE (NEGATIVE); NITRITE,URINE NEGATIVE (NEGATIVE); PROTEIN,URINE 30 mg/dL (NEGATIVE); URINE SPECIFIC GRAVITY 1.013; UROBILINOGEN,URINE NEGATIVE mg/dL (<2.0)
[2018-01-20 01:15] LABS: ALANINE AMINOTRANSFERASE 18 U/L (21-72); ALBUMIN 4.5 g/dL (3.5-5.0); ALKALINE PHOSPHATASE 49 U/L (38-126); ANION GAP 14 (5-19); ASPARTATE AMINO TRANSFERASE 19 U/L (17-59); BILIRUBIN,DIRECT 0.3 mg/dL (0.0-0.4); BILIRUBIN,TOTAL 0.6 mg/dL (0.2-1.3); BLOOD UREA NITROGEN 12 mg/dL (7-20); CALCIUM 9.9 mg/dL (8.4-10.2); CARBON DIOXIDE 27 mmol/L (22-30); CHLORIDE 101 mmol/L (98-107); GLUCOSE 87 mg/dL (75-110); POTASSIUM 3.6 mmol/L (3.6-5.0); SODIUM 142.1 mmol/L (137-145); TOTAL PROTEIN 7.6 g/dL (6.3-8.2)
[2018-01-20] MEDS ORDERED: OXYCODONE HCL IR 5 MG TABLET PO ONE (01:23)
[2018-01-20 02:13] VITALS: BP 125/83
== END 2018-01-20 02:13 | disposition home or self-care (01) ==
LOC: ER 22:32
DX: R31.9 Hematuria, unspecified (principal); R10.9 Unspecified abdominal pain; R11.0 Nausea; Z88.3 Allergy status to other anti-infective agents; Z88.0 Allergy status to penicillin; I25.2 Old myocardial infarction; Z87.442 Personal history of urinary calculi
CPT/HCPCS: 99284; 96361; 96374; 36415; 85025; 80053; 81001; J1885; J2405; J7030